=== PATIENT | female | born 1940 | race Caucasian/White ===

== ENCOUNTER 2020-02-15 18:43 | Emergency (ER) | payer OTHER, SELFPAY ==
[2020-02-15] VITALS (7 sets, daily range): BP systolic 146–188; BP diastolic 56–117; PULSE 68–86; RESP 10–20; TEMP 36.6; O2SAT 98–100
--- NOTE | ~2020-02-15 | XR_ITS ---
EXAMINATION: XR chest 2V DATE: 02/15/2020 19:40 INDICATION: Low to mid right-sided chest pain. TECHNIQUE: Frontal and lateral views of the chest were obtained. COMPARISON: chest CT 07/12/2018 FINDINGS: Lung volumes are normal. There are reticular opacities in right lower lung zone. No pleural effusion or pneumothorax. The heart size is normal. There are surgical clips in the abdomen. IMPRESSION: 1. Stable reticular opacities in right lower lung zone, consistent with chronic interstitial lung dis ease. Reviewed, dictated and finalized at location A. IMPRESSION: 1. Stable reticular opacities in right lower lung zone, consistent with chronic interstitial lung disease.
--- NOTE | 2020-02-15 18:48 | ECG_ITS ---
Measurements Intervals [place] Rate: 74 P: 58 HI: 162 QRS: -3 QRSD: 97 T: 44 QT: 371 QTc: 413 Interpretive Statements SINUS RHYTHM CANNOT RULE OUT SEPTAL INFARCT, AGE INDETERMINATE BASELINE WANDER- V3 ABNORMAL ECG Electronically Signed On 02-16-2020 6:55:48 CDT by Lance Blanchard D.O.
--- NOTE | 2020-02-15 18:54 | PC.NURSE ---
PT REFUSING IV OR BLOOD DRAW AT THIS TIME. STATES YOU MUST THINK I''M CRAZY, ITS NOT MY HEART ITS MY STOMACH, DON'T' COME NEAR ME. ERP NOTED, NO NEW ORDERS.
[2020-02-15 19:21] LABS: Basophils Percent Auto 0.4 % (0.2-1.2); Eosinophils Percent Auto 0.2 % (0-4.4); Hematocrit 36.3 % (37.0-47.0); Hemoglobin 11.7 g/dL (12.0-15.0); Immature Granulocyte Absolute 0.01 K/mm3 (0.00-0.031); Immature Granulocyte Percent A 0.2 % (0-0.5); Lymphocytes Absolute Auto 0.82 K/mm3 (0.9-3.2); Lymphocytes Percent Auto 15.3 % (18.3-44.2); Mean Corpuscular HGB Conc 32.2 g/dl (32-36); Mean Corpuscular Volume 90.1 fl (80-100); Mean Platelet Volume 9.5 fl (7.4-10.4); Monocytes Absolute Auto 0.3 K/mm3 (0.1-0.6); Monocytes Percent Auto 5.2 % (2.6-8.5); Neutrophils Absolute Auto 4.2 K/mm3 (1.3-6.7); Neutrophils Percent Auto 78.7 % (45.5-73.1); Platelet Count Result 223 k/mm3 (150-375); Red Blood Count 4.03 M/mm3 (4.2-5.4); Red Cell Distribution Width 12.9 % (11.5-14.5); White Blood Count 5.4 K/mm3 (4.5-10.0)
--- NOTE | 2020-02-15 19:27 | PC.NURSE ---
BEDSIDE REPORT GIVEN TO MARGARETTE BRITO AT THIS TIME, SHE HAS ASSUMED PT CARE.
[2020-02-15 19:30] LABS: INR 1.1; Prothrombin Time 13.6 Seconds (11.1-14.7)
[2020-02-15 19:31] LABS: Partial Thromboplastin Time 28.9 SECONDS (22.3-36.8)
[2020-02-15 19:33] LABS: Blood Urea Nitrogen 15 mg/dL (7-17); Calcium 8.8 mg/dL (8.4-10.2); Carbon Dioxide 30 mmol/L (22-30); Chloride 105 mmol/L (98-107); Estimated CRCL calculation 59 ml/min; Estimated Glomerular Filt Rate > 60; Glucose 175 mg/dL (65-105); Potassium 4.2 mmol/L (3.4-5.0); Sodium 138 mmol/L (137-145)
--- NOTE | 2020-02-15 19:33 | ED.CHESTPAIN ---
HPI - Chest Pain General Chief Complaint: Chest Pain Stated Complaint: epigastric pain Time Seen by Provider: 02/15/20 19:32 Source: patient and family Mode of arrival: ambulatory Limitations: no limitations History of Present Illness HPI narrative: Patient is a 79-year-old female who presents for evaluation of epigastric pain. Pain at the time of assessment is moderate in nature, 5 out of 10. Pain has been presents since early this morning and constant. Patient reports that her pain improves when she passes gas. She reports having a normal bowel movement this morning. She denies chest pain, shortness of breath, nausea, diaphoresis. Pain was cramping in nature, and worsened this morning. Patient was seen in her primary care physician's office and given IM Toradol which seemed to exacerbate the pain. Patient states that she does not tolerate new medications well and is worried she may have had an adverse reaction to this new medication. Patient denies fever or chills. No urinary symptoms. No pleuritic pain or shortness of breath. No cough. Related Data Allergies Allergy/AdvReac Type Severity Reaction Status Date / Time aspirin Allergy Unknown Verified 07/02/18 09:16 ioversol Allergy Unknown Verified 07/02/18 09:16 Sulfa (Sulfonamide Allergy Unknown Verified 07/02/18 09:16 Antibiotics) Review of Systems Review of Systems: Narrative: CONSTITUTIONAL: Denies fever, chills, or sweats. CARDIOVASCULAR: Denies chest pain, palpitations, or edema. RESPIRATORY: Denies cough or dyspnea. GASTROINTESTINAL: Reports epigastric abdominal pain, denies nausea, vomiting or diarrhea GENITOURINARY: Denies dysuria or hematuria. SKIN: Denies rash or itching. MUSCULOSKELETAL: Denies back pain, joint pain, or myalgia. NEUROLOGIC: Denies headache, numbness, or weakness. [facility] Past Medical History Medical History (Updated 02/15/20 @ 22:19 by Aisha Patton MD) Acid reflux Hypertension Indigestion Surgical History Surgical History (Updated 02/15/20 @ 22:19 by Aisha Patton MD) Hx of gastric bypass Social History Social History Smoking status: Former smoker Smoking end date: 09/07/1966 Alcohol intake: never Substance use type: marijuana Gender identity (if verbalized by the patient): Female Exam Narrative: Exam Narrative: GENERAL: Awake, alert, conversant HEAD: Normocephalic, atraumatic. EYES: PERRLA and EOMI. ENT: Nares clear, no rhinorrhea or epistaxis. Mucous membranes moist. NECK: Supple. CHEST: No respiratory distress, breathing even and non labored HEART: Regular rate, sinus rhythm ABDOMEN:Non distended, non tender, no epigastric tenderness on exam, no rebound or guarding EXTREMITIES: Normal range of motion. No edema. SKIN: Warm, dry, no rash. NEURO:No focal deficits. Alert and oriented x3 Course Vital Signs Vital signs: Vital Signs Temperature 36.6 C 02/15/20 18:49 Pulse Rate 86 02/15/20 18:49 Respiratory Rate 20 02/15/20 18:49 Blood Pressure 188/75 H 02/15/20 18:49 Pulse Oximetry 100 02/15/20 18:49 Temperature 36.6 C 02/15/20 18:49 Pulse Rate 70 02/15/20 21:37 Respiratory Rate 10 L 02/15/20 21:37 Blood Pressure 146/68 H 02/15/20 21:37 Pulse Oximetry 100 02/15/20 21:37 MDM - Chest Pain MDM Narrative Medical decision making narrative: Patient presented to the emergency department for evaluation of epigastric pain. At the time of assessment, ABCs are intact and vital signs are stable. Patient has no chest pain, shortness of breath, diaphoresis or palpitations. Pain is very consistent with the patient's history of chronic indigestion but just worse than normal which is why she was seen in her primary care physician's office this morning. Patient states that she thinks she had an adverse reaction to the Toradol given to her, as she often reacts badly to medications. Patient has a mild elevation in AST, ALT, I do not have prior laboratory results available
[2020-02-15 19:45] LABS: Troponin I < 0.012 ng/mL (0.000-0.034)
--- NOTE | 2020-02-15 20:02 | PC.NURSE ---
Called lab to add on CMP and Lipase.
[2020-02-15 20:18] LABS: Alanine Aminotransferase 57 U/L (4-35); Albumin Level 3.7 g/dL (3.5-5.1); Alkaline Phosphatase 109 U/L (38-126); Aspartate Amino Transferase 207 U/L (14-36); Bilirubin,Total 0.4 mg/dL (0.2-1.3); Blood Urea Nitrogen 14 mg/dL (7-17); Calcium 8.9 mg/dL (8.4-10.2); Carbon Dioxide 30 mmol/L (22-30); Chloride 106 mmol/L (98-107); Estimated CRCL calculation 59 ml/min; Estimated Glomerular Filt Rate > 60; Glucose 180 mg/dL (65-105); Lipase 340 U/L (23-300); Potassium 4.2 mmol/L (3.4-5.0); Sodium 137 mmol/L (137-145)
== END 2020-02-15 22:30 | disposition home or self-care (01) ==
PROVIDERS: Emergency Medicine; Emergency Provider Emergency Medicine; PCP Internal Medicine
DX: R10.13 Epigastric pain (principal); I10 Essential (primary) hypertension; K21.9 Gastro-esophageal reflux disease without esophagitis; Z98.84 Bariatric surgery status; Z87.891 Personal history of nicotine dependence; Z79.82 Long term (current) use of aspirin
CPT/HCPCS: 36415; 71046; 80048; 80053; 83690; 84484; 85025; 85610; 85730; 93005; 99284

== ENCOUNTER 2020-12-24 15:26 | Outpatient (CLI) | payer OTHER, SELFPAY ==
--- NOTE | ~2020-12-24 | XR_ITS ---
EXAMINATION: XR thoracic spine 3V DATE: 12/24/2020 15:55 INDICATION: Thoracic spinal stenosis. TECHNIQUE: 3 views of thoracic spine were obtained. COMPARISON: Chest CT 07/12/2018 FINDINGS: There is kyphosis and 7 degrees dextrocurvature of thoracic spine. There is mild chronic an terior wedging of T6-T8 vertebral bodies. There are endplate osteophytes at most levels. There is mod erately decreased disc height at multiple levels in mid thoracic spine. There are surgical clips arou nd the stomach. IMPRESSION: 1. Moderate thoracic spondylosis. 2. Thoracic kyphosis. Reviewed, dictated and finalized at location B.
== END 2020-12-24 15:27 | disposition home or self-care (01) ==
LOC: ANHIMG 15:31
PROVIDERS: PCP Internal Medicine; Visit Provider Internal Medicine
DX: M47.894 Other spondylosis, thoracic region (principal)
CPT/HCPCS: 72072

== ENCOUNTER 2021-01-19 06:45 | Inpatient (IN) | payer OTHER, SELFPAY ==
[2021-01-19] VITALS (29 sets, daily range): BP systolic 104–172; BP diastolic 46–90; PULSE 56–85; RESP 12–25; TEMP 36.1–37.1; O2SAT 90–100; BMI 26.7
--- NOTE | ~2021-01-19 | XR_ITS ---
EXAMINATION: XR chest 1V portable EXAM DATE: 02/07/2021 11:35 INDICATION: Hypoxia. TECHNIQUE: Portable AP frontal chest x-ray was obtained. Comparison is made to prior examination from 02/03/2021. FINDINGS: Dobhoff feeding tube in expected position. There is a left-sided PICC line. Patient is rec eiving oxygen. Multiple upper abdominal surgical clips, anastomosis material. Again there our small bilateral pneumothoraces, left greater than right, stable. Evidence of pneumome diastinum with improvement. Bilateral axillary gas. Moderate amount of ill-defined bilateral acute ai rspace disease. There are no sizable pleural effusions. Cardiomediastinal silhouette is normal. The bones are osteopenic. There are bony degenerative changes. IMPRESSION: 1. Stable small apical pneumothoraces and diffuse airspace disease. 2. Improving pneumomediastinum. Reviewed, dictated and finalized at location B.
--- NOTE | ~2021-01-19 | XR_ITS ---
EXAMINATION: XR abdomen NG/feed tube insert DATE: 02/05/2021 10:25 INDICATION: Nasogastric tube placement. TECHNIQUE: An upright view of the abdomen was obtained. COMPARISON: Chest single view 02/03/2021 FINDINGS: Again seen is subcutaneous emphysema in the chest wall bilaterally. Pneumomediastinum is ag ain noted. The nasogastric tube is folded on itself with tip in the distal esophagus. There are surgi aurelia changes of the stomach. A left upper extremity peripherally inserted central venous catheter (PIC C) is seen with tip at the superior cavoatrial junction. There are no dilated loops of bowel. The low er abdomen is excluded. IMPRESSION: 1. Nasogastric tube folded on itself with tip in the distal esophagus. Reviewed, dictated and finalized at location A.
--- NOTE | ~2021-01-19 | XR_ITS ---
EXAMINATION: XR chest 1V portable DATE: 01/27/2021 05:47 INDICATION: Pneumothorax TECHNIQUE: frontal view of the chest was obtained. COMPARISON: Chest radiograph dated 01/26/2021 FINDINGS: Minimal lucency at the periphery of the right apex and inferomedial aspect of the left lung which cou ld represent tiny residual bilateral pneumothoraces versus gas associated with pneumomediastinum and chest wall subcutaneous emphysema. Interval improvement in the patchy airspace opacities in the bilat eral mid to lower lung zones. The cardiomediastinal silhouette is normal. Postoperative changes in th e left epigastric region. IMPRESSION: 1. Interval decrease in bilateral airspace opacities which could represent pneumonia and/or pulmonary edema. 2. Minimal change in pneumomediastinum, subcutaneous emphysema and possible tiny bilateral pneumothor aces. Reviewed, dictated and finalized at location A. IMPRESSION: 1. Interval decrease in bilateral airspace opacities which could represent pneu monia and/or pulmonary edema. 2. Minimal change in pneumomediastinum, subcutaneous emphysema and possible tin y bilateral pneumothoraces.
--- NOTE | ~2021-01-19 | XR_ITS ---
EXAMINATION: XR chest 1V portable DATE: 02/03/2021 10:19 INDICATION: Shortness of breath. COVID-19 pneumonia. TECHNIQUE: A single frontal view of the chest was obtained. COMPARISON: Chest single view 02/01/2021, chest CT 01/25/2021 FINDINGS: Again seen is subcutaneous emphysema in the chest wall bilaterally. There are small bilater al pneumothoraces. There is a diffuse interstitial pattern in the lungs. There are mild airspace opac ities in the mid and lower lung zones. No pleural effusion. The heart size is normal. Pneumomediastin um is noted. A left upper extremity peripherally inserted central venous catheter (PICC) is seen with tip in the superior vena cava. There are surgical changes of the stomach. IMPRESSION: 1. Diffuse lung disease with slight improvement, consistent with COVID-19 pneumonia without other wit h mild pulmonary edema. 2. Small bilateral pneumothoraces with worsening on the right. 3. Pneumomediastinum and bilateral subcutaneous emphysema again seen. Reviewed, dictated and finalized at location A. IMPRESSION: 1. Diffuse lung disease with slight improvement, consistent with COVID-19 pneum onia without other with mild pulmonary edema. 2. Small bilateral pneumothoraces with worsening on the right. 3. Pneumomediastinum and bilateral subcutaneous emphysema again seen.
--- NOTE | ~2021-01-19 | XR_ITS ---
EXAMINATION: XR abdomen NG/feed tube rechec DATE: 02/05/2021 10:57 INDICATION: Nasogastric tube adjustment. TECHNIQUE: An upright view of the abdomen was obtained. COMPARISON: Abdomen radiograph at 10:14 AM, chest single view 02/03/2021 FINDINGS: The lower abdomen is excluded. There are no dilated loops of bowel. There are surgical morgan ges of the stomach. The nasogastric tube tip is at the gastroesophageal junction. A left upper extrem ity peripherally inserted central venous catheter (PICC) is seen with tip in the superior vena cava. Pneumomediastinum is noted. There is subcutaneous gas in the chest wall bilaterally. Again seen are s mall bilateral pneumothoraces. There are airspace opacities in the lungs, worst at left lung base. West rgical clips in the right upper quadrant are likely from cholecystectomy. IMPRESSION: 1. Nasogastric tube tip at the gastroesophageal junction. 2. Diffuse lung disease, consistent with pneumonia. 3. Pneumomediastinum and small bilateral pneumothoraces, stable from 02/03/2021. Persistent subcutaneo us emphysema. Reviewed, dictated and finalized at location A. IMPRESSION: 1. Nasogastric tube tip at the gastroesophageal junction. 2. Diffuse lung disease, consistent with pneumonia. 3. Pneumomediastinum and small bilateral pneumothoraces, stable from 02/03/2021. Persistent subcutaneous emphysema.
--- NOTE | ~2021-01-19 | XR_ITS ---
EXAMINATION: XR chest 1V portable INDICATION: Shortness of breath TECHNIQUE: Portable AP chest at 0504 hours COMPARISON: 01/28/2021 FINDINGS: A left upper extremity PICC ends with its tip in the midsuperior vena cava. Diffuse opaciti es persist in all lung zones without significant change. No pleural effusion or pneumothorax is ident ified. There is a small amount of persistent pneumomediastinum. Soft tissue gas is also noted in the right axilla. The heart size is normal. IMPRESSION: 1. Stable diffuse lung disease, consistent with pneumonia and/or pulmonary edema and/or acute respira tory distress syndrome (ARDS). 2. Small amount of residual pneumomediastinum and soft tissue gas in the right axilla. Reviewed, dictated and finalized at location A. IMPRESSION: 1. Stable diffuse lung disease, consistent with pneumonia and/or pulmonary aquilino a and/or acute respiratory distress syndrome (ARDS). 2. Small amount of residual pneumomediastinum and soft tissue gas in the right axilla.
--- NOTE | ~2021-01-19 | XR_ITS ---
XR chest PICC line 01/28/2021 17:12 Indication: PICC line placement Procedure: AP portable chest Comparison: Comparison to multiple prior studies sequentially, with oldest reviewed study dated 02/14. Findings: Heart size normal. There is diffuse bilateral airspace disease which has progressed since p rior examination. There is pneumomediastinum. No definite pneumothorax visualized. There is subcutane ous gas overlying the right scapula. No acute osseous abnormality. PICC line tip in the SVC. Impression: 1: Progression of diffuse bilateral airspace disease which may represent edema and/or pneumonia. 2: Small pneumomediastinum. Improved subcutaneous gas overlying the right shoulder. No definitive pn eumothorax. Reviewed, dictated and finalized at location A. Impression: 1: Progression of diffuse bilateral airspace disease which may represent edema and/or pneumonia. 2: Small pneumomediastinum. Improved subcutaneous gas overlying the right shou lder. No definitive pneumothorax.
--- NOTE | ~2021-01-19 | XR_ITS ---
EXAMINATION: XR chest 1V portable INDICATION: Shortness of breath TECHNIQUE: Portable AP chest at 0510 hours COMPARISON: 01/29/2021 FINDINGS: A left upper extremity PICC ends with its tip in the midsuperior vena cava. Diffuse opaciti es persist in all lung zones with slight worsening in the left upper lung zone. There is no pleural e ffusion or pneumothorax. The cardiomediastinal silhouette is stable. There are surgical changes in th e upper abdomen. Previously described pneumomediastinum and soft tissue gas in the right axilla are n o longer identified. The patient's hand projects over the left lung base. IMPRESSION: 1. Diffuse lung disease with interval worsening in the left upper lung zone, consistent with pneumoni a and/or pulmonary edema and/or acute respiratory distress syndrome (ARDS). 2. Previously described pneumomediastinum and soft tissue gas in the right axilla are no longer ident ified. Reviewed, dictated and finalized at location A. IMPRESSION: 1. Diffuse lung disease with interval worsening in the left upper lung zone, co nsistent with pneumonia and/or pulmonary edema and/or acute respiratory distres s syndrome (ARDS). 2. Previously described pneumomediastinum and soft tissue gas in the right axil la are no longer identified.
--- NOTE | ~2021-01-19 | CT_ITS ---
EXAMINATION: CTA chest PE protocol DATE: 01/22/2021 05:14 INDICATION: Decreased oxygenation. TECHNIQUE: Computed tomography angiography (CTA) of the chest was performed with 100 mL Omnipaque-350 intravenous contrast timed to evaluate the pulmonary arteries. Coronal maximum intensity projection 3D-reconstructions were created by the technologist. Automated exposure control and iterative reconst ruction technique were employed. The dose-length product was 482.51 mGy-cm. COMPARISON: Chest CT 07/12/2018 FINDINGS: There are widespread groundglass opacities involving all lung segments with some areas of c razy paving. There is chronic peripheral septal thickening involving all lobes. No bronchiectasis or honeycombing. Cardiomegaly is noted. There are coronary artery calcifications. No pericardial effusio n. There is no pulmonary embolus. There is mild mediastinal lymphadenopathy, likely reactive. There a re surgical changes in the stomach. There is a 2 mm stone in right kidney. There is thoracic kyphosis , dextroscoliosis, and moderate spondylosis. IMPRESSION: 1. Acute diffuse lung disease, consistent with atypical pneumonia such as COVID-19 pneumonia versus p ulmonary edema. 2. Mild chronic interstitial lung disease. 3. No pulmonary embolus. Sensitivity is mildly decreased by motion artifact. 4. Mild mediastinal lymphadenopathy, likely reactive. Reviewed, dictated and finalized at location A. IMPRESSION: 1. Acute diffuse lung disease, consistent with atypical pneumonia such as COVID -19 pneumonia versus pulmonary edema. 2. Mild chronic interstitial lung disease. 3. No pulmonary embolus. Sensitivity is mildly decreased by motion artifact. 4. Mild mediastinal lymphadenopathy, likely reactive.
--- NOTE | ~2021-01-19 | CT_ITS ---
EXAMINATION: CTA chest PE protocol DATE: 01/25/2021 22:10 INDICATION: Increasing shortness of breath TECHNIQUE: Computed tomography angiography (CTA) of the chest was performed with 100 mL Omnipaque-350 intravenous contrast timed to evaluate the pulmonary arteries. Coronal maximum intensity projection 3D-reconstructions were created by the technologist. The dose-length product (DLP) was 270.68 mGy-cm. Automated exposure control and iterative reconstruction technique were employed. COMPARISON: 01/22/2021 FINDINGS: The pulmonary arteries are well-opacified. No pulmonary embolism is identified. There are w idespread groundglass opacities throughout all lung zones which demonstrate interval worsening. There is also been development of widespread pneumomediastinum which tracks into the neck and bilateral ax illary. A small right pneumothorax has also developed. There is no pleural effusion. 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 No pathologically enlarged thoracic lymph nodes are identified. The heart size is normal. IMPRESSION: 1. Development of widespread pneumomediastinum tracking into the neck and bilateral axillae. 2. Small right pneumothorax. 3. No pulmonary embolus identified. 4. Interval worsening widespread groundglass opacities, consistent with pneumonia versus pulmonary ed faustina. These findings [facility] 01/25/2021. Reviewed, dictated and finalized at location A. IMPRESSION: 1. Development of widespread pneumomediastinum tracking into the neck and bilat eral axillae. 2. Small right pneumothorax. 3. No pulmonary embolus identified. 4. Interval worsening widespread groundglass opacities, consistent with pneumon ia versus pulmonary edema. These findings were discussed with [facility] hours on 01/25/2021.
--- NOTE | ~2021-01-19 | XR_ITS ---
EXAMINATION: XR chest 1V portable DATE: 02/08/2021 00:56 INDICATION: Shortness of breath and increasing oxygen need TECHNIQUE: frontal view of the chest was obtained. COMPARISON: Chest radiograph dated 02/07/2021 FINDINGS: Left upper extremity peripherally inserted central venous catheter (PICC) tip at the superior cavoat rial junction. Postoperative changes in the upper abdomen corresponding to prior gastric bypass proce dure. The weighted tip of a Dobbhoff type nasoenteric feeding tube remains coiled below the gastroeso phageal junction within the residual gastric remnant. No significant interval change accounting for differences in patient positioning and airspace opaciti es in the bilateral mid and lower lung zones. Persistent subcutaneous emphysema at the bilateral uppe r chest and shoulders. Minimal lucency at the periphery of the bilateral apices of the lungs which co uld be related to residual pneumomediastinum or tiny pneumothoraces. No pleural effusion. The cardiom ediastinal silhouette is normal. Moderate thoracic spondylosis. IMPRESSION: 1. No interval change in patchy bilateral lung disease consistent with pneumonia, atelectasis, mild p ulmonary edema or some combination thereof. 2. Persistent pneumomediastinum, soft tissue gas at the bilateral upper chest and shoulders and likel y persistent tiny biapical pneumothoraces. Reviewed, dictated and finalized at location A. IMPRESSION: 1. No interval change in patchy bilateral lung disease consistent with pneumoni a, atelectasis, mild pulmonary edema or some combination thereof. 2. Persistent pneumomediastinum, soft tissue gas at the bilateral upper chest a nd shoulders and likely persistent tiny biapical pneumothoraces.
--- NOTE | ~2021-01-19 | XR_ITS ---
EXAMINATION: XR chest 1V portable DATE: 02/01/2021 11:51 INDICATION: Shortness of breath TECHNIQUE: frontal view of the chest was obtained. COMPARISON: Chest radiograph dated 01/30/2021 FINDINGS: Left upper extremity peripherally inserted central venous catheter (PICC) tip at the caudal superior vena cava. Minimal change attending for differences in patient positioning and scattered patchy airs pace opacities throughout both lungs. No pleural effusion. Persistent pneumomediastinum and subcutane ous emphysema in the upper chest, left greater than right. Thin peripheral lucencies at the bilateral apices likely representing tiny bilateral pneumothoraces although appearance could be artifact of holguin bpleural emphysema. The cardiomediastinal silhouette is normal. Cholecystectomy clips in right upper quadrant and additional postoperative changes with multiple sutures in the left epigastric region. IMPRESSION: 1. No significant interval change in diffuse patchy bilateral lung disease which could represent pneu monia and/or pulmonary edema. 2. Persistent pneumomediastinum and subcutaneous emphysema in the upper chest and likely tiny biapica l pneumothoraces. Reviewed, dictated and finalized at location A. IMPRESSION: 1. No significant interval change in diffuse patchy bilateral lung disease whic h could represent pneumonia and/or pulmonary edema. 2. Persistent pneumomediastinum and subcutaneous emphysema in the upper chest a nd likely tiny biapical pneumothoraces.
--- NOTE | ~2021-01-19 | XR_ITS ---
EXAMINATION: XR chest 1V portable DATE: 01/26/2021 08:51 INDICATION: Pneumonia TECHNIQUE: frontal view of the chest was obtained. COMPARISON: Chest radiograph dated 01/19/[address] dated 01/25/2021 FINDINGS: There is pneumomediastinum and subcutaneous emphysema about the right shoulder. Diffuse bilateral lyle undglass opacities with more focal consolidation in the left lower lung zone. No pleural effusion. Ti ny biapical pneumothoraces are not excludable however appearance on prior CT suggests this is more li vilma to represent emphysema in the immediately subpleural soft tissues. Heart size is normal. Atheros clerotic aorta. Postoperative changes in the epigastric region likely related to prior gastric bypass . IMPRESSION: 1. Diffuse bilateral lung disease with more focal consolidation in the left lower lung zone which cou ld represent pneumonia and/or pulmonary edema. 2. Lucencies at the periphery of the bilateral apices of lungs which could represent tiny pneumothora john or more likely pneumomediastinum and subcutaneous emphysema.. Reviewed, dictated and finalized at location A. IMPRESSION: 1. Diffuse bilateral lung disease with more focal consolidation in the left low er lung zone which could represent pneumonia and/or pulmonary edema. 2. Lucencies at the periphery of the bilateral apices of lungs which could repr esent tiny pneumothoraces or more likely pneumomediastinum and subcutaneous emp hysema..
--- NOTE | ~2021-01-19 | XR_ITS ---
XR chest 2V DATE: 01/19/2021 07:34 INDICATION: Intermittent dizziness. Weakness. Bilateral leg pain. TECHNIQUE: AP and lateral views COMPARISON: 02/15/2020 AP and lateral chest FINDINGS: Heart size appears within normal range. There is aortic arch calcification. No hilar or med iastinal enlargement is evident. Minimal scattered patchy infiltrate and/or atelectasis of the lungs is suggested bilaterally. Diffuse osteopenia. Osteoarthritic change at the left glenohumeral joint. Postoperative changes of the left and right abdomen. IMPRESSION: Minimal scattered patchy infiltrate and/atelectasis of the lungs Reviewed, dictated and finalized at location A.
--- NOTE | ~2021-01-19 | XR_ITS ---
EXAMINATION: XR abdomen NG/feed tube rechec DATE: 02/05/2021 10:26 INDICATION: Nasogastric tube adjustment. TECHNIQUE: An upright view of the abdomen was obtained. COMPARISON: Abdomen single view at 10:02 AM, chest single view 02/03/2021 FINDINGS: The lower abdomen is excluded. There are no dilated loops of bowel. There are surgical morgan ges of the stomach. Surgical clips in the right upper quadrant are likely from cholecystectomy. Nasog astric tube is folded on itself in the esophagus. A left upper extremity peripherally inserted centra l venous catheter (PICC) is seen with tip at the superior cavoatrial junction. Pneumomediastinum is n oted. There is subcutaneous emphysema in the chest wall bilaterally. There are airspace opacities in the lungs, worst at left lung base. IMPRESSION: 1. Nasogastric tube folded on itself in the esophagus. 2. Diffuse lung disease with worsening at left lung base from 02/03/2021, consistent with pneumonia. 3. Pneumomediastinum. Chest wall subcutaneous emphysema. Reviewed, dictated and finalized at location A. IMPRESSION: 1. Nasogastric tube folded on itself in the esophagus. 2. Diffuse lung disease with worsening at left lung base from 02/03/2021, consis tent with pneumonia. 3. Pneumomediastinum. Chest wall subcutaneous emphysema.
--- NOTE | ~2021-01-19 | XR_ITS ---
EXAMINATION: XR fl Dobhoff insert/rad w img DATE: 02/05/2021 12:28 INDICATION: Unsuccessful nasogastric tube placement. Fluoroscopic guidance requested for feeding tube advancement. TECHNIQUE: Attempt was initially made to reposition the existing nasogastric tube the distal tip of grupo ye was positioned in the distal esophagus. Despite multiple attempts this proved unsuccessful. 5 mm of water-soluble contrast was injected into the tube prior to removal to delineate the course of the lumen which is comparable dictated by postoperative change of prior gastric bypass procedure. The na sogastric tube is in removed and a Dobbhoff type feeding tube was advanced under fluoroscopic observa tion beyond the gastroesophageal junction into the gastric remnant but was unable to be advanced furt her. Some redundancy to the tube was left in the gastric remnant and the tube was attached to the adis es with adhesive tape. A single fluoroscopic image was recorded. The amount of fluoroscopy time used during this procedure was 2.1 minutes. COMPARISON: Multiple radiographs dated 02/05/[address] dated 01/25/2021 FINDINGS: Image demonstrates the weighted tip of the Dobbhoff type nasoenteric feeding tube coiled within the s mall gastric remnant in the left upper quadrant with postoperative change of prior Mary-en-Y gastric bypass procedure which is better delineated on prior CT. There is a small amount of injected contrast within the lumen of the gastric remnant. Incidentally noted on real-time imaging was pneumomediastin um and subcutaneous emphysema in the upper chest. IMPRESSION: 1. Successful fluoroscopic guided advancement of a Dobbhoff type nasal enteric feeding tube into the gastric remnant post prior Mary-en-Y gastric bypass procedure. Reviewed, dictated and finalized at location A. IMPRESSION: 1. Successful fluoroscopic guided advancement of a Dobbhoff type nasal enteric feeding tube into the gastric remnant post prior Mary-en-Y gastric bypass kellie lerma
--- NOTE | 2021-01-19 06:53 | ECG_ITS ---
Measurements Intervals [place] Rate: 73 P: 59 NE: 170 QRS: -11 QRSD: 90 T: 47 QT: 382 QTc: 424 Interpretive Statements SINUS RHYTHM VOLTAGE CRITERIA FOR LVH CANNOT RULE OUT SEPTAL INFARCT, AGE INDETERMINATE BASELINE ARTIFACT- I, III, AVL, AVF ABNORMAL ECG Electronically Signed On 01-19-2021 7:52:21 CDT by Lance Blanchard D.O.
--- NOTE | 2021-01-19 07:05 | ED.WEAKNESS ---
HPI - Weakness General Chief complaint: Weakness Stated complaint: weakness Time Seen by Provider: 01/19/21 07:01 History of Present Illness HPI Narrative: 80 yo female presents to the ED for weakness. She reports that she has been sick for 5 years. She says that she has been evaluated for this multiple times and no cause has ever been found. She reports that she has had no appetite for quite some time. She has had 60 pound unintentional weight loss. Over the past few weeks she has had nausea and diarrhea. No blood, stools have been dark. Now she is feeling extremely weak and fatigued. She reportedly just started seeing a artist model and was started on prednisone. She does not know why she is seeing them or what the medication is for. No CP, SOB, syncope, abdominal pain, dysuria, hematuria. Related Data Home Medications Medication Instructions Recorded Confirmed hydrocodone-acetaminophen [[place]] 1 tablet Q8H PRN 01/19/21 01/19/21 morphine 15 mg PO Q12H PRN 01/19/21 01/19/21 prednisone 5 mg PO DAILY 01/19/21 01/19/21 Allergies Allergy/AdvReac Type Severity Reaction Status Date / Time aspirin Allergy Unknown Unknown Verified 01/19/21 15:51 ioversol Allergy Unknown Unknown Verified 01/19/21 15:51 Sulfa (Sulfonamide Allergy Unknown Unknown Verified 01/19/21 15:51 Antibiotics) Review of Systems Review of Systems: All systems reviewed & are unremarkable except as noted in HPI and below Constitutional: Constitutional: Denies chills, Reports fatigue, Denies fever(s) and Reports weakness Eyes: Eyes: Reports no additional eye complaints ENT: Reports dizziness and Denies sore throat Cardiovascular: Cardiovascular: Denies chest pain Respiratory: Respiratory: Denies dyspnea Gastrointestinal: Gastrointestinal: Reports as per HPI Genitourinary: Genitourinary: Denies hematuria and Denies dysuria Musculoskeletal: Musculoskeletal: Reports no additional musculoskeletal complaints Neurologic: Reports as per HPI PMFSH Past Medical History Medical History Acid reflux Hypertension Indigestion Surgical History Surgical History Hx of gastric bypass Social History Social History Smoking status: Never smoker Smoking end date: 09/07/1966 Alcohol intake: never Substance use type: marijuana Gender identity (if verbalized by the patient): Female Spiritual care concerns: No Exam Const: General: no acute distress and alert Orientation/consciousness: patient oriented x3 HENMT: Mouth: Yes dry mucous membranes Eyes: Pupils: Equal, round and reactive pupils present EOM: EOMs intact bilaterally Neck: Neck: normal visual inspection Chest: Chest palpation & inspection: normal inspection of the chest Resp: Effort & Inspection: normal respiratory effort Auscultation: clear to auscultation bilaterally Cardio: Rate: regular rate Rhythm: regular rhythm GI: Inspection: non-distended GI Palp: Yes Soft to palpation, Yes Tenderness to palpation present (GI) (mild,diffuse), No Guarding due to palpation present (GI), No Palpable mass present and No Rebound tenderness present Skin: General skin exam: pallor Other: dried feces on feet and ankles Neuro: General: patient oriented x3, moves all extremities, no focal motor deficits and CN's II-XI intact bilaterally Speech: normal speech Extrem: General: no edema Course Vital Signs Vital signs: Vital Signs Temperature 37.1 C 01/19/21 06:45 Pulse Rate 77 01/19/21 06:45 Respiratory Rate 16 01/19/21 06:45 Blood Pressure 133/50 L 01/19/21 06:45 Pulse Oximetry 96 01/19/21 06:45 Temperature 36.4 C 01/22/21 06:00 Pulse Rate 70 01/22/21 06:00 Respiratory Rate 18 01/22/21 06:00 Blood Pressure 168/64 H 01/22/21 06:00 Pulse Oximetry 92 01/22/21 06:00 MDM - W
[2021-01-19 07:31] LABS: Hematocrit 32.2 % (37.0-47.0); Hemoglobin 10.4 g/dL (12.0-15.0); Immature Granulocyte Absolute 0.02 K/mm3 (0.00-0.031); Immature Granulocyte Percent A 0.5 % (0-0.5); Lymphocytes Absolute Auto 0.26 K/mm3 (0.9-3.2); Mean Corpuscular HGB Conc 32.3 g/dl (32-36); Mean Corpuscular Hemoglobin 27.9 pg (26-34); Mean Corpuscular Volume 86.3 fl (80-100); Mean Platelet Volume 10.2 fl (7.4-10.4); Monocytes Absolute Auto 0.3 K/mm3 (0.1-0.6); Neutrophils Absolute Auto 3.2 K/mm3 (1.3-6.7); Neutrophils Percent Auto 85.5 % (45.5-73.1); Platelet Count Result 172 k/mm3 (150-375); Red Blood Count 3.73 M/mm3 (4.2-5.4); Red Cell Distribution Width 13.2 % (11.5-14.5); White Blood Count 3.7 K/mm3 (4.5-10.0)
[2021-01-19 07:36] LABS: Add Urine Microscopic? YES; Appearance Urine Cloudy (Clear); Bilirubin Urine Negative (Negative); Blood Urine 1+ (Negative); Color Urine Amber (Yellow); Glucose Urine UA Negative (Negative); Ketones Urine Trace mg/dL (Negative); Leukocyte Esterase Ur Negative LEU/UL (Negative); Mucus Urine Heavy /lpf; Nitrate Urine Negative (Negative); Protein Urine 2+ mg/dL (Negative); RBC Urine 0-2 /hpf (0-2); Specific Grav Ur 1.026 (1.001-1.035); Squamous Epithelial Cell Urine Rare /hpf (Few); Urobilinogen Urine Negative mg/dL (<2.0); WBC Urine 0-3 /hpf
[2021-01-19 07:40] LABS: Alanine Aminotransferase 29 U/L (4-35); Alkaline Phosphatase 65 U/L (38-126); Anion Gap -1 mmol/L (8-16); Aspartate Amino Transferase 77 U/L (14-36); Bilirubin,Total < 0.1 mg/dL (0.2-1.3); Blood Urea Nitrogen 17 mg/dL (7-17); Calcium 7.8 mg/dL (8.4-10.2); Carbon Dioxide 28 mmol/L (22-30); Chloride 106 mmol/L (98-107); Estimated Glomerular Filt Rate > 60; Glucose 120 mg/dL (65-105); Potassium 3.5 mmol/L (3.4-5.0); Sodium 133 mmol/L (137-145)
[2021-01-19] MEDS: ONDANSETRON INJ 4 MG/2 ML VIAL IV PUSH ×2 (08:35→12:47)
[2021-01-19] MEDS: SODIUM CHLORIDE 0.9% IV 1,000 ML 999 ML IV CONT (08:36)
--- NOTE | 2021-01-19 13:02 | PM.IMHP ---
H&P: HPI History of Present Illness Date/Time: 01/19/21 13:02 Patient is 80-year-old female presented emergency department with a complaint chronic weakness chronic pelvic pain for 5 over 5 years patient states see has seen several gynecology and physician including [facility] at [facility] without any diagnosis recently patient was seen by what she described as rheumatology and patient was started on morphine, Vicodin and prednisone this regimen does help with her pain, is also seen by psychiatrist without any diagnosis or treatment, patient is quite depressed and crying, apparently her is very ill with cancer, and children are not much help in taking care of their parents, I did offer to transfer the patient to Psychiatry [facility] at [facility] patient refused, patient also presented to emergency department in January of 2020 at that time patient refused workup and was discharged, plan is to provide PT OT for the patient will continue her pain management, will monitor overnight and possibly discharge the patient in the morning., Patient is admitted observation status Chief Complaint: Chronic pelvic pain Review of Systems Review of Systems: All systems reviewed & are unremarkable except as noted in HPI and below PMFSH Past Medical History Medical History (Updated 01/19/21 @ 13:25 by Margarette Peter MD) Acid reflux Hypertension Indigestion Surgical History Surgical History (Updated 02/15/20 @ 22:19 by Aisha Patton MD) Hx of gastric bypass Social History Social History Smoking status: Never smoker Smoking end date: 09/07/1966 Alcohol intake: never Substance use type: marijuana Gender identity (if verbalized by the patient): Female Spiritual care concerns: No Meds Home Medications and Allergies Home Medications Medication Instructions Recorded Confirmed Type hydrocodone-acetaminophen [[place]] tablet Q8H PRN 01/19/21 History morphine 15 mg PO Q12H PRN 01/19/21 History prednisone 5 mg PO DAILY 01/19/21 History Allergies Allergy/AdvReac Type Severity Reaction Status Date / Time aspirin Allergy Unknown Unknown Verified 01/19/21 06:59 ioversol Allergy Unknown Unknown Verified 01/19/21 06:59 Sulfa (Sulfonamide Allergy Unknown Unknown Verified 01/19/21 06:59 Antibiotics) Vital Signs Vital Signs - 24 hr 01/19/21 06:45 01/19/21 06:57 01/19/21 07:00 Temperature 98.7 F Pulse Rate 77 85 Respiratory Rate 16 23 H Blood Pressure 133/50 L Pulse Oximetry 96 93 94 01/19/21 07:01 01/19/21 07:15 01/19/21 07:35 Temperature Pulse Rate 82 73 71 Respiratory Rate 18 12 14 Blood Pressure 150/64 H Pulse Oximetry 93 91 01/19/21 07:45 01/19/21 08:00 01/19/21 08:15 Temperature Pulse Rate 71 66 63 Respiratory Rate 19 17 18 Blood Pressure Pulse Oximetry 92 94 93 01/19/21 08:30 01/19/21 08:36 01/19/21 08:41 Temperature Pulse Rate 67 65 67 Respiratory Rate 15 17 14 Blood Pressure 115/72 Pulse Oximetry 95 96 97 01/19/21 08:43 01/19/21 08:45 01/19/21 09:00 Temperature Pulse Rate 64 62 58 L Respiratory Rate 13 14 15 Blood Pressure 117/52 L Pulse Oximetry 94 95 98 01/19/21 09:01 01/19/21 09:15 01/19/21 09:30 Temperature Pulse Rate 62 65 73 Respiratory Rate 15 15 13 Blood Pressure 123/51 L Pulse Oximetry 92 100 01/19/21 09:31 01/19/21 09:45 01/19/21 10:00 Temperature Pulse Rate 79 67 63 Respiratory Rate 25 H 19 25 H Blood Pressure 104/90 121/47 L Pulse Oximetry 95 96 92 01/19/21 10:01 01/19/21 10:15 01/19/21 10:30 Temperature Pulse Rate 63 60 57 L Respiratory Rate 21 H 16 16 Blood Pressure Pulse Oximetry 90 90 93 01/19/21 10:31 01/19/21 11:20 01/19/21 11:21 Temperature 97.2 F L Pulse Rate 56 L 65 66 Respiratory Rate 16 16 16 Blood Pressure 111/46 L 131/64 123/61 Pulse Oximetry 91 94 95 Exam Narrative: Exam Narrative: Elderly frail Patient is comfortable, NAD HEENT:
[2021-01-19] MEDS: LACTATED RINGERS 1,000 ML 75 ML IV CONT (15:28)
--- NOTE | 2021-01-19 15:55 | ADMGEN ---
This patient, Grisel Weston, was admitted to Medical Room 250-01. Patient/family oriented to hospital policies and general routines including ID bracelet, bed and alarms, visiting hours, pain management, procedures, bathroom and other care routines, personal items, smoking policy, room service/diet, and visiting hours. Information on how to activate the Rapid Response Team has been discussed. Patient/Family are encouraged to report perceived risks to care and to ask questions if they do not understand what they are told or what they should do.
[2021-01-19] MEDS: HYDROcodone/acetaminophen (*CRX) 10-325 MG TABLET 1 TAB BY MOUTH (18:57)
[2021-01-20] MEDS: HYDROcodone/acetaminophen (*CRX) 10-325 MG TABLET 1 TAB BY MOUTH ×4 (01:00→17:51)
[2021-01-20] MEDS: LACTATED RINGERS 1,000 ML 75 ML IV CONT (05:09)
[2021-01-20 05:14] VITALS: BP 149/54; PULSE 68; RESP 16; TEMP 36.3; O2SAT 95
[2021-01-20 07:18] LABS: Hematocrit 31.2 % (37.0-47.0); Hemoglobin 10.1 g/dL (12.0-15.0); Mean Corpuscular HGB Conc 32.4 g/dl (32-36); Mean Corpuscular Hemoglobin 27.4 pg (26-34); Mean Corpuscular Volume 84.8 fl (80-100); Mean Platelet Volume 10.4 fl (7.4-10.4); Platelet Count Result 160 k/mm3 (150-375); Red Blood Count 3.68 M/mm3 (4.2-5.4); Red Cell Distribution Width 13.1 % (11.5-14.5); White Blood Count 3.5 K/mm3 (4.5-10.0)
[2021-01-20 07:34] LABS: Alanine Aminotransferase 27 U/L (4-35); Albumin Level 2.8 g/dL (3.5-5.1); Alkaline Phosphatase 63 U/L (38-126); Anion Gap 3 mmol/L (8-16); Aspartate Amino Transferase 76 U/L (14-36); Bilirubin,Total < 0.1 mg/dL (0.2-1.3); Blood Urea Nitrogen 11 mg/dL (7-17); Calcium 7.8 mg/dL (8.4-10.2); Carbon Dioxide 26 mmol/L (22-30); Chloride 108 mmol/L (98-107); Estimated CRCL calculation 66 ml/min; Estimated Glomerular Filt Rate > 60; Glucose 84 mg/dL (65-105); Potassium 3.4 mmol/L (3.4-5.0); Sodium 137 mmol/L (137-145)
[2021-01-20] MEDS: predniSONE 5 MG TABLET 15 MG PO (08:43)
[2021-01-20] MEDS: POTASSIUM CHLORIDE 20 MEQ TABLET 40 MEQ PO (08:44)
--- NOTE | 2021-01-20 12:20 | PM.IMPN ---
Progress Note: A&P Assessment and Plan (1) Chronic pelvic pain syndrome in female: Code(s): R10.2 - Pelvic and perineal pain; G89.29 - Other chronic pain Status: Acute Assessment and Plan: 01/20/21 12:20 Patient is 80-year-old female presented emergency department with a complaint chronic weakness chronic pelvic pain for 5 over 5 years patient states see has seen several gynecology and physician including [facility] without any diagnosis recently patient was seen by what she described as rheumatology and patient was started on morphine, Vicodin and prednisone this regimen does help with her pain, is also seen by psychiatrist without any diagnosis or treatment, patient is quite depressed and crying, apparently her is very ill with cancer, and children are not much help in taking care of their parents, I did offer to transfer the patient to Psychiatry west at [facility] patient refused, patient also presented to emergency department in January of 2020 at that time patient refused workup and was discharged, plan is to provide PT OT for the patient will continue her pain management, will monitor overnight and possibly discharge the patient in the morning., 01/20 patient with chronic pelvic pain, we have started her on lower dose of [place] 5mg PO q6 PRN for 4-6 and [place] 10mg for pain above 7, held her morphine, today patient pain is somewhat controlled, and feel more anxious, will add valium 1mg BID as needed and two lidoderm patches, patient is seen by PT/OT, patient will benefit going to rehab before going home. (2) Depression: Code(s): F32.9 - Major depressive disorder, single episode, unspecified Status: Acute Assessment and Plan: Patient appears depressed has been seen by Psychiatry but not on any medication, did offer to transfer [facility] psychiatry west, patient refused Subjective Date/time seen: 01/20/21 12:20 Patient is 80-year-old female presented emergency department with a complaint chronic weakness chronic pelvic pain for 5 over 5 years patient states see has seen several gynecology and physician including [facility] without any diagnosis recently patient was seen by what she described as rheumatology and patient was started on morphine, Vicodin and prednisone this regimen does help with her pain, is also seen by psychiatrist without any diagnosis or treatment, patient is quite depressed and crying, apparently her is very ill with cancer, and children are not much help in taking care of their parents, I did offer to transfer the patient to Psychiatry west at [facility] patient refused, patient also presented to emergency department in January of 2020 at that time patient refused workup and was discharged, plan is to provide PT OT for the patient will continue her pain management, will monitor overnight and possibly discharge the patient in the morning., 01/20 patient with chronic pelvic pain, we have started her on lower dose of [place] 5mg PO q6 PRN for 4-6 and [place] 10mg for pain above 7, held her morphine, today patient pain is somewhat controlled, and feel more anxious, will add valium 1mg BID as needed and two lidoderm patches, patient is seen by PT/OT, patient will benefit going to rehab before going home. Review of Systems Review of Systems: All systems reviewed & are unremarkable except as noted in HPI and below Exam Narrative: Exam Narrative: Elderly frail Patient is comfortable, NAD HEENT: eyes are clear and none icteric LUNGS:CTA HEART: RR S1S2 ABD: Patient describes pain her lower abdomen and pelvic area Lower extremities: no edema SKIN: nonjaundiced Neuro: grossly intact patient appears depressed and crying. Objective Data Vital Signs Vital Signs: Vital Signs - 24 hr 01/19/21 14:00 01/19/21 21:28 01/20/21 05:14 Temperature 97.7 F 96.9 F L 97.4 F L Pulse Rate 60 73 68 Respiratory Ra
[2021-01-20] MEDS: diazePAM (*CRX) 2 MG TABLET 1 MG PO (13:02)
[2021-01-20 14:00] VITALS: PULSE 64; RESP 12; TEMP 36.2; O2SAT 90
[2021-01-20 14:39] VITALS: BP 190/70
[2021-01-20] MEDS: amLODIPine BESYLATE 5 MG TABLET PO (15:11)
[2021-01-20 16:20] VITALS: BP 173/51; PULSE 64
[2021-01-20 17:39] VITALS: BP 162/49
[2021-01-20 21:44] VITALS: BP 127/45; PULSE 64; RESP 16; TEMP 36.1; O2SAT 90
[2021-01-21] VITALS (7 sets, daily range): BP systolic 144–166; BP diastolic 49–63; PULSE 78–87; RESP 18–20; TEMP 36.2–36.7; O2SAT 91–94; BMI 26.7
[2021-01-21] MEDS: HYDROcodone/acetaminophen (*CRX) 10-325 MG TABLET 1 TAB BY MOUTH ×4 (01:38→21:12)
[2021-01-21 05:48] LABS: Hemoglobin 10.5 g/dL (12.0-15.0); Mean Corpuscular HGB Conc 31.8 g/dl (32-36); Mean Corpuscular Hemoglobin 27.6 pg (26-34); Mean Corpuscular Volume 86.8 fl (80-100); Mean Platelet Volume 10.1 fl (7.4-10.4); Platelet Count Result 183 k/mm3 (150-375); Red Cell Distribution Width 13.2 % (11.5-14.5); White Blood Count 3.7 K/mm3 (4.5-10.0)
[2021-01-21 06:13] LABS: Alanine Aminotransferase 24 U/L (4-35); Albumin Level 2.8 g/dL (3.5-5.1); Alkaline Phosphatase 60 U/L (38-126); Anion Gap 3 mmol/L (8-16); Aspartate Amino Transferase 65 U/L (14-36); Bilirubin,Total < 0.1 mg/dL (0.2-1.3); Blood Urea Nitrogen 13 mg/dL (7-17); Calcium 8.1 mg/dL (8.4-10.2); Carbon Dioxide 28 mmol/L (22-30); Chloride 105 mmol/L (98-107); Estimated CRCL calculation 49 ml/min; Estimated Glomerular Filt Rate > 60; Glucose 75 mg/dL (65-105); Potassium 3.9 mmol/L (3.4-5.0); Sodium 136 mmol/L (137-145)
[2021-01-21] MEDS: ALBUTEROL SULFATE (*SP) AEROSOL 1 PUFF 2 PUFF INHALATION (06:31)
[2021-01-21] MEDS: predniSONE 5 MG TABLET 15 MG PO (08:39)
[2021-01-21] MEDS: amLODIPine BESYLATE 5 MG TABLET PO (08:39)
[2021-01-21] MEDS: LIDOCAINE 5% PATCH 2 PATCH TRANSDERM (08:40)
[2021-01-21 14:47] LABS: D Dimer 0.72 ug/mL (<0.48)
[2021-01-21] MEDS: predniSONE 40 MG, predniSONE 10 MG 50 MG PO ×2 (16:22→21:11)
[2021-01-21] MEDS: ENOXAPARIN 80 MG/0.8 ML SYRINGE 65 MG SUB-Q (16:24)
--- NOTE | 2021-01-21 16:40 | PM.IMPN ---
Progress Note: A&P Assessment and Plan (1) Chronic pelvic pain syndrome in female: Code(s): R10.2 - Pelvic and perineal pain; G89.29 - Other chronic pain Status: Acute Assessment and Plan: 01/21/21 16:40 Patient is 80-year-old female presented emergency department with a complaint chronic weakness chronic pelvic pain for 5 over 5 years patient states see has seen several gynecology and physician including [facility] without any diagnosis recently patient was seen by what she described as rheumatology and patient was started on morphine, Vicodin and prednisone this regimen does help with her pain, is also seen by psychiatrist without any diagnosis or treatment, patient is quite depressed and crying, apparently her is very ill with cancer, and children are not much help in taking care of their parents, I did offer to transfer the patient to Psychiatry west at [facility] patient refused, patient also presented to emergency department in January of 2020 at that time patient refused workup and was discharged, plan is to provide PT OT for the patient will continue her pain management, will monitor overnight and possibly discharge the patient in the morning., 01/20 patient with chronic pelvic pain, we have started her on lower dose of [place] 5mg PO q6 PRN for 4-6 and [place] 10mg for pain above 7, held her morphine, today patient pain is somewhat controlled, and feel more anxious, will add valium 1mg BID as needed and two lidoderm patches, patient is seen by PT/OT, patient will benefit going to rehab before going home. 01/21/21 patient was admitted with chronic pelvic pain however early this morning rapid response was called this patient was short of breath and placed on 2 L of oxygen chest x-ray showed infiltrate, today patient is required 4 L of oxygen, suspect patient may have PE as patient D-dimer is elevated, will empirically start the patient on Lovenox, will do CTA of the chest however patient allergic to contrast will premedicated and do the test tomorrow, patient still continued to complain pelvic pain, and short of breath, denies any fever or chills will continue to monitor and further recommendation to follow (2) Depression: Code(s): F32.9 - Major depressive disorder, single episode, unspecified Status: Acute Assessment and Plan: Patient appears depressed has been seen by Psychiatry but not on any medication, did offer to transfer [facility] psychiatry west, patient refused Subjective Date/time seen: 01/21/21 16:40 Patient is 80-year-old female presented emergency department with a complaint chronic weakness chronic pelvic pain for 5 over 5 years patient states see has seen several gynecology and physician including [facility] without any diagnosis recently patient was seen by what she described as rheumatology and patient was started on morphine, Vicodin and prednisone this regimen does help with her pain, is also seen by psychiatrist without any diagnosis or treatment, patient is quite depressed and crying, apparently her is very ill with cancer, and children are not much help in taking care of their parents, I did offer to transfer the patient to Psychiatry west at [facility] patient refused, patient also presented to emergency department in January of 2020 at that time patient refused workup and was discharged, plan is to provide PT OT for the patient will continue her pain management, will monitor overnight and possibly discharge the patient in the morning., 01/20 patient with chronic pelvic pain, we have started her on lower dose of [place] 5mg PO q6 PRN for 4-6 and [place] 10mg for pain above 7, held her morphine, today patient pain is somewhat controlled, and feel more anxious, will add valium 1mg BID as needed and two lidoderm patches, patient is seen by PT/OT, patient will benefit going to rehab before going home. 01/21/21 p
[2021-01-22] MEDS: ENOXAPARIN 80 MG/0.8 ML SYRINGE 65 MG SUB-Q (02:57)
[2021-01-22] MEDS: diphenhydrAMINE HCl CAP 25 MG CAPSULE 50 MG PO (03:58)
[2021-01-22] MEDS: predniSONE 40 MG, predniSONE 10 MG 50 MG PO (03:58)
[2021-01-22 05:43] LABS: Hematocrit 35.7 % (37.0-47.0); Hemoglobin 11.5 g/dL (12.0-15.0); Mean Corpuscular HGB Conc 32.2 g/dl (32-36); Mean Corpuscular Hemoglobin 27.5 pg (26-34); Mean Corpuscular Volume 85.4 fl (80-100); Mean Platelet Volume 10.3 fl (7.4-10.4); Platelet Count Result 224 k/mm3 (150-375); Red Blood Count 4.18 M/mm3 (4.2-5.4); Red Cell Distribution Width 13.1 % (11.5-14.5)
[2021-01-22] MEDS: diazePAM (*CRX) 2 MG TABLET 1 MG PO ×2 (05:46→13:33)
[2021-01-22 06:00] VITALS: BP 168/64; PULSE 70; RESP 18; TEMP 36.4; O2SAT 92
[2021-01-22 06:04] LABS: Alanine Aminotransferase 29 U/L (4-35); Albumin Level 3.2 g/dL (3.5-5.1); Alkaline Phosphatase 72 U/L (38-126); Anion Gap 6 mmol/L (8-16); Aspartate Amino Transferase 70 U/L (14-36); Bilirubin,Total 0.2 mg/dL (0.2-1.3); Blood Urea Nitrogen 16 mg/dL (7-17); Calcium 8.3 mg/dL (8.4-10.2); Carbon Dioxide 27 mmol/L (22-30); Chloride 103 mmol/L (98-107); Estimated CRCL calculation 56 ml/min; Estimated Glomerular Filt Rate > 60; Glucose 121 mg/dL (65-105); Potassium 4.2 mmol/L (3.4-5.0); Sodium 136 mmol/L (137-145)
[2021-01-22 08:00] VITALS: O2SAT 93
--- NOTE | 2021-01-22 08:15 | PC.NURSE ---
CTA report read to Dr. Peter. Per Dr. Peter, we will swab patient for COVID and isolate. avionics shop supervisor notified.
[2021-01-22] MEDS: LIDOCAINE 5% PATCH 2 PATCH TRANSDERM (08:57)
[2021-01-22] MEDS: predniSONE 5 MG TABLET 15 MG PO (08:57)
[2021-01-22] MEDS: amLODIPine BESYLATE 5 MG TABLET PO (08:58)
--- NOTE | 2021-01-22 09:30 | PC.NURSE ---
Patient transferred to [address] [place] [address] room 307 at 0925.
[2021-01-22] MEDS: FUROSEMIDE INJ 40 MG/4 ML VIAL 20 MG IV PUSH ×2 (09:33→17:48)
[2021-01-22] MEDS: HYDROcodone/acetaminophen (*CRX) 10-325 MG TABLET 1 TAB BY MOUTH ×3 (09:38→23:38)
[2021-01-22 12:00] VITALS: BP 176/66; PULSE 80; RESP 20; TEMP 36.5; O2SAT 94
[2021-01-22] MEDS: ENOXAPARIN 40 MG/0.4 ML SYRINGE SUB-Q ×2 (13:19→20:28)
--- NOTE | 2021-01-22 15:17 | PCPTNOTE ---
Attempted to see pt for PT session at 1500. Pt was very tearful and declining participation. Pt was offered support and educated on benefits of therapy and importance of participation. Pt continued to decline PT on this date
[2021-01-22 16:00] VITALS: BP 137/91; PULSE 83; PULSE 93; RESP 20; TEMP 36.2; O2SAT 97
--- NOTE | 2021-01-22 18:03 | PM.IMPN ---
Progress Note: A&P Assessment and Plan (1) Chronic pelvic pain syndrome in female: Code(s): R10.2 - Pelvic and perineal pain; G89.29 - Other chronic pain Status: Acute Assessment and Plan: 01/22/21 18:03 Patient is 80-year-old female presented emergency department with a complaint chronic weakness chronic pelvic pain for 5 over 5 years patient states see has seen several gynecology and physician including [facility] at [facility] without any diagnosis recently patient was seen by what she described as rheumatology and patient was started on morphine, Vicodin and prednisone this regimen does help with her pain, is also seen by psychiatrist without any diagnosis or treatment, patient is quite depressed and crying, apparently her is very ill with cancer, and children are not much help in taking care of their parents, I did offer to transfer the patient to Psychiatry west at [facility] patient refused, patient also presented to emergency department in January of 2020 at that time patient refused workup and was discharged, plan is to provide PT OT for the patient will continue her pain management, will monitor overnight and possibly discharge the patient in the morning., 01/20 patient with chronic pelvic pain, we have started her on lower dose of [place] 5mg PO q6 PRN for 4-6 and [place] 10mg for pain above 7, held her morphine, today patient pain is somewhat controlled, and feel more anxious, will add valium 1mg BID as needed and two lidoderm patches, patient is seen by PT/OT, patient will benefit going to rehab before going home. 01/21/21 patient was admitted with chronic pelvic pain however early this morning rapid response was called this patient was short of breath and placed on 2 L of oxygen chest x-ray showed infiltrate, today patient is required 4 L of oxygen, suspect patient may have PE as patient D-dimer is elevated, will empirically start the patient on Lovenox, will do CTA of the chest however patient allergic to contrast will premedicated and do the test tomorrow, patient still continued to complain pelvic pain, and short of breath, denies any fever or chills will continue to monitor and further recommendation to follow. 01/22 patient with complaint of shortness of requiring 4 L of oxygen had a CTA of the chest showed pneumonia concerning for COVID-19, patient remains clinically stable on 4 L, will continue Cefepime and added doxycycline, will swap COVID-19 patient is currently isolated, will continue to monitor will follow-up on COVID-19 test and further recommendation to follow (2) Depression: Code(s): F32.9 - Major depressive disorder, single episode, unspecified Status: Acute Assessment and Plan: Patient appears depressed has been seen by Psychiatry but not on any medication, did offer to transfer [facility] psychiatry west, patient refused Subjective Date/time seen: 01/22/21 18:03 Patient is 80-year-old female presented emergency department with a complaint chronic weakness chronic pelvic pain for 5 over 5 years patient states see has seen several gynecology and physician including [facility] at [facility] without any diagnosis recently patient was seen by what she described as rheumatology and patient was started on morphine, Vicodin and prednisone this regimen does help with her pain, is also seen by psychiatrist without any diagnosis or treatment, patient is quite depressed and crying, apparently her is very ill with cancer, and children are not much help in taking care of their parents, I did offer to transfer the patient to Psychiatry west at [facility] patient refused, patient also presented to emergency department in January of 2020 at that time patient refused workup and was discharged, plan is to provide PT OT for the patient will continue her pain management, will monitor overnight and possibly discharge the patient in the morning., 01/20
[2021-01-22 20:00] VITALS: PULSE 88; O2SAT 94
[2021-01-22 20:07] LABS: SARS-CoV-2 RNA PCR Positive
[2021-01-22 21:45] VITALS: BP 178/63; PULSE 86; RESP 20; TEMP 36.7; O2SAT 96
[2021-01-22] MEDS: ONDANSETRON INJ 4 MG/2 ML VIAL IV PUSH (23:38)
[2021-01-23] VITALS (9 sets, daily range): BP systolic 140–173; BP diastolic 49–79; PULSE 82–116; RESP 20–24; TEMP 36.2–37.3; O2SAT 90–98
[2021-01-23] MEDS: diazePAM (*CRX) 2 MG TABLET 1 MG PO ×2 (05:19→23:46)
[2021-01-23 06:15] LABS: Hematocrit 35.1 % (37.0-47.0); Hemoglobin 11.8 g/dL (12.0-15.0); Mean Corpuscular HGB Conc 33.6 g/dl (32-36); Mean Corpuscular Hemoglobin 27.6 pg (26-34); Mean Platelet Volume 10.2 fl (7.4-10.4); Platelet Count Result 309 k/mm3 (150-375); Red Blood Count 4.28 M/mm3 (4.2-5.4); Red Cell Distribution Width 12.6 % (11.5-14.5); White Blood Count 7.7 K/mm3 (4.5-10.0)
[2021-01-23 06:21] LABS: Alanine Aminotransferase 28 U/L (4-35); Albumin Level 3.2 g/dL (3.5-5.1); Alkaline Phosphatase 70 U/L (38-126); Anion Gap 7 mmol/L (8-16); Aspartate Amino Transferase 60 U/L (14-36); Bilirubin,Total 0.3 mg/dL (0.2-1.3); Blood Urea Nitrogen 20 mg/dL (7-17); Calcium 8.4 mg/dL (8.4-10.2); Carbon Dioxide 29 mmol/L (22-30); Chloride 102 mmol/L (98-107); Estimated CRCL calculation 66 ml/min; Estimated Glomerular Filt Rate > 60; Glucose 136 mg/dL (65-105); Potassium 3.2 mmol/L (3.4-5.0); Sodium 138 mmol/L (137-145)
--- NOTE | 2021-01-23 07:35 | PC.NURSE ---
Patient had multiple complaints during the night. Stating that she was ether hot or cold, in pain, unable to sleep. Called for the bed stevenson very frequently and had output only about half the time she used it. Called for the bedpan in the AM for a BM, then she didn't have results. Then she was incontinent of stool x3 requiring multiple bedding changes. When given blankets on her request, she would pull them off shortly after. Pulled off her SCD's, and often called staff in w/o any clear demands.
[2021-01-23] MEDS: predniSONE 5 MG TABLET 15 MG PO (09:15)
[2021-01-23] MEDS: ENOXAPARIN 40 MG/0.4 ML SYRINGE SUB-Q ×2 (09:16→20:07)
[2021-01-23] MEDS: LIDOCAINE 5% PATCH 2 PATCH TRANSDERM (09:16)
[2021-01-23] MEDS: amLODIPine BESYLATE 5 MG TABLET PO (09:17)
[2021-01-23] MEDS: FUROSEMIDE INJ 40 MG/4 ML VIAL 20 MG IV PUSH ×2 (09:17→17:46)
[2021-01-23] MEDS: HYDROcodone/acetaminophen (*CRX) 10-325 MG TABLET 1 TAB BY MOUTH ×3 (09:17→21:07)
--- NOTE | 2021-01-23 13:15 | PM.IMPN ---
Progress Note: A&P Assessment and Plan (1) Chronic pelvic pain syndrome in female: Code(s): R10.2 - Pelvic and perineal pain; G89.29 - Other chronic pain Status: Acute Assessment and Plan: Patient is 80-year-old female presented emergency department with a complaint chronic weakness chronic pelvic pain for 5 over 5 years patient states see has seen several gynecology and physician including [facility] without any diagnosis recently patient was seen by what she described as rheumatology and patient was started on morphine, Vicodin and prednisone this regimen does help with her pain, is also seen by psychiatrist without any diagnosis or treatment, patient is quite depressed and crying, apparently her is very ill with cancer, and children are not much help in taking care of their parents, I did offer to transfer the patient to Psychiatry west at [facility] patient refused, patient also presented to emergency department in January of 2020 at that time patient refused workup and was discharged, plan is to provide PT OT for the patient will continue her pain management, will monitor overnight and possibly discharge the patient in the morning., 01/20 patient with chronic pelvic pain, we have started her on lower dose of [place] 5mg PO q6 PRN for 4-6 and [place] 10mg for pain above 7, held her morphine, today patient pain is somewhat controlled, and feel more anxious, will add valium 1mg BID as needed and two lidoderm patches, patient is seen by PT/OT, patient will benefit going to rehab before going home. 01/21/21 patient was admitted with chronic pelvic pain however early this morning rapid response was called this patient was short of breath and placed on 2 L of oxygen chest x-ray showed infiltrate, today patient is required 4 L of oxygen, suspect patient may have PE as patient D-dimer is elevated, will empirically start the patient on Lovenox, will do CTA of the chest however patient allergic to contrast will premedicated and do the test tomorrow, patient still continued to complain pelvic pain, and short of breath, denies any fever or chills will continue to monitor and further recommendation to follow. 01/22 patient with complaint of shortness of requiring 4 L of oxygen had a CTA of the chest showed pneumonia concerning for COVID-19, patient remains clinically stable on 4 L, will continue Cefepime and added doxycycline, will swap COVID-19 patient is currently isolated, will continue to monitor will follow-up on COVID-19 test and further recommendation to follow 01/23 pt has tested positive for COVID-19 viral PNA ldh , esr, crp, ddimer dexamthasone 6mh PO QD x 10days Doxycycline changed to azithromycin for anti-inflammatory properties Vit C/D zn++ supplemental O2 c/s pulmonology Subjective Date/time seen: 01/23/21 13:15 Patient found sitting up in her bed with the oxygen on her forehead. She is advised that she likely has COVID. Patient states she did not want a Coronavirus vaccine because she was scared it would hurt her. Patient educated to wear oxygen and educated on proning, she declines to do both. Exam Narrative: Exam Narrative: GEN: comfortable, NAD, appears older than chronological age HEENT: eyes are clear and none icteric, EOMI, poor dentition LUNGS: Respiratory efforts are normal, no use accessory muscle Lower extremities: no edema SKIN: nonjaundiced Neuro: grossly intact patient appears depressed and crying. Objective Data Vital Signs Vital Signs: Vital Signs - 24 hr 01/22/21 16:00 01/22/21 20:00 01/22/21 21:45 Temperature 97.1 F L 98.1 F Pulse Rate 93 88 86 Respiratory Rate 20 20 Blood Pressure 137/91 H 178/63 H Pulse Oximetry 97 94 96 01/23/21 00:00 01/23/21 04:00 01/23/21 08:00 Temperature 98.2 F 99.2 F 97.2 F L Pulse Rate 116 H 116 H 104 H Respiratory Rate 20 20 22 H Blood Pressure 171/60 H 173/69 H 145/49 H Pulse Oximetry 96 93 98 01/23/21 09:2
[2021-01-23 17:17] LABS: Alanine Aminotransferase 29 U/L (4-35); Estimated CRCL calculation 56 ml/min; Estimated Glomerular Filt Rate > 60
[2021-01-23 17:20] LABS: Prothrombin Time 13.7 Seconds (11.1-14.7)
[2021-01-23 17:21] LABS: CRP 2.9 mg/dL (<1.0); Lactate Dehydrogenase 1433 U/L (313-618)
[2021-01-23 17:23] LABS: D Dimer 0.56 ug/mL (<0.48)
[2021-01-23] MEDS: REMDESIVIR 200 MG/NS 250 ML 200 MG/250 ML BAG 250 MG IVPB (17:46)
[2021-01-23] MEDS: ZINC SULFATE 220 MG CAPSULE PO (17:46)
[2021-01-23] MEDS: ASCORBIC ACID 500 MG TABLET PO (17:46)
[2021-01-23 18:06] LABS: Erythrocyte Sedimentation Rate 62 mm/hr (0-20)
[2021-01-24] VITALS (9 sets, daily range): BP systolic 123–155; BP diastolic 52–95; PULSE 68–121; RESP 20–26; TEMP 36.3–36.9; O2SAT 91–97
[2021-01-24] MEDS: HYDROcodone/acetaminophen (*CRX) 10-325 MG TABLET 1 TAB BY MOUTH ×3 (05:23→20:08)
[2021-01-24 06:35] LABS: INR 1.1; Prothrombin Time 14.7 Seconds (11.1-14.7)
[2021-01-24 06:37] LABS: D Dimer 0.77 ug/mL (<0.48)
[2021-01-24 06:44] LABS: Anion Gap 7 mmol/L (8-16); Blood Urea Nitrogen 24 mg/dL (7-17); Calcium 8.3 mg/dL (8.4-10.2); Carbon Dioxide 30 mmol/L (22-30); Chloride 100 mmol/L (98-107); Estimated CRCL calculation 56 ml/min; Estimated Glomerular Filt Rate > 60; Glucose 140 mg/dL (65-105); Magnesium 1.9 mg/dL (1.6-2.3); Potassium 2.8 mmol/L (3.4-5.0); Sodium 137 mmol/L (137-145)
[2021-01-24 06:57] LABS: Alanine Aminotransferase 25 U/L (4-35); Estimated CRCL calculation 56 ml/min; Estimated Glomerular Filt Rate > 60
[2021-01-24] MEDS: POTASSIUM CHLORIDE 20 MEQ TABLET 40 MEQ PO ×2 (07:02→10:41)
[2021-01-24 07:18] LABS: CRP 2.7 mg/dL (<1.0)
[2021-01-24] MEDS: ZINC SULFATE 220 MG CAPSULE PO ×2 (08:46→17:30)
[2021-01-24] MEDS: ENOXAPARIN 40 MG/0.4 ML SYRINGE SUB-Q ×2 (08:46→20:09)
[2021-01-24] MEDS: FUROSEMIDE INJ 40 MG/4 ML VIAL 20 MG IV PUSH (08:46)
[2021-01-24] MEDS: predniSONE 5 MG TABLET 15 MG PO (08:46)
[2021-01-24] MEDS: amLODIPine BESYLATE 5 MG TABLET PO (08:47)
[2021-01-24] MEDS: LIDOCAINE 5% PATCH 2 PATCH TRANSDERM (08:47)
[2021-01-24] MEDS: CHOLECALCIFEROL 1,000 UNITS TABLET 2000 UNITS PO (08:47)
[2021-01-24] MEDS: ASCORBIC ACID 500 MG TABLET PO ×3 (08:48→17:29)
[2021-01-24] MEDS: REMDESIVIR 100 MG/NS 250 ML 100 MG/250 ML BAG 250 MG IVPB (10:41)
[2021-01-24] MEDS: diazePAM (*CRX) 2 MG TABLET 1 MG PO (10:42)
--- NOTE | 2021-01-24 10:54 | PCNFU ---
Nutrition Follow-Up Complete: Inadequate Oral as related to Nausea as evidenced by poor po intake reported Goal: Adequate Intake of at least 75% of meals/supplements Patient has limited progress towards goal. We will continue current goal. Pt current nutrition is Heart Healthy with Ensure Compact BID. Last recorded weight is 64.2 kg,no new weight to report. Bowel Motility:+BM reported 5/20-liquid stools. Labs Reviewed:Glu 140,BUN 24,Cr 0.6,K 2.8 Meds Noted:Prednisone, Lasix,Zinc,Vit D, Remdesivir, KCL,Zithromax,[place], Vit C Additional Notes: Nutrition follow up. Spoke with nursing today due to COVID precautions. Patient refusing breakfast today. She is currently on 3 liters of O2. Anxious. Diet supplements are being provided. PO intake encouraged. IF intake does not improve would recommend liberalizing diet to regular. Monitoring: RD will monitor every 5 days.
--- NOTE | 2021-01-24 12:43 | PM.CNPUL ---
Assessment and Plan Assessment and plan (1) Pneumonia due to COVID-19 virus: Code(s): U07.1 - COVID-19; J12.82 - Pneumonia due to coronavirus disease 2019 Status: Acute Assessment and Plan: Symptoms appear to be mild but CT scan findings of bilateral pneumonia are significant. She is certainly at risk for deterioration and I agree with the current regimen of systemic steroids and Remedisivir. I would continue this treatment for a total of 10 days. She does not need any antibiotics and they would not be helpful in this case. I will discontinue all antibiotics. Continue meaning oxygenation 92-96%. Continue DVT prophylaxis and recommend PT OT. (2) Acute hypoxemic respiratory failure: Code(s): J96.01 - Acute respiratory failure with hypoxia Status: Acute History of Present Illness History of Present Illness Consult date: 01/24/21 Chief complaint: Failure to thrive/nausea/diarrhea/generalized weak Narrative: This is a 80-year-old female who was admitted on with weakness. Chest x-ray showed minimal bilateral peripheral infiltrates and she tested positive for COVID-19 on 01/22/2021. She became minimally hypoxic requiring 2-3 L of oxygen and was started on dexamethasone as well as remdesivir. she is a poor historian and is unable to tell me when exactly her symptoms started. She appears very anxious and claims that she is short of breath but is able to complete in full sentences and when examined she appears not to be short of breath. Review of Systems Review of Systems: All systems reviewed & are unremarkable except as noted in HPI and below PMFSH Past Medical History Medical History Acid reflux Hypertension Indigestion Surgical History Surgical History Hx of gastric bypass Social History Social History Smoking status: Never smoker Smoking end date: 09/07/1966 Alcohol intake: never Substance use type: marijuana Gender identity (if verbalized by the patient): Female Spiritual care concerns: No Meds Home Medications and Allergies Home Medications Medication Instructions Recorded Confirmed Type hydrocodone-acetaminophen [[place]] 1 tablet Q8H PRN 01/19/21 01/19/21 History morphine 15 mg PO Q12H PRN 01/19/21 01/19/21 History prednisone 5 mg PO DAILY 01/19/21 01/19/21 History Allergies Allergy/AdvReac Type Severity Reaction Status Date / Time aspirin Allergy Unknown Unknown Verified 01/19/21 15:51 ioversol Allergy Unknown Unknown Verified 01/19/21 15:51 Sulfa (Sulfonamide Allergy Unknown Unknown Verified 01/19/21 15:51 Antibiotics) Vital Signs Vital Signs - 24 hr 01/23/21 16:00 01/23/21 20:00 01/23/21 21:01 Temperature 36.7 C 36.3 C L Pulse Rate 87 116 H 94 Respiratory Rate 22 H 20 Blood Pressure 140/56 L 156/78 H Pulse Oximetry 95 93 97 01/23/21 23:05 01/24/21 00:00 01/24/21 04:00 Temperature 36.9 C Pulse Rate 76 76 Respiratory Rate 20 Blood Pressure 123/52 L Pulse Oximetry 90 96 01/24/21 06:00 01/24/21 08:00 01/24/21 10:27 Temperature 36.3 C L 36.7 C Pulse Rate 94 80 Respiratory Rate 22 H 20 Blood Pressure 155/95 H 140/62 Pulse Oximetry 92 93 91 01/24/21 12:00 Temperature 36.6 C Pulse Rate 104 H Respiratory Rate 24 H Blood Pressure 146/56 H Pulse Oximetry 97 Exam Const: General: cooperative, alert, awake, Physically active and anxious Nutritional Appearance: average body habitus Orientation/consciousness: oriented to person, oriented to place, oriented to time and patient oriented x3 HENMT: Head: normal to inspection and normocephalic Eyes: General: appearance normal, both eyes and all related structures Neck: Neck: normal visual inspection and trachea midline Resp: Effort & Inspection: normal respiratory effort and able to spea
--- NOTE | 2021-01-24 15:39 | PCPTNOTE ---
The patient treatment was not able to be completed today. Will plan to continue treatment per plan of care.
--- NOTE | 2021-01-24 18:24 | PM.IMPN ---
Progress Note: A&P Assessment and Plan (1) Pneumonia due to COVID-19 virus: Code(s): U07.1 - COVID-19; J12.82 - Pneumonia due to coronavirus disease 2018 Status: Acute (2) Acute hypoxemic respiratory failure: Code(s): J96.01 - Acute respiratory failure with hypoxia Status: Acute (3) Chronic pelvic pain syndrome in female: Code(s): R10.2 - Pelvic and perineal pain; G89.29 - Other chronic pain Status: Acute (4) Dehydration: Code(s): E86.0 - Dehydration Status: Acute (5) Adult failure to thrive: Code(s): R62.7 - Adult failure to thrive Status: Acute (6) Depression: Code(s): F32.9 - Major depressive disorder, single episode, unspecified Status: Acute Additional Plan Patient is 80-year-old female presented emergency department with a complaint chronic weakness chronic pelvic pain for 5 over 5 years patient states see has seen several gynecology and physician including [facility] at [facility] without any diagnosis recently patient was seen by what she described as rheumatology and patient was started on morphine, Vicodin and prednisone this regimen does help with her pain, is also seen by psychiatrist without any diagnosis or treatment, patient is quite depressed and crying, apparently her is very ill with cancer, and children are not much help in taking care of their parents, I did offer to transfer the patient to Psychiatry west at [facility] patient refused, patient also presented to emergency department in January of 2020 at that time patient refused workup and was discharged, plan is to provide PT OT for the patient will continue her pain management, will monitor overnight and possibly discharge the patient in the morning., 01/20 patient with chronic pelvic pain, we have started her on lower dose of [place] 5mg PO q6 PRN for 4-6 and [place] 10mg for pain above 7, held her morphine, today patient pain is somewhat controlled, and feel more anxious, will add valium 1mg BID as needed and two lidoderm patches, patient is seen by PT/OT, patient will benefit going to rehab before going home. 01/21/21 patient was admitted with chronic pelvic pain however early this morning rapid response was called this patient was short of breath and placed on 2 L of oxygen chest x-ray showed infiltrate, today patient is required 4 L of oxygen, suspect patient may have PE as patient D-dimer is elevated, will empirically start the patient on Lovenox, will do CTA of the chest however patient allergic to contrast will premedicated and do the test tomorrow, patient still continued to complain pelvic pain, and short of breath, denies any fever or chills will continue to monitor and further recommendation to follow. 01/22 patient with complaint of shortness of requiring 4 L of oxygen had a CTA of the chest showed pneumonia concerning for COVID-19, patient remains clinically stable on 4 L, will continue Cefepime and added doxycycline, will swap COVID-19 patient is currently isolated, will continue to monitor will follow-up on COVID-19 test and further recommendation to follow 01/23 pt has tested positive for COVID-19 viral PNA ldh , esr, crp, ddimer dexamthasone 6mh PO QD x 10days Doxycycline changed to azithromycin for anti-inflammatory properties Vit C/D zn++ supplemental O2 c/s pulmonology 01/24/21 cont dexamethasone and remdesivir cont to follow inflam markers cont supplemental O2 (pt increased to 4L today) pulm following; recs appreciated cont supportive care K repleted poor PO intake, ensure to supplement pt declines proning foul smelling diarrhea today, abx discontinued, stool studies/cdiff ordered/ probiotic ordered Subjective Date/time seen: 01/24/21 18:24 complains of feeling afraid and alone. pt reassured we are here to support her. Exam Narrative: Exam Narrative: GEN: comfortable, NAD, appears older than chronological age HEENT: eyes are clear
[2021-01-25] VITALS (14 sets, daily range): BP systolic 136–162; BP diastolic 62–73; PULSE 78–113; RESP 16–22; TEMP 36.1–36.6; O2SAT 70–94
[2021-01-25 06:33] LABS: Basophils Percent Auto 0.2 % (0.2-1.2); Hematocrit 35.9 % (37.0-47.0); Hemoglobin 11.6 g/dL (12.0-15.0); Immature Granulocyte Absolute 0.08 K/mm3 (0.00-0.031); Immature Granulocyte Percent A 0.7 % (0-0.5); Lymphocytes Absolute Auto 0.42 K/mm3 (0.9-3.2); Lymphocytes Percent Auto 3.8 % (18.3-44.2); Mean Corpuscular HGB Conc 32.3 g/dl (32-36); Mean Corpuscular Hemoglobin 27.6 pg (26-34); Mean Corpuscular Volume 85.3 fl (80-100); Monocytes Absolute Auto 0.3 K/mm3 (0.1-0.6); Monocytes Percent Auto 2.3 % (2.6-8.5); Neutrophils Absolute Auto 10.3 K/mm3 (1.3-6.7); Platelet Count Result 325 k/mm3 (150-375); Red Blood Count 4.21 M/mm3 (4.2-5.4); Red Cell Distribution Width 13.1 % (11.5-14.5); White Blood Count 11.1 K/mm3 (4.5-10.0)
[2021-01-25 06:42] LABS: INR 1.3; Prothrombin Time 16.9 Seconds (11.1-14.7)
[2021-01-25 06:45] LABS: D Dimer 0.88 ug/mL (<0.48)
[2021-01-25 06:53] LABS: Alanine Aminotransferase 24 U/L (4-35); Anion Gap 9 mmol/L (8-16); Blood Urea Nitrogen 35 mg/dL (7-17); CRP 2.9 mg/dL (<1.0); Calcium 8.6 mg/dL (8.4-10.2); Carbon Dioxide 25 mmol/L (22-30); Chloride 102 mmol/L (98-107); Estimated CRCL calculation 66 ml/min; Estimated Glomerular Filt Rate > 60; Glucose 128 mg/dL (65-105); Magnesium 2.1 mg/dL (1.6-2.3); Potassium 3.5 mmol/L (3.4-5.0); Sodium 136 mmol/L (137-145)
[2021-01-25] MEDS: ONDANSETRON INJ 4 MG/2 ML VIAL IV PUSH ×2 (07:49→17:38)
[2021-01-25] MEDS: HYDROcodone/acetaminophen (*CRX) 10-325 MG TABLET 1 TAB BY MOUTH ×3 (07:51→23:03)
[2021-01-25] MEDS: FUROSEMIDE INJ 40 MG/4 ML VIAL 20 MG IV PUSH ×2 (07:52→17:25)
[2021-01-25] MEDS: DEXAMETHASONE 2 MG TABLET 6 MG PO (07:52)
[2021-01-25] MEDS: ENOXAPARIN 40 MG/0.4 ML SYRINGE SUB-Q ×2 (07:53→23:03)
[2021-01-25] MEDS: LIDOCAINE 5% PATCH 2 PATCH TRANSDERM (07:53)
[2021-01-25] MEDS: ZINC SULFATE 220 MG CAPSULE PO ×2 (07:53→17:25)
[2021-01-25] MEDS: SACCHAROMYCES BOULARDII 250 MG CAPSULE PO ×3 (07:54→17:25)
[2021-01-25] MEDS: amLODIPine BESYLATE 5 MG TABLET PO (07:54)
[2021-01-25] MEDS: CHOLECALCIFEROL 1,000 UNITS TABLET 2000 UNITS PO (07:54)
[2021-01-25] MEDS: ASCORBIC ACID 500 MG TABLET PO ×3 (07:54→17:25)
[2021-01-25] MEDS: REMDESIVIR 100 MG/NS 250 ML 100 MG/250 ML BAG 250 MG IVPB (10:35)
[2021-01-25] MEDS: LORazepam (*CRX) 1 MG TABLET PO ×2 (13:35→17:38)
--- NOTE | 2021-01-25 19:13 | PM.IMPN ---
Progress Note: A&P Assessment and Plan (1) Pneumonia due to COVID-19 virus: Code(s): U07.1 - COVID-19; J12.82 - Pneumonia due to coronavirus disease 2018 Status: Acute (2) Acute hypoxemic respiratory failure: Code(s): J96.01 - Acute respiratory failure with hypoxia Status: Acute (3) Chronic pelvic pain syndrome in female: Code(s): R10.2 - Pelvic and perineal pain; G89.29 - Other chronic pain Status: Acute (4) Dehydration: Code(s): E86.0 - Dehydration Status: Acute (5) Adult failure to thrive: Code(s): R62.7 - Adult failure to thrive Status: Acute (6) Depression: Code(s): F32.9 - Major depressive disorder, single episode, unspecified Status: Acute Additional Plan Patient is 80-year-old female presented emergency department with a complaint chronic weakness chronic pelvic pain for 5 over 5 years patient states see has seen several gynecology and physician including [facility] at [facility] without any diagnosis recently patient was seen by what she described as rheumatology and patient was started on morphine, Vicodin and prednisone this regimen does help with her pain, is also seen by psychiatrist without any diagnosis or treatment, patient is quite depressed and crying, apparently her is very ill with cancer, and children are not much help in taking care of their parents, I did offer to transfer the patient to Psychiatry west at [facility] patient refused, patient also presented to emergency department in January of 2020 at that time patient refused workup and was discharged, plan is to provide PT OT for the patient will continue her pain management, will monitor overnight and possibly discharge the patient in the morning., 01/20 patient with chronic pelvic pain, we have started her on lower dose of [place] 5mg PO q6 PRN for 4-6 and [place] 10mg for pain above 7, held her morphine, today patient pain is somewhat controlled, and feel more anxious, will add valium 1mg BID as needed and two lidoderm patches, patient is seen by PT/OT, patient will benefit going to rehab before going home. 01/21/21 patient was admitted with chronic pelvic pain however early this morning rapid response was called this patient was short of breath and placed on 2 L of oxygen chest x-ray showed infiltrate, today patient is required 4 L of oxygen, suspect patient may have PE as patient D-dimer is elevated, will empirically start the patient on Lovenox, will do CTA of the chest however patient allergic to contrast will premedicated and do the test tomorrow, patient still continued to complain pelvic pain, and short of breath, denies any fever or chills will continue to monitor and further recommendation to follow. 01/22 patient with complaint of shortness of requiring 4 L of oxygen had a CTA of the chest showed pneumonia concerning for COVID-19, patient remains clinically stable on 4 L, will continue Cefepime and added doxycycline, will swap COVID-19 patient is currently isolated, will continue to monitor will follow-up on COVID-19 test and further recommendation to follow 01/23 pt has tested positive for COVID-19 viral PNA ldh , esr, crp, ddimer dexamthasone 6mh PO QD x 10days Doxycycline changed to azithromycin for anti-inflammatory properties Vit C/D zn++ supplemental O2 c/s pulmonology 01/24/21 cont dexamethasone and remdesivir cont to follow inflam markers cont supplemental O2 (pt increased to 4L today) pulm following; recs appreciated cont supportive care K repleted poor PO intake, ensure to supplement pt declines proning foul smelling diarrhea today, abx discontinued, stool studies/cdiff ordered/ probiotic ordered 01/25/21 Oxygen requirements improving Patient remains on remdesivir and dexamethasone Inflammatory markers are stable Stool studies for C diff still pending collection Pulmonology following Subjective Date/time seen: 01/25/21 19:13 pt do
--- NOTE | 2021-01-25 22:39 | PC.NURSE ---
Notified Ivy Cheema of patient CTA result. New orders were given.
--- NOTE | 2021-01-25 23:21 | PC.NURSE ---
Notified Ivy Cheema about patient increase need for oxygen. Orders are to transfer. Constuleted Dr. Suggs. Patient will be going to ICU room 5. Patient has been notified of the move and no further questions at this time. Patient currently on 12L of high flow at 93%.
[2021-01-26] VITALS (22 sets, daily range): BP systolic 142–164; BP diastolic 63–83; PULSE 89–115; RESP 16–25; TEMP 36.3–36.6; O2SAT 46–100
--- NOTE | 2021-01-26 00:43 | PC.NURSE ---
Patient has been transferred and Daughter Olive was called. Dr. Suggs was also notified about the patient being transferred.
--- NOTE | 2021-01-26 00:47 | PC.NURSE ---
This patient, Grisel Weston, was received from [room 307 ] on 01/26/21 at 0038. Patient/family oriented to unit policies and routines
[2021-01-26] MEDS: LORazepam (*CRX) 1 MG TABLET PO ×5 (01:09→19:58)
[2021-01-26 05:10] LABS: Basophils Percent Auto 0.2 % (0.2-1.2); Hematocrit 33.1 % (37.0-47.0); Hemoglobin 11.1 g/dL (12.0-15.0); Immature Granulocyte Absolute 0.18 K/mm3 (0.00-0.031); Immature Granulocyte Percent A 1.2 % (0-0.5); Mean Corpuscular HGB Conc 33.5 g/dl (32-36); Mean Corpuscular Hemoglobin 27.3 pg (26-34); Mean Corpuscular Volume 81.3 fl (80-100); Mean Platelet Volume 10.2 fl (7.4-10.4); Monocytes Absolute Auto 0.4 K/mm3 (0.1-0.6); Monocytes Percent Auto 2.4 % (2.6-8.5); Neutrophils Percent Auto 92.2 % (45.5-73.1); Platelet Count Result 455 k/mm3 (150-375); Red Blood Count 4.07 M/mm3 (4.2-5.4); Red Cell Distribution Width 12.8 % (11.5-14.5); White Blood Count 15.1 K/mm3 (4.5-10.0)
[2021-01-26 05:22] LABS: INR 1.5; Prothrombin Time 18.8 Seconds (11.1-14.7)
[2021-01-26 05:24] LABS: D Dimer 0.59 ug/mL (<0.48)
[2021-01-26] MEDS: HYDROcodone/acetaminophen (*CRX) 10-325 MG TABLET 1 TAB BY MOUTH ×3 (05:31→19:58)
[2021-01-26 05:37] LABS: Alanine Aminotransferase 25 U/L (4-35); Anion Gap 3 mmol/L (8-16); Blood Urea Nitrogen 44 mg/dL (7-17); Calcium 8.4 mg/dL (8.4-10.2); Carbon Dioxide 31 mmol/L (22-30); Chloride 97 mmol/L (98-107); Estimated CRCL calculation 38 ml/min; Estimated Glomerular Filt Rate > 60; Glucose 143 mg/dL (65-105); Potassium 3.1 mmol/L (3.4-5.0); Sodium 131 mmol/L (137-145)
[2021-01-26 06:11] LABS: CRP 3.7 mg/dL (<1.0)
[2021-01-26 07:15] LABS: Platelet Estimate Adequate (Adequate); Poikilocytosis 1+ (NORMAL)
[2021-01-26 07:16] LABS: Anisocytosis 1+ (NORMAL)
--- NOTE | 2021-01-26 08:28 | WPDCN ---
Assessment and Plan Assessment and plan (1) Acute hypoxemic respiratory failure: Code(s): J96.01 - Acute respiratory failure with hypoxia Status: Acute Assessment and Plan: cont supportive care per pulm, stable on high flow therapy, will recheck CXR this am (2) Pneumonia due to COVID-19 virus: Code(s): U07.1 - COVID-19; J12.82 - Pneumonia due to coronavirus disease 2019 Status: Acute Assessment and Plan: see above (3) Pneumothorax: Code(s): J93.9 - Pneumothorax, unspecified Status: Acute Assessment and Plan: stable, recheck CXR, will hold off on chest tube for now unless larger on CXR HPI Data of Consult Date/Time: 01/26/21 08:28 Requesting Physician: Margarette Peter MD Primary Care Provider: Deandra PortilloMD Consult Narrative Narrative: Grisel Weston is a 80 year old female that initially presented to hospital for chronic pelvic pain. Over hospital course, pt developed worsening respiratory failure. Workup, including imaging, is significant for likely Covid related PNA and a small R PTX. Pt currently in ICU on high flow therapy at FiO2 60 and sating well. Pt denies any SOB at this time. Review of Systems Review of Systems: ROS unobtainable: Yes unobtainable due to medical condition PMFSH Past Medical History Medical History Acid reflux Hypertension Indigestion Surgical History Surgical History Hx of gastric bypass Social History Social History Smoking status: Never smoker Smoking end date: 09/07/1966 Alcohol intake: never Substance use type: marijuana Gender identity (if verbalized by the patient): Female Spiritual care concerns: No Meds Home Medications and Allergies Home Medications Medication Instructions Recorded Confirmed Type hydrocodone-acetaminophen [Juni[place]] 1 tablet Q8H PRN 01/19/21 01/19/21 History morphine 15 mg PO Q12H PRN 01/19/21 01/19/21 History prednisone 5 mg PO DAILY 01/19/21 01/19/21 History Allergies Allergy/AdvReac Type Severity Reaction Status Date / Time aspirin Allergy Unknown Unknown Verified 01/19/21 15:51 ioversol Allergy Unknown Unknown Verified 01/19/21 15:51 Sulfa (Sulfonamide Allergy Unknown Unknown Verified 01/19/21 15:51 Antibiotics) Vital Signs Vital Signs - 24 hr 01/25/21 09:18 01/25/21 12:00 01/25/21 15:00 Temperature 36.4 C Pulse Rate 113 H Respiratory Rate 18 Blood Pressure 144/63 H Pulse Oximetry 94 94 94 01/25/21 16:00 01/25/21 18:00 01/25/21 20:00 Temperature 36.6 C 36.2 C L Pulse Rate 104 H 107 H Respiratory Rate 18 18 Blood Pressure 145/66 H 136/62 Pulse Oximetry 94 92 92 01/25/21 21:00 01/25/21 21:24 01/25/21 22:50 Temperature Pulse Rate 107 H Respiratory Rate Blood Pressure Pulse Oximetry 93 93 93 01/25/21 23:15 01/26/21 00:42 01/26/21 00:45 Temperature 36.1 C L Pulse Rate 106 H 113 H Respiratory Rate 16 Blood Pressure 142/65 H Pulse Oximetry 90 95 01/26/21 00:48 01/26/21 00:50 01/26/21 02:00 Temperature 36.5 C Pulse Rate 105 H 113 H 92 Respiratory Rate 25 H 22 H Blood Pressure 151/77 H Pulse Oximetry 91 98 01/26/21 02:08 01/26/21 04:00 01/26/21 06:00 Temperature 36.4 C L Pulse Rate 91 100 89 Respiratory Rate 20 16 Blood Pressure 142/76 H Pulse Oximetry 95 94 01/26/21 06:57 01/26/21 07:00 Temperature Pulse Rate Respiratory Rate Blood Pressure Pulse Oximetry 88 L 88 L Exam Const: General: comfortable, no acute distress and ill appearing Nutritional Appearance: average body habitus Orientation/consciousness: patient oriented x3 Limitations: no limitations HENMT: Head: normal to inspection, normocephalic and atraumatic Ears: hearing grossly normal bilaterally General nose exam: Normal ex
[2021-01-26] MEDS: ENOXAPARIN 40 MG/0.4 ML SYRINGE SUB-Q ×2 (09:02→20:00)
[2021-01-26] MEDS: FAMOTIDINE 20 MG TABLET PO ×2 (09:02→16:18)
[2021-01-26] MEDS: ASCORBIC ACID 500 MG TABLET PO ×3 (09:03→16:18)
[2021-01-26] MEDS: SACCHAROMYCES BOULARDII 250 MG CAPSULE PO ×3 (09:03→16:19)
[2021-01-26] MEDS: amLODIPine BESYLATE 5 MG TABLET PO (09:04)
[2021-01-26] MEDS: DEXAMETHASONE 2 MG TABLET 6 MG PO (09:04)
[2021-01-26] MEDS: ZINC SULFATE 220 MG CAPSULE PO ×2 (09:04→16:19)
[2021-01-26] MEDS: CHOLECALCIFEROL 1,000 UNITS TABLET 2000 UNITS PO (09:05)
[2021-01-26] MEDS: FUROSEMIDE INJ 40 MG/4 ML VIAL 20 MG IV PUSH ×2 (09:05→16:18)
[2021-01-26] MEDS: REMDESIVIR 100 MG/NS 250 ML 100 MG/250 ML BAG 250 MG IVPB (11:17)
[2021-01-26] MEDS: LIDOCAINE 5% PATCH 2 PATCH TRANSDERM (11:19)
--- NOTE | 2021-01-26 13:46 | PCPTNOTE ---
Talked with nurse about working with Grisel for physical therapy. Nurse requested no PT today due to patient status. Will follow-up tomorrow.
--- NOTE | 2021-01-26 14:38 | PM.IMPN ---
Progress Note: A&P Assessment and Plan (1) Pneumonia due to COVID-19 virus: Code(s): U07.1 - COVID-19; J12.82 - Pneumonia due to coronavirus disease 2018 Status: Acute (2) Acute hypoxemic respiratory failure: Code(s): J96.01 - Acute respiratory failure with hypoxia Status: Acute (3) Chronic pelvic pain syndrome in female: Code(s): R10.2 - Pelvic and perineal pain; G89.29 - Other chronic pain Status: Acute (4) Dehydration: Code(s): E86.0 - Dehydration Status: Acute (5) Adult failure to thrive: Code(s): R62.7 - Adult failure to thrive Status: Acute (6) Depression: Code(s): F32.9 - Major depressive disorder, single episode, unspecified Status: Acute Additional Plan Patient is 80-year-old female presented emergency department with a complaint chronic weakness chronic pelvic pain for 5 over 5 years patient states see has seen several gynecology and physician including [facility] without any diagnosis recently patient was seen by what she described as rheumatology and patient was started on morphine, Vicodin and prednisone this regimen does help with her pain, is also seen by psychiatrist without any diagnosis or treatment, patient is quite depressed and crying, apparently her is very ill with cancer, and children are not much help in taking care of their parents, I did offer to transfer the patient to Psychiatry west at [facility] patient refused, patient also presented to emergency department in January of 2020 at that time patient refused workup and was discharged, plan is to provide PT OT for the patient will continue her pain management, will monitor overnight and possibly discharge the patient in the morning., 01/20 patient with chronic pelvic pain, we have started her on lower dose of [place] 5mg PO q6 PRN for 4-6 and [place] 10mg for pain above 7, held her morphine, today patient pain is somewhat controlled, and feel more anxious, will add valium 1mg BID as needed and two lidoderm patches, patient is seen by PT/OT, patient will benefit going to rehab before going home. 01/21/21 patient was admitted with chronic pelvic pain however early this morning rapid response was called this patient was short of breath and placed on 2 L of oxygen chest x-ray showed infiltrate, today patient is required 4 L of oxygen, suspect patient may have PE as patient D-dimer is elevated, will empirically start the patient on Lovenox, will do CTA of the chest however patient allergic to contrast will premedicated and do the test tomorrow, patient still continued to complain pelvic pain, and short of breath, denies any fever or chills will continue to monitor and further recommendation to follow. 01/22 patient with complaint of shortness of requiring 4 L of oxygen had a CTA of the chest showed pneumonia concerning for COVID-19, patient remains clinically stable on 4 L, will continue Cefepime and added doxycycline, will swap COVID-19 patient is currently isolated, will continue to monitor will follow-up on COVID-19 test and further recommendation to follow 01/23 pt has tested positive for COVID-19 viral PNA ldh , esr, crp, ddimer dexamthasone 6mh PO QD x 10days Doxycycline changed to azithromycin for anti-inflammatory properties Vit C/D zn++ supplemental O2 c/s pulmonology 01/24/21 cont dexamethasone and remdesivir cont to follow inflam markers cont supplemental O2 (pt increased to 4L today) pulm following; recs appreciated cont supportive care K repleted poor PO intake, ensure to supplement pt declines proning foul smelling diarrhea today, abx discontinued, stool studies/cdiff ordered/ probiotic ordered 01/25/21 Oxygen requirements improving Patient remains on remdesivir and dexamethasone Inflammatory markers are stable Stool studies for C diff still pending collection Pulmonology following 01/26/21 acutely worsening hypoxemia, CT chest shows
[2021-01-26] MEDS: POTASSIUM CHLORIDE 20 MEQ TABLET 40 MEQ PO (16:17)
[2021-01-26] MEDS: CALCIUM CARBONATE (TUMS) 500 MG (200 MG ELEMENTAL) PO (18:02)
[2021-01-26] MEDS: ONDANSETRON INJ 4 MG/2 ML VIAL IV PUSH (18:07)
--- NOTE | 2021-01-26 21:45 | PC.NURSE ---
Pt continues to remove oxygen and stating that she doesn't want to live like this. Discussed with pt her current treatment plan and the option to talk with hospice. Pt states I don't want to kill myself, but how long would it take for me to ? Discussed with Ivy Cheema NP. Hospice consult ordered.
[2021-01-27] VITALS (16 sets, daily range): BP systolic 109–135; BP diastolic 53–76; PULSE 80–113; RESP 16–26; TEMP 36.4–36.8; O2SAT 88–99
[2021-01-27] MEDS: LORazepam (*CRX) 1 MG TABLET PO ×4 (00:28→14:02)
[2021-01-27] MEDS: CALCIUM CARBONATE (TUMS) 500 MG (200 MG ELEMENTAL) PO (00:29)
[2021-01-27] MEDS: HYDROcodone/acetaminophen (*CRX) 10-325 MG TABLET 1 TAB BY MOUTH ×3 (04:49→19:38)
[2021-01-27 05:25] LABS: Basophils Percent Auto 0.1 % (0.2-1.2); Hematocrit 34.4 % (37.0-47.0); Hemoglobin 11.4 g/dL (12.0-15.0); Immature Granulocyte Absolute 0.37 K/mm3 (0.00-0.031); Immature Granulocyte Percent A 2.4 % (0-0.5); Lymphocytes Absolute Auto 0.37 K/mm3 (0.9-3.2); Lymphocytes Percent Auto 2.4 % (18.3-44.2); Mean Corpuscular HGB Conc 33.1 g/dl (32-36); Mean Corpuscular Hemoglobin 27.8 pg (26-34); Mean Corpuscular Volume 83.9 fl (80-100); Mean Platelet Volume 9.8 fl (7.4-10.4); Monocytes Absolute Auto 0.3 K/mm3 (0.1-0.6); Monocytes Percent Auto 2.1 % (2.6-8.5); Neutrophils Absolute Auto 14.5 K/mm3 (1.3-6.7); Nucleated Red Blood Cells Perc 0.1 % (0.0-0.2); Platelet Count Result 506 k/mm3 (150-375); White Blood Count 15.6 K/mm3 (4.5-10.0)
[2021-01-27 05:39] LABS: INR 1.5; Prothrombin Time 18.8 Seconds (11.1-14.7)
[2021-01-27 05:41] LABS: D Dimer 0.74 ug/mL (<0.48)
[2021-01-27 05:46] LABS: Alanine Aminotransferase 29 U/L (4-35); Anion Gap 6 mmol/L (8-16); Blood Urea Nitrogen 42 mg/dL (7-17); CRP 4.9 mg/dL (<1.0); Calcium 8.8 mg/dL (8.4-10.2); Carbon Dioxide 31 mmol/L (22-30); Chloride 100 mmol/L (98-107); Estimated CRCL calculation 43 ml/min; Estimated Glomerular Filt Rate > 60; Glucose 114 mg/dL (65-105); Magnesium 2.3 mg/dL (1.6-2.3); Potassium 3.9 mmol/L (3.4-5.0); Sodium 137 mmol/L (137-145)
[2021-01-27 06:53] LABS: Anisocytosis 1+ (NORMAL); Ovalocytes 1+ (NORMAL); Platelet Estimate Adequate (Adequate); Poikilocytosis 1+ (NORMAL)
[2021-01-27] MEDS: REMDESIVIR 100 MG/NS 250 ML 100 MG/250 ML BAG 250 MG IVPB (07:52)
[2021-01-27] MEDS: DEXAMETHASONE 2 MG TABLET 6 MG PO (09:31)
[2021-01-27] MEDS: FAMOTIDINE 20 MG TABLET PO ×2 (09:31→16:30)
[2021-01-27] MEDS: ZINC SULFATE 220 MG CAPSULE PO ×2 (09:31→16:30)
[2021-01-27] MEDS: SACCHAROMYCES BOULARDII 250 MG CAPSULE PO ×3 (09:31→16:30)
[2021-01-27] MEDS: ASCORBIC ACID 500 MG TABLET PO ×3 (09:31→16:30)
[2021-01-27] MEDS: CHOLECALCIFEROL 1,000 UNITS TABLET 2000 UNITS PO (09:31)
[2021-01-27] MEDS: FUROSEMIDE INJ 40 MG/4 ML VIAL 20 MG IV PUSH ×2 (09:32→16:30)
[2021-01-27] MEDS: amLODIPine BESYLATE 5 MG TABLET PO (09:32)
[2021-01-27] MEDS: ENOXAPARIN 40 MG/0.4 ML SYRINGE SUB-Q ×2 (09:32→20:53)
[2021-01-27] MEDS: LIDOCAINE 5% PATCH 2 PATCH TRANSDERM (09:33)
--- NOTE | 2021-01-27 10:17 | PCPTNOTE ---
Spoke with nurse regarding patient care. Nurse stated that she desaturated even when trying to talk with the doctor while on 90% air flow. At this time, patient is not medically appropriate for physical therapy treatments and will be discharged from our care at this time. Doctor was notified and if Grisel becomes medically appropriate for physical therapy, a new order will be placed.
--- NOTE | 2021-01-27 10:51 | PM.PNGS ---
Progress Note: A&P Assessment and Plan (1) Acute hypoxemic respiratory failure: Code(s): J96.01 - Acute respiratory failure with hypoxia Status: Acute Assessment and Plan: cont management per range conservationist, CXR reviewed this am (2) Pneumothorax: Code(s): J93.9 - Pneumothorax, unspecified Status: Acute Assessment and Plan: no change in possible tiny bilateral apical PTX, no indication for chest tube at this time Subjective Subjective Date/Time Seen: 01/27/21 10:51 no acute issues overnight, cont to have similar oxygen requirements as yesterday Review of Systems Review of Systems: All systems reviewed & are unremarkable except as noted in HPI and below Exam Const: General: cooperative, comfortable and ill appearing Orientation/consciousness: patient oriented x3 Chest: Chest palpation & inspection: normal inspection of the chest Resp: Effort & Inspection: normal respiratory effort Auscultation: diminished lung sounds Cardio: Rate: regular rate Rhythm: regular rhythm GI: Inspection: normal to inspection and non-distended GI Palp: Yes Soft to palpation and No Tenderness to palpation present (GI) Objective Data Vital Signs Vital Signs: Vital Signs - 24 hr 01/26/21 12:00 01/26/21 14:00 01/26/21 14:22 Temperature 36.5 C Pulse Rate 109 H 92 95 Respiratory Rate 22 H 23 H Blood Pressure 164/83 H Pulse Oximetry 100 92 01/26/21 16:00 01/26/21 18:00 01/26/21 20:00 Temperature 36.3 C L 36.6 C Pulse Rate 95 115 H 115 H Respiratory Rate 19 18 Blood Pressure 144/63 H 149/67 H Pulse Oximetry 99 94 01/26/21 20:46 01/26/21 21:30 01/26/21 22:00 Temperature Pulse Rate 114 H 92 Respiratory Rate 22 H Blood Pressure Pulse Oximetry 88 L 93 46 L 01/27/21 00:00 01/27/21 02:00 01/27/21 04:00 Temperature 36.4 C L 36.8 C Pulse Rate 85 90 80 Respiratory Rate 16 25 H Blood Pressure 122/53 L 109/59 L Pulse Oximetry 99 92 01/27/21 06:00 01/27/21 08:00 01/27/21 08:26 Temperature 36.6 C Pulse Rate 86 85 89 Respiratory Rate 18 20 Blood Pressure 129/69 Pulse Oximetry 98 98 01/27/21 10:00 Temperature Pulse Rate 97 Respiratory Rate Blood Pressure Pulse Oximetry Intake/Output Intake/Output: Intake & Output 01/24/21 01/25/21 01/26/21 01/27/21 23:59 23:59 23:59 23:59 Intake Total 2240 950 1370 150 Output Total 1325 725 Balance 2240 950 45 -575 Meds/Results Medications: Active Medications Generic Name Dose Route Start Last Admin Trade Name Freq PRN Reason Stop Dose Admin Hydrocodone Bitart/Acetaminophen 1 tab 01/19/21 18:25 Hydrocodone/Acetaminophen (*Crx) 5-325 Mg Tablet PO Q6H PRN Pain Rated 4-6 Hydrocodone Bitart/Acetaminophen 1 tab 01/19/21 18:30 01/27/21 04:49 Hydrocodone/Acetaminophen (*Crx) 10-325 Mg Tablet BY MOUTH 1 tab Q6H PRN Administration PAIN RATED 7-10 Albuterol 2 puff 01/21/21 06:02 01/21/21 06:31 Albuterol Sulfate (*Sp) Aerosol 1 Puff INHALATION 2 puff Q4HRT PRN Administration Shortness Of Breath Amlodipine Besylate 5 mg 01/20/21 14:45 01/27/21 09:32 Amlodipine Besylate 5 Mg Tablet PO 5 mg QAM JO Administration Ascorbic Acid 500 mg 01/23/21 17:00 01/27/21 09:31 Ascorbic Acid 500 Mg Tablet PO 500 mg TID JO Administration Calcium Carbonate 200 mg 01/26/21 01:56 01/27/21 00:29 Calcium Carbonate (Tums) 500 Mg (200 Mg Elemental) PO 200 mg Q6H PRN Administration Indigestion Dexamethasone 6 mg 01/25/21 08:00 01/27/21 09:31 Dexamethasone 2 Mg Tablet PO 02/03/21 08:01 6 mg DAILY@0800 JO Administration Enoxaparin Sodium 40 mg 01/22/21 12:00 01/27/21 09:32 Enoxaparin 40 Mg/0.4 Ml Syringe SUB-Q 40 mg Q12HR JO Administration Famotidine 20 mg 01/26/21 09:00 01/27/21 09:31 Famotidine 20 Mg Tablet PO 20 mg BID JO Administration Furosemide 20 mg 01/22/21 09:00 01/27/21 09:32 Furosemid
[2021-01-28] VITALS (16 sets, daily range): BP systolic 101–135; BP diastolic 57–68; PULSE 74–103; RESP 17–23; TEMP 35.7–36.6; O2SAT 74–100
[2021-01-28] MEDS: HYDROcodone/acetaminophen (*CRX) 10-325 MG TABLET 1 TAB BY MOUTH ×2 (01:59→08:48)
[2021-01-28] MEDS: LORazepam (*CRX) 1 MG TABLET PO ×2 (02:05→17:13)
[2021-01-28] MEDS: CALCIUM CARBONATE (TUMS) 500 MG (200 MG ELEMENTAL) PO (02:05)
[2021-01-28] MEDS: ASCORBIC ACID 500 MG TABLET PO ×3 (08:47→17:12)
[2021-01-28] MEDS: DEXAMETHASONE 2 MG TABLET 6 MG PO (08:47)
[2021-01-28] MEDS: FAMOTIDINE 20 MG TABLET PO ×2 (08:47→17:13)
[2021-01-28] MEDS: LIDOCAINE 5% PATCH 2 PATCH TRANSDERM (08:47)
[2021-01-28] MEDS: CHOLECALCIFEROL 1,000 UNITS TABLET 2000 UNITS PO (08:47)
[2021-01-28] MEDS: amLODIPine BESYLATE 5 MG TABLET PO (08:47)
[2021-01-28] MEDS: ENOXAPARIN 40 MG/0.4 ML SYRINGE SUB-Q ×2 (08:47→20:31)
[2021-01-28] MEDS: FUROSEMIDE INJ 40 MG/4 ML VIAL 20 MG IV PUSH ×2 (08:47→17:13)
[2021-01-28] MEDS: SACCHAROMYCES BOULARDII 250 MG CAPSULE PO ×3 (08:48→17:13)
[2021-01-28] MEDS: ZINC SULFATE 220 MG CAPSULE PO ×2 (08:48→17:13)
[2021-01-28] MEDS: CENTRAL LINE FLUSH 10 ML IV PUSH ×2 (13:01→20:32)
[2021-01-28 13:11] LABS: Basophils Percent Auto 0.2 % (0.2-1.2); Hematocrit 32.1 % (37.0-47.0); Hemoglobin 10.7 g/dL (12.0-15.0); Immature Granulocyte Absolute 0.36 K/mm3 (0.00-0.031); Immature Granulocyte Percent A 2.1 % (0-0.5); Lymphocytes Absolute Auto 0.25 K/mm3 (0.9-3.2); Lymphocytes Percent Auto 1.4 % (18.3-44.2); Mean Corpuscular HGB Conc 33.3 g/dl (32-36); Mean Corpuscular Hemoglobin 27.4 pg (26-34); Mean Corpuscular Volume 82.3 fl (80-100); Mean Platelet Volume 9.8 fl (7.4-10.4); Monocytes Absolute Auto 0.2 K/mm3 (0.1-0.6); Monocytes Percent Auto 1.3 % (2.6-8.5); Neutrophils Absolute Auto 16.6 K/mm3 (1.3-6.7); Nucleated Red Blood Cells Perc 0.1 % (0.0-0.2); Platelet Count Result 524 k/mm3 (150-375); White Blood Count 17.5 K/mm3 (4.5-10.0)
[2021-01-28 13:20] LABS: Anion Gap 1 mmol/L (8-16); Blood Urea Nitrogen 37 mg/dL (7-17); Calcium 8.5 mg/dL (8.4-10.2); Carbon Dioxide 34 mmol/L (22-30); Chloride 97 mmol/L (98-107); Estimated CRCL calculation 43 ml/min; Estimated Glomerular Filt Rate > 60; Glucose 172 mg/dL (65-105); Potassium 3.5 mmol/L (3.4-5.0); Sodium 132 mmol/L (137-145)
[2021-01-28] MEDS: HYDROcodone/acetaminophen (*CRX) 5-325 MG TABLET 1 TAB PO (14:06)
[2021-01-28] MEDS: SALINE 0.65% NAS SOLN 44 ML BTL 1 SPRAY NASAL (14:13)
--- NOTE | 2021-01-28 17:00 | P.PNIM_ITS ---
Progress Note: A&P Assessment and Plan (1) Pneumonia due to COVID-19 virus: Code(s): U07.1 - COVID-19; J12.82 - Pneumonia due to coronavirus disease 2018 Status: Acute (2) Acute hypoxemic respiratory failure: Code(s): J96.01 - Acute respiratory failure with hypoxia Status: Acute (3) Chronic pelvic pain syndrome in female: Code(s): R10.2 - Pelvic and perineal pain; G89.29 - Other chronic pain Status: Acute (4) Dehydration: Code(s): E86.0 - Dehydration Status: Acute (5) Adult failure to thrive: Code(s): R62.7 - Adult failure to thrive Status: Acute (6) Depression: Code(s): F32.9 - Major depressive disorder, single episode, unspecified Status: Acute Additional Plan Patient is 80-year-old female presented emergency department with a complaint chronic weakness chronic pelvic pain for 5 over 5 years patient states see has seen several gynecology and physician including [facility] without any diagnosis recently patient was seen by what she described as rheumatology and patient was started on morphine, Vicodin and prednisone this regimen does help with her pain, is also seen by psychiatrist without any diagnosis or treatment, patient is quite depressed and crying, apparently her is very ill with cancer, and children are not much help in taking care of their parents, I did offer to transfer the patient to Psychiatry west at [facility] patient refused, patient also presented to emergency department in January of 2020 at that time patient refused workup and was discharged, plan is to provide PT OT for the patient will continue her pain management, will monitor overnight and possibly discharge the patient in the morning., 01/20 patient with chronic pelvic pain, we have started her on lower dose of [place] 5mg PO q6 PRN for 4-6 and [place] 10mg for pain above 7, held her morphine, today patient pain is somewhat controlled, and feel more anxious, will add valium 1mg BID as needed and two lidoderm patches, patient is seen by PT/OT, patient will benefit going to rehab before going home. 01/21/21 patient was admitted with chronic pelvic pain however early this morning rapid response was called this patient was short of breath and placed on 2 L of oxygen chest x-ray showed infiltrate, today patient is required 4 L of oxygen, suspect patient may have PE as patient D-dimer is elevated, will empirically start the patient on Lovenox, will do CTA of the chest however patient allergic to contrast will premedicated and do the test tomorrow, patient still continued to complain pelvic pain, and short of breath, denies any fever or chills will continue to monitor and further recommendation to follow. 01/22 patient with complaint of shortness of requiring 4 L of oxygen had a CTA of the chest showed pneumonia concerning for COVID-19, patient remains clinically stable on 4 L, will continue Cefepime and added doxycycline, will swap COVID-19 patient is currently isolated, will continue to monitor will follow-up on COVID-19 test and further recommendation to follow 01/23 pt has tested positive for COVID-19 viral PNA ldh , esr, crp, ddimer dexamthasone 6mh PO QD x 10days Doxycycline changed to azithromycin for anti-inflammatory properties Vit C/D zn++ supplemental O2 c/s pulmonology 01/24/21 cont dexamethasone and remdesivir cont to follow inflam markers cont supplemental O2 (pt increased to 4L today) pulm following; recs appreciated cont supportive care K repleted poor PO intake, ensure to supplement pt declines proning foul smelling diarrhea today, abx discontinued, stoo
[2021-01-28] MEDS: REMDESIVIR 100 MG/NS 250 ML 100 MG/250 ML BAG 250 MG IVPB (18:24)
[2021-01-28 18:48] LABS: Alanine Aminotransferase 28 U/L (4-35); Estimated CRCL calculation 43 ml/min; Estimated Glomerular Filt Rate > 60
[2021-01-28 18:54] LABS: INR 1.6; Prothrombin Time 19.2 Seconds (11.1-14.7)
[2021-01-28 19:37] LABS: Procalcitonin 0.2 ng/mL
[2021-01-29] VITALS (18 sets, daily range): BP systolic 116–140; BP diastolic 65–75; PULSE 74–105; RESP 16–34; TEMP 36–36.5; O2SAT 90–100
--- NOTE | 2021-01-29 | ECHO_ITS ---
Patient Info Name: Grisel Weston Age: 80 years : 1940 Gender: Female Ht: 61 in Wt: 130 lbs BSA: 1.60 m2 HR: 106 bpm BP: 120 / 74 mmHg Heart Rhythm: Sinus Rhythm, Tachycardia Technical Quality: Good Exam Date: 01/29/2021 1:30 PM Exam Location: [facility] Pulmonary Patient Status: Inpatient Admit Date: 01/21/2021 Staff Ordering Physician: Mikey Angeles MD Enrobing Machine Corder: Grisel Borrero RDCS Attending Provider: Gavino Sarkar MD Referring Physician: Karthik ALCANTARA; Exam Type: CA echo doppler w bubble study Study Info Complete two-dimensional, color flow and Doppler transthoracic echocardiogram is performed with agitated saline. Contrast/Agitated Saline Contrast/Ag. Saline: Agitated Saline Amount: 20.00 ml Administered By: Faith Murray RN Payroll Benefits Clerk Services Summary 1. Normal left ventricular size with mild concentric hypertrophy. There is hyperdynamic left ventricular systolic function with an ejection fraction of 70-80%, with near cavity obliteration during systole. There was a mild elevation of late peaking LVOT velocity of 2.4 m/sec corresponding to a 24 mm intraventricular gradient, probably not very clinically significant. Grade 2 diastolic dysfunction is noted. 2. Patent foramen ovale (PFO) with a very small amount of right to left shunting by agitated saline Valsalva maneuver.. 3. No significant valve disease. 4. Normal sinus rhythm. Left Ventricle Left ventricular chamber dimension is normal. Left ventricular systolic function is hyperdynamic, estimated at >70%. There is mildly increased left ventricular wall thickness. Left ventricular septal wall motion is normal. The left ventricular diastolic function is grade II diastolic dysfunction. Right Ventricle Right ventricular chamber dimension is normal. Right ventricular systolic function is normal. Left Atria Left atrial chamber dimension is normal. Right Atria Right atrial chamber dimension is normal. Atrial Septum Patent foramen ovale (PFO) with a very small amount of right to left shunting by agitated saline Valsalva maneuver.. Aortic Valve The aortic valve is trileaflet. There is no aortic valve sclerosis. There is no aortic valve stenosis. There is no aortic valve regurgitation. Pulmonic Valve The pulmonic valve is normal. There is no pulmonic valve stenosis. There is no pulmonic regurgitation. Mitral Valve The mitral valve has normal leaflets. There is no mitral valve stenosis. There is no mitral valve regurgitation. Tricuspid Valve The tricuspid valve leaflets are normal. There is no significant tricuspid valve stenosis. There is no tricuspid valve regurgitation. No pulmonary hypertension, estimated pulmonary arterial systolic pressure is Empty. Pericardium/Pleural The pericardium appears normal. There is no pericardial effusion. Inferior Vena Cava Normal inferior vena cava with >50% collapse upon inspiration consistent with normal right atrial pressure, Empty. Aorta The aortic root size at the sinus of Valsalva is normal. The prox ascending aorta size is normal. Left Ventricular Outflow Tract Name Value Normal LVOT 2D LVOT Diamet
[2021-01-29] MEDS: HYDROcodone/acetaminophen (*CRX) 10-325 MG TABLET 1 TAB BY MOUTH ×4 (01:12→21:34)
--- NOTE | 2021-01-29 05:02 | PC.NURSE ---
c/o coccyx discomfort, upon assessment small slit noted - preventative mepilex
[2021-01-29] MEDS: CENTRAL LINE FLUSH 10 ML IV PUSH ×3 (05:18→19:53)
[2021-01-29 05:38] LABS: Basophils Percent Auto 0.1 % (0.2-1.2); Eosinophils Percent Auto 0.1 % (0-4.4); Hematocrit 32.1 % (37.0-47.0); Hemoglobin 10.7 g/dL (12.0-15.0); Immature Granulocyte Absolute 0.59 K/mm3 (0.00-0.031); Immature Granulocyte Percent A 4.4 % (0-0.5); Lymphocytes Absolute Auto 0.42 K/mm3 (0.9-3.2); Lymphocytes Percent Auto 3.1 % (18.3-44.2); Mean Corpuscular HGB Conc 33.3 g/dl (32-36); Mean Corpuscular Hemoglobin 27.9 pg (26-34); Mean Corpuscular Volume 83.8 fl (80-100); Mean Platelet Volume 9.8 fl (7.4-10.4); Monocytes Absolute Auto 0.3 K/mm3 (0.1-0.6); Monocytes Percent Auto 2.2 % (2.6-8.5); Neutrophils Percent Auto 90.1 % (45.5-73.1); Nucleated Red Blood Cells Perc 0.3 % (0.0-0.2); Platelet Count Result 554 k/mm3 (150-375); Red Blood Count 3.83 M/mm3 (4.2-5.4); White Blood Count 13.4 K/mm3 (4.5-10.0)
[2021-01-29 05:48] LABS: INR 1.7; Prothrombin Time 20.3 Seconds (11.1-14.7)
[2021-01-29 05:57] LABS: Alanine Aminotransferase 24 U/L (4-35); Anion Gap 4 mmol/L (8-16); Blood Urea Nitrogen 35 mg/dL (7-17); Calcium 8.2 mg/dL (8.4-10.2); Carbon Dioxide 35 mmol/L (22-30); Chloride 97 mmol/L (98-107); Estimated CRCL calculation 43 ml/min; Estimated Glomerular Filt Rate > 60; Glucose 125 mg/dL (65-105); Potassium 3.5 mmol/L (3.4-5.0); Sodium 136 mmol/L (137-145)
[2021-01-29 06:05] LABS: Anisocytosis 2+ (NORMAL); Ovalocytes 1+ (NORMAL); Platelet Estimate Adequate (Adequate); Poikilocytosis 1+ (NORMAL)
[2021-01-29] MEDS: DEXAMETHASONE SOD PHOS INJ 4 MG/ML VIAL 6 MG IV PUSH (07:59)
[2021-01-29] MEDS: ASCORBIC ACID 500 MG TABLET PO ×3 (07:59→16:19)
[2021-01-29] MEDS: CHOLECALCIFEROL 1,000 UNITS TABLET 2000 UNITS PO (07:59)
[2021-01-29] MEDS: amLODIPine BESYLATE 5 MG TABLET PO (07:59)
[2021-01-29] MEDS: FUROSEMIDE INJ 40 MG/4 ML VIAL IV PUSH ×2 (08:00→16:19)
[2021-01-29] MEDS: ENOXAPARIN 40 MG/0.4 ML SYRINGE SUB-Q (08:00)
[2021-01-29] MEDS: LIDOCAINE 5% PATCH 2 PATCH TRANSDERM (08:00)
[2021-01-29] MEDS: ZINC SULFATE 220 MG CAPSULE PO ×2 (08:00→16:19)
[2021-01-29] MEDS: SACCHAROMYCES BOULARDII 250 MG CAPSULE PO ×3 (08:00→16:19)
[2021-01-29] MEDS: FAMOTIDINE 20 MG TABLET PO ×2 (08:00→16:19)
[2021-01-29] MEDS: LORazepam (*CRX) 1 MG TABLET PO ×3 (08:01→19:52)
--- NOTE | 2021-01-29 08:12 | PM.IMPN ---
Progress Note: A&P Assessment and Plan (1) Pneumonia due to COVID-19 virus: Code(s): U07.1 - COVID-19; J12.82 - Pneumonia due to coronavirus disease 2019 Status: Acute Assessment and Plan: Will continue current treatment with oxygen and antiviral medications (2) Acute hypoxemic respiratory failure: Code(s): J96.01 - Acute respiratory failure with hypoxia Status: Acute Assessment and Plan: Consult noted will continue current plan of care and treatment monitor oxygen closely (3) Chronic pelvic pain syndrome in female: Code(s): R10.2 - Pelvic and perineal pain; G89.29 - Other chronic pain Status: Acute Assessment and Plan: Patient is 80-year-old female presented emergency department with a complaint chronic weakness chronic pelvic pain for 5 over 5 years patient states see has seen several gynecology and physician including [facility] without any diagnosis recently patient was seen by what she described as rheumatology and patient was started on morphine, Vicodin and prednisone this regimen does help with her pain, is also seen by psychiatrist without any diagnosis or treatment, patient is quite depressed and crying, apparently her is very ill with cancer, and children are not much help in taking care of their parents, I did offer to transfer the patient to Psychiatry west at [facility] patient refused, patient also presented to emergency department in January of 2020 at that time patient refused workup and was discharged, plan is to provide PT OT for the patient will continue her pain management, will monitor overnight and possibly discharge the patient in the morning., 01/20 patient with chronic pelvic pain, we have started her on lower dose of [place] 5mg PO q6 PRN for 4-6 and [place] 10mg for pain above 7, held her morphine, today patient pain is somewhat controlled, and feel more anxious, will add valium 1mg BID as needed and two lidoderm patches, patient is seen by PT/OT, patient will benefit going to rehab before going home. 01/21/21 patient was admitted with chronic pelvic pain however early this morning rapid response was called this patient was short of breath and placed on 2 L of oxygen chest x-ray showed infiltrate, today patient is required 4 L of oxygen, suspect patient may have PE as patient D-dimer is elevated, will empirically start the patient on Lovenox, will do CTA of the chest however patient allergic to contrast will premedicated and do the test tomorrow, patient still continued to complain pelvic pain, and short of breath, denies any fever or chills will continue to monitor and further recommendation to follow. 01/22 patient with complaint of shortness of requiring 4 L of oxygen had a CTA of the chest showed pneumonia concerning for COVID-19, patient remains clinically stable on 4 L, will continue Cefepime and added doxycycline, will swap COVID-19 patient is currently isolated, will continue to monitor will follow-up on COVID-19 test and further recommendation to follow 01/23 pt has tested positive for COVID-19 viral PNA ldh , esr, crp, ddimer dexamthasone 6mh PO QD x 10days Doxycycline changed to azithromycin for anti-inflammatory properties Vit C/D zn++ supplemental O2 c/s pulmonology Consult appreciated will continue current treatment. (4) Dehydration: Code(s): E86.0 - Dehydration Status: Acute Assessment and Plan: Stable at present (5) Adult failure to thrive: Code(s): R62.7 - Adult failure to thrive Status: Acute Assessment and Plan: Dietary consultation (6) Depression: Code(s): F32.9 - Major depressive disorder, single episode, unspecified Status: Acute Assessment and Plan: Stable at present counseling given. Additional Plan Patient is 80-year-old female presented emergency department with a complaint chronic weakness chronic pelvic pain for 5 over 5 years patient
[2021-01-29] MEDS: REMDESIVIR 100 MG/NS 250 ML 100 MG/250 ML BAG 250 MG IVPB (09:59)
--- NOTE | 2021-01-29 10:24 | PCDIET ---
Nutrition Follow-Up Complete: Nutrition Diagnosis: Inadequate oral related to nausea as evidenced by poor po intake reported. Nutrition Goal: Adequate intake of at least 75% of meals/supplements. Goal not met. Patient with poor intake. Per RN, only took soda and meliza crackers yesterday. Discussed with Dr. La. Recommended change to regular diet with addition of appetite stimulant. MD gave verbal order for diet change and clarified supplement order for Ensure Enlive (350kcal, 20g protein) TID with meals. Patient had not been taking supplements previously, but will continue to encourage. If PICC line is used for TPN, recommend Clinimix E 01/19 at goal of 60mL/hr with 250mL 20% lipids for 1522kcal and 72g protein per day. Though enteral feeding would be preferred method for nutrition, may not be feasible with high flow O2. Will follow closely and provide additional recommendations, as needed. Last recorded weight is 58.3 kg which is down from last review. -I/O. Bowel Motility: Last documented BM on 01/24/21. Labs Reviewed: Hgb (11.4), Hct (34.4), Glu (114), BUN (42) Meds Noted: [place], Vitamin D, Florastor, Albuterol, Decadron, Norvasc, Pepcid, Lasix, Remdesivir Additional Notes: Documented maceration to perineal area. Will continue to monitor with same goal. Nutrition Monitoring and Evaluation: RD will monitor every 3 days.
--- NOTE | 2021-01-29 11:26 | PM.PNPUL ---
Progress Note: A&P Assessment and Plan (1) Pneumonia due to COVID-19 virus: Code(s): U07.1 - COVID-19; J12.82 - Pneumonia due to coronavirus disease 2019 Status: Acute Assessment and Plan: 01/29 Patient tested positive for COVID-19 on 01/22 and started on remdesivir on 01/24, Dexamethasone started 01/25. Convalescent plasma ordered 01/29. Emperically started on cefepime 01/21 to 01/24 and azithromycin 01/23 to 01/24. - Remdesivir for total 10 days - Dexamethasone for total 10 days - Continuous pulse oximetry - Prone positioning if tolerated - Avoid any fluid overload, on lasix 40 IV BID. Check BNP in morning. - Obtain echo with bubble to assess LV function and exclude shunt. Goal saturations are 90-94% and will utilize high-flow oxygen andif fails BiPAP. Would avoid BiPAp if possible given pneumomediastinum and history of right pneumothorax. DNR so no mechanical ventilation. Discussed with Dr. La. Will follow with you. (2) Acute hypoxemic respiratory failure: Code(s): J96.01 - Acute respiratory failure with hypoxia Status: Acute Assessment and Plan: Patient with worsening hypoxic respiratory failure since admission. CTA negative for PE on 01/25. No evidence of bacterial pneumonia now. Echo to assess LV, valves and for shunt. Goal saturations 90-94%. I will check ABG to assess for hypercarbia. 01/19 to 01/21 on room air with sats 90-96 01/21 08:30 2 L NC with sats 91% 01/26 08:00 55 L with 60% FIO2 with sats 93% 01/27 08:00 40 L with 75% FIO2 with sats 94% 01/28 08:00 60 L with 80% FIO2 with sats 97% 01/29 08:00 60 L with 65% FIO2 with sats 91%. Subjective Date/time seen: 01/29/21 11:26 Interval history: 01/24 New consult This is a 80-year-old female who was admitted on with weakness. Chest x-ray showed minimal bilateral peripheral infiltrates and she tested positive for COVID-19 on 01/22/2021. She became minimally hypoxic requiring 2-3 L of oxygen and was started on dexamethasone as well as remdesivir. she is a poor historian and is unable to tell me when exactly her symptoms started. She appears very anxious and claims that she is short of breath but is able to complete in full sentences and when examined she appears not to be short of breath. Recommended to DC antibiotics and continue dexamethaasone and remdesivir for 10 days and signed off. Patient was noted to have a small right pneumothorax, pneumomediastinum no PE and worsening interstitial infiltrates on CT angiogram on 01/25. Pneumothorax and pneumomediastinum were treated conservatively. 01/29 Reconsulted for continued hypoxemia. patient tells me that she is not having any shortness of breath at rest, denies chest pain, denies fever, denies phlegm, and denies hemoptysis. Patient does states she has a dry cough. currently on high-flow nasal cannula 60 L, 65% with saturations 93%. chest x-ray today shows stable diffuse lung disease small amount of residual pneumomediastinum and soft tissue gas in the right axilla with no pneumothorax. Patient does have anxiety attacks requiring p.r.n. Ativan at times as she is pulling off her oxygen. Convalescent plasma and echo with bubble study have been ordered Review of Systems Review of Systems: All systems reviewed & are unremarkable except as noted in HPI and below Eyes: Eyes: Reports no additional eye complaints ENT: Reports system reviewed and no additional complaints, except as documented and Reports sinus pressure Cardiovascular: Cardiovascular: Reports no additional cardiovascular complaints Respiratory: Respiratory: Reports no additional respiratory complaints Gastrointestinal: Gastrointestinal: Reports no additional gastrointestinal complaints Musculoskeletal: Musculoskeletal: Reports no additional musculoskeletal complaints Integumentary/Breasts: Skin/Breast: Reports system reviewed and no additional complaints, except as docu Neurologic: Reports system reviewed and no add
[2021-01-29 12:55] LABS: Alveolar/Arterial O2 Gradient 379.4 mmHg; Base Excess ABG 7.5 mEq/l (+/-2.0); Fractional Inspired Oxygen 66 %; Oxygen Content ABG 14.8 %vol (16.0-22.0); Oxygen Saturation ABG 91.7 % (95.0-100.0); Oxyhemoglobin 87.8 % THb (90.0-100.0); PCO2 ABG 34.9 mmHg (35.0-45.0); PO2 ABG 53.3 mmHg (80.0-100.0); PO2 FiO2 Ratio Arterial Blood 0.81 %
[2021-01-29 12:56] LABS: Device HIGH FLOW THERAPY; Modified Allen's Test Pass; Site Drawn RIGHT RADIAL; pH ABG 7.552 (7.350-7.450)
--- NOTE | 2021-01-29 21:45 | PC.NURSE ---
Patient extremely tearful and anxious. Patient comforted by having hand held and talked to. States she is just so anxious right now. Ivy Cheema [employer] notified, order for 1 time IV ativan given.
[2021-01-29] MEDS: LORazepam INJ (*CRX) 2 MG/ML VIAL 1 MG IV PUSH (21:57)
[2021-01-30] VITALS (17 sets, daily range): BP systolic 98–135; BP diastolic 61–77; PULSE 7–111; RESP 16–23; TEMP 36.1–36.9; O2SAT 90–100
[2021-01-30] MEDS: LORazepam (*CRX) 1 MG TABLET PO ×4 (02:21→20:34)
[2021-01-30] MEDS: CENTRAL LINE FLUSH 10 ML IV PUSH ×3 (04:41→20:56)
[2021-01-30] MEDS: HYDROcodone/acetaminophen (*CRX) 10-325 MG TABLET 1 TAB BY MOUTH ×3 (04:41→21:35)
[2021-01-30 05:18] LABS: Hematocrit 31.9 % (37.0-47.0); Hemoglobin 10.6 g/dL (12.0-15.0); Mean Corpuscular HGB Conc 33.2 g/dl (32-36); Mean Corpuscular Hemoglobin 27.6 pg (26-34); Mean Corpuscular Volume 83.1 fl (80-100); Mean Platelet Volume 9.5 fl (7.4-10.4); Platelet Count Result 528 k/mm3 (150-375); Red Blood Count 3.84 M/mm3 (4.2-5.4); Red Cell Distribution Width 13.1 % (11.5-14.5); White Blood Count 16.3 K/mm3 (4.5-10.0)
[2021-01-30 05:28] LABS: INR 1.5; Prothrombin Time 18.5 Seconds (11.1-14.7)
[2021-01-30 05:31] LABS: Alanine Aminotransferase 22 U/L (4-35); Albumin Level 3.2 g/dL (3.5-5.1); Alkaline Phosphatase 83 U/L (38-126); Anion Gap 6 mmol/L (8-16); Aspartate Amino Transferase 30 U/L (14-36); Bilirubin,Total 0.5 mg/dL (0.2-1.3); Blood Urea Nitrogen 36 mg/dL (7-17); Calcium 8.8 mg/dL (8.4-10.2); Carbon Dioxide 37 mmol/L (22-30); Chloride 95 mmol/L (98-107); Estimated CRCL calculation 43 ml/min; Estimated Glomerular Filt Rate > 60; Glucose 114 mg/dL (65-105); Potassium 3.2 mmol/L (3.4-5.0); Sodium 138 mmol/L (137-145)
[2021-01-30 05:39] LABS: NT Pro B Type Natriuretic Pept 639 pg/mL (5-100)
[2021-01-30] MEDS: DEXAMETHASONE SOD PHOS INJ 4 MG/ML VIAL 6 MG IV PUSH (08:01)
[2021-01-30] MEDS: ZINC SULFATE 220 MG CAPSULE PO ×2 (08:01→16:31)
[2021-01-30] MEDS: FUROSEMIDE INJ 40 MG/4 ML VIAL IV PUSH ×2 (08:01→16:33)
[2021-01-30] MEDS: CHOLECALCIFEROL 1,000 UNITS TABLET 2000 UNITS PO (08:02)
[2021-01-30] MEDS: amLODIPine BESYLATE 5 MG TABLET PO (08:02)
[2021-01-30] MEDS: ASCORBIC ACID 500 MG TABLET PO ×3 (08:02→16:34)
[2021-01-30] MEDS: SACCHAROMYCES BOULARDII 250 MG CAPSULE PO ×3 (08:02→16:33)
[2021-01-30] MEDS: FAMOTIDINE 20 MG TABLET PO ×2 (08:02→16:35)
[2021-01-30] MEDS: ENOXAPARIN 40 MG/0.4 ML SYRINGE SUB-Q ×2 (08:02→20:56)
--- NOTE | 2021-01-30 10:13 | PM.PNPUL ---
Progress Note: A&P Assessment and Plan (1) Pneumonia due to COVID-19 virus: Code(s): U07.1 - COVID-19; J12.82 - Pneumonia due to coronavirus disease 2019 Status: Acute Assessment and Plan: 01/29 Patient tested positive for COVID-19 on 01/22 and started on remdesivir on 01/24, Dexamethasone started 01/25. Convalescent plasma given 01/29. Emperically started on cefepime 01/21 to 01/24 and azithromycin 01/23 to 01/24. - Remdesivir for total 10 days - Dexamethasone for total 10 days - Continuous pulse oximetry - Prone positioning if tolerated - Avoid any fluid overload, on lasix 40 IV BID. BNP 639 with echo showing EF 70-80%. - echo 01/29 with hyperdynamic LVEF with grade II diastolic dysfunction, PFO very small amount of right to left shunt,no valvular disease and no TR. . Goal saturations are 90-94% and will utilize high-flow oxygen and if fails BiPAP. Would avoid BiPAP if possible given pneumomediastinum and history of right pneumothorax. DNR so no mechanical ventilation. Will follow with you. (2) Acute hypoxemic respiratory failure: Code(s): J96.01 - Acute respiratory failure with hypoxia Status: Acute Assessment and Plan: Patient with worsening hypoxic respiratory failure since admission. CTA negative for PE on 01/25. No evidence of bacterial pneumonia now. Echo with normla LVEF and very small right to left shunt through PFO. I do not think that the PFO is main cause of hypoxemia and no additional testing required at this time. ABG to assess for hypercarbia on 01/29 7.55/35/53. Goal saturations 90-94%. 01/19 to 01/21 on room air with sats 90-96 01/21 08:30 2 L NC with sats 91% 01/26 08:00 55 L with 60% FIO2 with sats 93% 01/27 08:00 40 L with 75% FIO2 with sats 94% 01/28 08:00 60 L with 80% FIO2 with sats 97% 01/29 08:00 60 L with 65% FIO2 with sats 91% 01/30 09:00 45 L with 68% FIO2 with sats 90% Subjective Date/time seen: 01/30/21 10:13 Interval history: 01/24 New consult This is a 80-year-old female who was admitted on with weakness. Chest x-ray showed minimal bilateral peripheral infiltrates and she tested positive for COVID-19 on 01/22/2021. She became minimally hypoxic requiring 2-3 L of oxygen and was started on dexamethasone as well as remdesivir. she is a poor historian and is unable to tell me when exactly her symptoms started. She appears very anxious and claims that she is short of breath but is able to complete in full sentences and when examined she appears not to be short of breath. Recommended to DC antibiotics and continue dexamethaasone and remdesivir for 10 days and signed off. Patient was noted to have a small right pneumothorax, pneumomediastinum no PE and worsening interstitial infiltrates on CT angiogram on 01/25. Pneumothorax and pneumomediastinum were treated conservatively. 01/29 Reconsulted for continued hypoxemia. patient tells me that she is not having any shortness of breath at rest, denies chest pain, denies fever, denies phlegm, and denies hemoptysis. Patient does states she has a dry cough. currently on high-flow nasal cannula 60 L, 65% with saturations 93%. chest x-ray today shows stable diffuse lung disease small amount of residual pneumomediastinum and soft tissue gas in the right axilla with no pneumothorax. Patient does have anxiety attacks requiring p.r.n. Ativan at times as she is pulling off her oxygen. Convalescent plasma and echo with bubble study have been ordered. S/P convalescent plasma given later in day. ABG on 60L 65% was 7.55/35/53 without evidence of hypercarbia. 01/30 Remains on high flow 68% and 45L with saturations 90%. States about the same to minimally improved. Agitated at times requiring ativan. CXR worse FAY infiltrate otherwise unchanged. Data: Echo with bubble 01/29: Summary 1. Normal left ventricular size with mild concentric hypertrophy. There is hyperdynamic left ventricular systolic function with an ejection fraction of 70-80%, with n
[2021-01-30] MEDS: REMDESIVIR 100 MG/NS 250 ML 100 MG/250 ML BAG 250 MG IVPB (11:07)
--- NOTE | 2021-01-30 12:15 | PM.IMPN ---
Progress Note: A&P Assessment and Plan (1) Pneumonia due to COVID-19 virus: Code(s): U07.1 - COVID-19; J12.82 - Pneumonia due to coronavirus disease 2019 Status: Acute Assessment and Plan: Will continue current treatment with oxygen and antiviral medications Dexamethasone remdisever Total of 10 days (2) Acute hypoxemic respiratory failure: Code(s): J96.01 - Acute respiratory failure with hypoxia Status: Acute Assessment and Plan: Pulmonology recommendation appreciated most likely related to COVID-19 pneumonia will continue current plan of care and treatment monitor oxygen closely (3) Chronic pelvic pain syndrome in female: Code(s): R10.2 - Pelvic and perineal pain; G89.29 - Other chronic pain Status: Acute Assessment and Plan: Pain control (4) Dehydration: Code(s): E86.0 - Dehydration Status: Acute Assessment and Plan: Stable at present (5) Adult failure to thrive: Code(s): R62.7 - Adult failure to thrive Status: Acute Assessment and Plan: Dietary consultation (6) Depression: Code(s): F32.9 - Major depressive disorder, single episode, unspecified Status: Acute Assessment and Plan: Stable at present counseling given. Additional Plan Patient is code status is DNR. Monitor labs and x-ray. Subjective Date/time seen: 01/30/21 12:15 Interval history: 01/24 New consult This is a 80-year-old female who was admitted on with weakness. Chest x-ray showed minimal bilateral peripheral infiltrates and she tested positive for COVID-19 on 01/22/2021. She became minimally hypoxic requiring 2-3 L of oxygen and was started on dexamethasone as well as remdesivir. she is a poor historian and is unable to tell me when exactly her symptoms started. She appears very anxious and claims that she is short of breath but is able to complete in full sentences and when examined she appears not to be short of breath. continue dexamethaasone and remdesivir for 10 days Patient was noted to have a small right pneumothorax, pneumomediastinum no PE and worsening interstitial infiltrates on CT angiogram on 01/25. Pneumothorax and pneumomediastinum were treated conservatively. Echo with bubble 01/29: Summary 1. Normal left ventricular size with mild concentric hypertrophy. Diastolic dysfunction 2. Patent foramen ovale (PFO) CT a 1. Development of widespread pneumomediastinum tracking into the neck and bilateral axillae. 2. Small right pneumothorax. 3. No pulmonary embolus identified. 4. Interval worsening widespread groundglass opacities, consistent with pneumonia versus pulmonary edema. Patient still short of breath Patient feels weak Patient denies fever headache chest pain I am seeing the patient for pneumonia Exam Const: Other: Alert Chest bilateral crackle on high-flow oxygen Abdomen nontender nondistended CVS S1 + S2 Positive Lower extremity edema Objective Data Vital Signs Vital Signs: Vital Signs - 24 hr 01/29/21 14:00 01/29/21 16:00 01/29/21 16:27 Temperature 96.8 F L 96.8 F L Pulse Rate 98 101 H 100 Respiratory Rate 18 18 Blood Pressure 120/65 120/65 Pulse Oximetry 92 97 01/29/21 16:43 01/29/21 17:00 01/29/21 17:30 Temperature 97.0 F L 97.1 F L 97.1 F L Pulse Rate 96 100 100 Respiratory Rate 22 H 18 18 Blood Pressure 123/65 139/69 139/69 Pulse Oximetry 92 97 97 01/29/21 18:00 01/29/21 20:00 01/29/21 22:00 Temperature 97.0 F L Pulse Rate 100 103 H 81 Respiratory Rate 34 H 23 H Blood Pressure 128/75 Pulse Oximetry 93 100 01/29/21 23:50 01/30/21 00:00 01/30/21 02:00 Temperature 97.0 F L Pulse Rate 74 72 87 Respiratory Rate 16 16 Blood Pressure 99/68 L Pulse Oximetry 96 100 01/30/21 04:00 01/30/21 06:00 01/30/21 08:00 Temperature 97.2 F L 97.3 F L Pulse Rate 76 78 83 Respiratory Rate 19 19 Blood Pressure 109/64 135/71 Pulse Oximetry 97 98 0
[2021-01-31] VITALS (18 sets, daily range): BP systolic 95–150; BP diastolic 62–78; PULSE 77–120; RESP 16–24; TEMP 35.9–37.3; O2SAT 93–100
[2021-01-31] MEDS: HYDROcodone/acetaminophen (*CRX) 10-325 MG TABLET 1 TAB BY MOUTH ×2 (02:36→10:38)
[2021-01-31] MEDS: CENTRAL LINE FLUSH 10 ML IV PUSH ×3 (06:18→20:28)
[2021-01-31 06:52] LABS: Alanine Aminotransferase 21 U/L (4-35); Estimated CRCL calculation 43 ml/min; Estimated Glomerular Filt Rate > 60
[2021-01-31 06:57] LABS: INR 1.6; Prothrombin Time 19.7 Seconds (11.1-14.7)
[2021-01-31] MEDS: amLODIPine BESYLATE 5 MG TABLET PO (08:12)
[2021-01-31] MEDS: FAMOTIDINE 20 MG TABLET PO ×2 (08:12→16:31)
[2021-01-31] MEDS: ASCORBIC ACID 500 MG TABLET PO (08:12)
[2021-01-31] MEDS: DEXAMETHASONE SOD PHOS INJ 4 MG/ML VIAL 6 MG IV PUSH (08:12)
[2021-01-31] MEDS: CHOLECALCIFEROL 1,000 UNITS TABLET 2000 UNITS PO (08:12)
[2021-01-31 08:13] LABS: Anion Gap 7 mmol/L (8-16); Blood Urea Nitrogen 39 mg/dL (7-17); Calcium 8.9 mg/dL (8.4-10.2); Carbon Dioxide 37 mmol/L (22-30); Chloride 93 mmol/L (98-107); Estimated CRCL calculation 43 ml/min; Estimated Glomerular Filt Rate > 60; Glucose 129 mg/dL (65-105); Magnesium 2.3 mg/dL (1.6-2.3); Potassium 3.3 mmol/L (3.4-5.0); Sodium 137 mmol/L (137-145)
[2021-01-31] MEDS: ENOXAPARIN 40 MG/0.4 ML SYRINGE SUB-Q ×2 (08:13→20:28)
[2021-01-31] MEDS: FUROSEMIDE INJ 40 MG/4 ML VIAL IV PUSH ×2 (08:13→16:31)
[2021-01-31 08:35] LABS: Mean Corpuscular HGB Conc 33.3 g/dl (32-36); Mean Corpuscular Hemoglobin 27.6 pg (26-34); Mean Corpuscular Volume 82.9 fl (80-100); Mean Platelet Volume 9.5 fl (7.4-10.4); Platelet Count Result 581 k/mm3 (150-375); Red Blood Count 4.34 M/mm3 (4.2-5.4); Red Cell Distribution Width 13.2 % (11.5-14.5)
--- NOTE | 2021-01-31 09:23 | PM.PNPUL ---
Progress Note: A&P Assessment and Plan (1) Pneumonia due to COVID-19 virus: Code(s): U07.1 - COVID-19; J12.82 - Pneumonia due to coronavirus disease 2019 Status: Acute Assessment and Plan: 01/29 Patient tested positive for COVID-19 on 01/22 and started on remdesivir on 01/24, Dexamethasone started 01/25. Convalescent plasma given 01/29. Emperically started on cefepime 01/21 to 01/24 and azithromycin 01/23 to 01/24. Patient is DNR. - Remdesivir for total 10 days - Dexamethasone for total 10 days - Continuous pulse oximetry - Prone positioning if tolerated - Avoid any fluid overload, on lasix 40 IV BID. BNP 639 with echo showing EF 70-80%. 01/31 minus 490 overnight. - echo 01/29 with hyperdynamic LVEF with grade II diastolic dysfunction, PFO very small amount of right to left shunt,no valvular disease and no TR. Goal saturations are 90-94% and will utilize high-flow oxygen and if fails BiPAP. Would avoid BiPAP if possible given pneumomediastinum and history of right pneumothorax. DNR so no mechanical ventilation. 01/31 Day 8 dexamethasone (day 11 total steroids), day 9 of 10 remdesivir, convalescent plasma on 01/29 with essentially no improvement and remains on high flow oxygen. Would DC dexamethasone and remdesivir on 02/01. If she improves this will be a slow process. No additional recommendations at this time Discussed with Dr. Iraheta, will sign off, call with questions. (2) Acute hypoxemic respiratory failure: Code(s): J96.01 - Acute respiratory failure with hypoxia Status: Acute Assessment and Plan: Patient with worsening hypoxic respiratory failure since admission. CTA negative for PE on 01/25. No evidence of bacterial pneumonia now. Echo with normla LVEF and very small right to left shunt through PFO. I do not think that the PFO is main cause of hypoxemia and no additional testing required at this time. ABG to assess for hypercarbia on 01/29 7.55/35/53. Goal saturations 90-94%. 01/19 to 01/21 on room air with sats 90-96 01/21 08:30 2 L NC with sats 91% 01/26 08:00 55 L with 60% FIO2 with sats 93% 01/27 08:00 40 L with 75% FIO2 with sats 94% 01/28 08:00 60 L with 80% FIO2 with sats 97% 01/29 08:00 60 L with 65% FIO2 with sats 91% 01/30 09:00 45 L with 68% FIO2 with sats 90% 01/31 08:00 50 L with 88% FIO2 with sats 94% Subjective Date/time seen: 01/31/21 09:23 Interval history: 01/24 New consult This is a 80-year-old female who was admitted on with weakness. Chest x-ray showed minimal bilateral peripheral infiltrates and she tested positive for COVID-19 on 01/22/2021. She became minimally hypoxic requiring 2-3 L of oxygen and was started on dexamethasone as well as remdesivir. she is a poor historian and is unable to tell me when exactly her symptoms started. She appears very anxious and claims that she is short of breath but is able to complete in full sentences and when examined she appears not to be short of breath. Recommended to DC antibiotics and continue dexamethaasone and remdesivir for 10 days and signed off. Patient was noted to have a small right pneumothorax, pneumomediastinum no PE and worsening interstitial infiltrates on CT angiogram on 01/25. Pneumothorax and pneumomediastinum were treated conservatively. 01/29 Reconsulted for continued hypoxemia. Patient tells me that she is not having any shortness of breath at rest, denies chest pain, denies fever, denies phlegm, and denies hemoptysis. Patient does states she has a dry cough. currently on high-flow nasal cannula 60 L, 65% with saturations 93%. chest x-ray today shows stable diffuse lung disease small amount of residual pneumomediastinum and soft tissue gas in the right axilla with no pneumothorax. Patient does have anxiety attacks requiring p.r.n. Ativan at times as she is pulling off her oxygen. Convalescent plasma and echo with bubble study have been ordered. S/P convalescent plasma given later in day. ABG on 60L 65% was 7.55/35/53 wit
[2021-01-31] MEDS: REMDESIVIR 100 MG/NS 250 ML 100 MG/250 ML BAG 250 MG IVPB (10:39)
[2021-01-31] MEDS: LORazepam (*CRX) 1 MG TABLET PO ×2 (10:50→19:01)
--- NOTE | 2021-01-31 11:51 | PM.IMPN ---
Progress Note: A&P Assessment and Plan (1) Pneumonia due to COVID-19 virus: Code(s): U07.1 - COVID-19; J12.82 - Pneumonia due to coronavirus disease 2019 Status: Acute Assessment and Plan: Will continue current treatment with oxygen and antiviral medications Dexamethasone remdisever Total of 10 days Worsening (2) Acute hypoxemic respiratory failure: Code(s): J96.01 - Acute respiratory failure with hypoxia Status: Acute Assessment and Plan: Pulmonology recommendation appreciated most likely related to COVID-19 pneumonia will continue current plan of care and treatment monitor oxygen closely Probably complicated with ARDS Continue diuresis Added IV steroid Discussed with pulmonology concern for poor prognosis Will evaluate in the next 2-3 days regarding palliative care/hospice if no improvement (3) Chronic pelvic pain syndrome in female: Code(s): R10.2 - Pelvic and perineal pain; G89.29 - Other chronic pain Status: Acute Assessment and Plan: Pain control (4) Dehydration: Code(s): E86.0 - Dehydration Status: Acute Assessment and Plan: Stable at present (5) Adult failure to thrive: Code(s): R62.7 - Adult failure to thrive Status: Acute Assessment and Plan: Dietary consultation (6) Depression: Code(s): F32.9 - Major depressive disorder, single episode, unspecified Status: Acute Assessment and Plan: Stable at present counseling given. Additional Plan Patient is code status is DNR. Acute hypokalemia replace Subjective Date/time seen: 01/31/21 11:51 Interval history: 01/24 New consult This is a 80-year-old female who was admitted on with weakness. Chest x-ray showed minimal bilateral peripheral infiltrates and she tested positive for COVID-19 on 01/22/2021. She became minimally hypoxic requiring 2-3 L of oxygen and was started on dexamethasone as well as remdesivir. she is a poor historian and is unable to tell me when exactly her symptoms started. She appears very anxious and claims that she is short of breath but is able to complete in full sentences and when examined she appears not to be short of breath. continue dexamethaasone and remdesivir for 10 days Patient was noted to have a small right pneumothorax, pneumomediastinum no PE and worsening interstitial infiltrates on CT angiogram on 01/25. Pneumothorax and pneumomediastinum were treated conservatively. Echo with bubble 01/29: Summary 1. Normal left ventricular size with mild concentric hypertrophy. Diastolic dysfunction 2. Patent foramen ovale (PFO) CT a 1. Development of widespread pneumomediastinum tracking into the neck and bilateral axillae. 2. Small right pneumothorax. 3. No pulmonary embolus identified. 4. Interval worsening widespread groundglass opacities, consistent with pneumonia versus pulmonary edema. Patient still short of breath Condition worsening today Chest x-ray concern for ARDS pulmonary edema And IV steroid Continue IV Lasix Patient denies fever headache chest pain I am seeing the patient for pneumonia Exam Const: Other: Alert Chest bilateral crackle on high-flow oxygen Abdomen nontender nondistended CVS S1 + S2 Positive Lower extremity edema Objective Data Vital Signs Vital Signs: Vital Signs - 24 hr 01/30/21 12:00 01/30/21 14:00 01/30/21 16:00 Temperature 98.5 F 97.2 F L Pulse Rate 81 97 102 H Respiratory Rate 19 18 Blood Pressure 98/61 L 131/77 Pulse Oximetry 97 97 01/30/21 18:00 01/30/21 20:00 01/30/21 20:07 Temperature 97.8 F Pulse Rate 103 H 111 H 107 H Respiratory Rate 23 H 23 H Blood Pressure 124/70 Pulse Oximetry 95 94 01/30/21 22:46 01/31/21 00:00 01/31/21 01:49 Temperature 97.6 F Pulse Rate 105 H 87 93 Respiratory Rate 18 16 19 Blood Pressure 121/72 Pulse Oximetry 95 99 94 01/31/21 02:00 01/31/21 04:00 01/31/21 06:00 Temperature 97.6 F Pu
[2021-01-31] MEDS: POTASSIUM CHLORIDE 20 MEQ PACKET (FOR LIQUID) 40 MEQ PO (12:26)
[2021-01-31] MEDS: methylPREDNISolone SOD SUCC 125 MG VIAL 60 MG IV PUSH ×3 (12:26→23:24)
[2021-01-31] MEDS: SACCHAROMYCES BOULARDII 250 MG CAPSULE PO ×2 (12:26→16:31)
--- NOTE | 2021-01-31 13:31 | PCDIET ---
Nutrition Follow-Up Complete: Nutrition Diagnosis: Inadequate oral intake related to nausea as evidenced by poor po intake reported. Nutrition Goal: Intake of at least 75% of meals/supplements Goal not met. Patient continues to eat poorly, and RN reports decrease in oral fluid intake over the past few days. While oral/enteral feedings would be preferred, patient on high flow oxygen which may prevent tube placement. Therefore, continue to recommend Clinimix E 01/19 at 60mL/hr with 250mL 20% lipids daily. Doubt appetite stimulant would be of benefit at current time. Last recorded weight is 54.5 kg which is down from last review. -I/O. Bowel Motility: Last documented BM on 01/24/21. Recommend adding medication to promote BM, if medically appropriate. Labs Reviewed: WBC (18.0), Hct (36.0), Glu (129), BUN (39), K (3.3) Meds Noted: [place], Pepcid, Remdesivir, Norvasc, Lasix, Florastor, Vitamin C, Decadron, Vitamin D, Zinc Sulfate Additional Notes: No documented pressure sores. Will continue to monitor with new goal: patient to meet estimated nutritional needs. Nutrition Monitoring and Evaluation: RD will monitor every 3 days.
[2021-02-01] VITALS (18 sets, daily range): BP systolic 99–149; BP diastolic 69–79; PULSE 85–117; RESP 18–27; TEMP 36.6–37.2; O2SAT 94–100
[2021-02-01] MEDS: HYDROcodone/acetaminophen (*CRX) 10-325 MG TABLET 1 TAB BY MOUTH ×2 (03:16→20:35)
[2021-02-01] MEDS: LORazepam (*CRX) 1 MG TABLET PO ×2 (03:16→20:33)
[2021-02-01] MEDS: methylPREDNISolone SOD SUCC 125 MG VIAL 60 MG IV PUSH ×4 (06:07→23:32)
[2021-02-01] MEDS: CENTRAL LINE FLUSH 10 ML IV PUSH ×3 (06:10→20:34)
[2021-02-01 06:28] LABS: Alanine Aminotransferase 20 U/L (4-35); Estimated CRCL calculation 34 ml/min; Estimated Glomerular Filt Rate > 60
[2021-02-01 06:42] LABS: INR 1.8; Prothrombin Time 21.5 Seconds (11.1-14.7)
[2021-02-01] MEDS: ASCORBIC ACID 500 MG TABLET 1000 MG PO (08:11)
[2021-02-01] MEDS: FUROSEMIDE INJ 40 MG/4 ML VIAL IV PUSH ×2 (08:11→16:37)
[2021-02-01] MEDS: ENOXAPARIN 40 MG/0.4 ML SYRINGE SUB-Q ×2 (08:12→20:34)
[2021-02-01] MEDS: CHOLECALCIFEROL 1,000 UNITS TABLET 5000 UNITS PO (08:12)
[2021-02-01] MEDS: FAMOTIDINE 20 MG TABLET PO ×2 (08:12→16:39)
[2021-02-01] MEDS: LIDOCAINE 5% PATCH 1 PATCH TRANSDERM (08:13)
[2021-02-01] MEDS: SACCHAROMYCES BOULARDII 250 MG CAPSULE PO ×3 (08:13→16:37)
[2021-02-01] MEDS: amLODIPine BESYLATE 5 MG TABLET PO (08:13)
[2021-02-01] MEDS: ZINC SULFATE 220 MG CAPSULE PO (08:14)
[2021-02-01] MEDS: REMDESIVIR 100 MG/NS 250 ML 100 MG/250 ML BAG 250 MG IVPB (10:29)
--- NOTE | 2021-02-01 10:31 | PM.IMPN ---
Progress Note: A&P Assessment and Plan (1) Pneumonia due to COVID-19 virus: Code(s): U07.1 - COVID-19; J12.82 - Pneumonia due to coronavirus disease 2018 Status: Acute Assessment and Plan: Will continue current treatment with oxygen and antiviral medications Dexamethasone remdisever Total of 10 days Stable (2) Acute hypoxemic respiratory failure: Code(s): J96.01 - Acute respiratory failure with hypoxia Status: Acute Assessment and Plan: Pulmonology recommendation appreciated most likely related to COVID-19 pneumonia will continue current plan of care and treatment monitor oxygen closely Probably complicated with ARDS Continue diuresis Added IV steroid Discussed with pulmonology concern for poor prognosis Will evaluate in the next thursday regarding palliative care/hospice if no improvement (3) Chronic pelvic pain syndrome in female: Code(s): R10.2 - Pelvic and perineal pain; G89.29 - Other chronic pain Status: Acute Assessment and Plan: Pain control (4) Dehydration: Code(s): E86.0 - Dehydration Status: Acute Assessment and Plan: Stable at present (5) Adult failure to thrive: Code(s): R62.7 - Adult failure to thrive Status: Acute Assessment and Plan: Dietary consultation (6) Depression: Code(s): F32.9 - Major depressive disorder, single episode, unspecified Status: Acute Assessment and Plan: Stable at present counseling given. Subjective Date/time seen: 02/01/21 10:31 Interval history: 01/24 New consult This is a 80-year-old female who was admitted on with weakness. Chest x-ray showed minimal bilateral peripheral infiltrates and she tested positive for COVID-19 on 01/22/2021. She became minimally hypoxic requiring 2-3 L of oxygen and was started on dexamethasone as well as remdesivir. she is a poor historian and is unable to tell me when exactly her symptoms started. She appears very anxious and claims that she is short of breath but is able to complete in full sentences and when examined she appears not to be short of breath. continue dexamethaasone and remdesivir for 10 days Patient was noted to have a small right pneumothorax, pneumomediastinum no PE and worsening interstitial infiltrates on CT angiogram on 01/25. Pneumothorax and pneumomediastinum were treated conservatively. Echo with bubble 01/29: Summary 1. Normal left ventricular size with mild concentric hypertrophy. Diastolic dysfunction 2. Patent foramen ovale (PFO) CT a 1. Development of widespread pneumomediastinum tracking into the neck and bilateral axillae. 2. Small right pneumothorax. 3. No pulmonary embolus identified. 4. Interval worsening widespread groundglass opacities, consistent with pneumonia versus pulmonary edema. Patient still short of breath Chest x-ray concern for ARDS pulmonary edema And IV steroid Continue IV Lasix Ordered repeat chest x-ray on 02/01/2021 Oxygenation has improved Patient denies fever headache chest pain I am seeing the patient for pneumonia Exam Const: Other: Alert Chest bilateral crackle on high-flow oxygen Abdomen nontender nondistended CVS S1 + S2 Positive Lower extremity edema Objective Data Vital Signs Vital Signs: Vital Signs - 24 hr 01/31/21 12:00 01/31/21 14:00 01/31/21 14:54 Temperature 97.2 F L Pulse Rate 93 99 102 H Respiratory Rate 16 Blood Pressure 114/70 Pulse Oximetry 95 97 01/31/21 16:00 01/31/21 17:09 01/31/21 18:00 Temperature 97.0 F L Pulse Rate 98 115 H 120 H Respiratory Rate 18 Blood Pressure 141/74 H Pulse Oximetry 98 100 01/31/21 20:00 01/31/21 20:21 01/31/21 22:00 Temperature 99.1 F Pulse Rate 118 H 99 105 H Respiratory Rate 24 H 17 Blood Pressure 150/78 H Pulse Oximetry 96 100 02/01/21 00:00 02/01/21 02:00 02/01/21 04:00 Temperature 98.9 F Pulse Rate 94 89 93 Respiratory Rate 22 H 20 Blood Pressur
[2021-02-01 11:29] LABS: Basophils Percent Auto 0.1 % (0.2-1.2); Hematocrit 33.9 % (37.0-47.0); Hemoglobin 11.3 g/dL (12.0-15.0); Immature Granulocyte Absolute 0.39 K/mm3 (0.00-0.031); Immature Granulocyte Percent A 2.3 % (0-0.5); Lymphocytes Percent Auto 2.3 % (18.3-44.2); Mean Corpuscular HGB Conc 33.3 g/dl (32-36); Mean Corpuscular Hemoglobin 27.5 pg (26-34); Mean Corpuscular Volume 82.5 fl (80-100); Mean Platelet Volume 9.6 fl (7.4-10.4); Monocytes Absolute Auto 0.4 K/mm3 (0.1-0.6); Neutrophils Absolute Auto 16.1 K/mm3 (1.3-6.7); Neutrophils Percent Auto 93.3 % (45.5-73.1); Nucleated Red Blood Cells Perc 0.2 % (0.0-0.2); Platelet Count Result 503 k/mm3 (150-375); Red Blood Count 4.11 M/mm3 (4.2-5.4); Red Cell Distribution Width 13.2 % (11.5-14.5); White Blood Count 17.2 K/mm3 (4.5-10.0)
[2021-02-01 11:47] LABS: Alanine Aminotransferase 20 U/L (4-35); Albumin Level 3.2 g/dL (3.5-5.1); Alkaline Phosphatase 88 U/L (38-126); Anion Gap 7 mmol/L (8-16); Aspartate Amino Transferase 25 U/L (14-36); Bilirubin,Total 0.6 mg/dL (0.2-1.3); Blood Urea Nitrogen 46 mg/dL (7-17); Calcium 8.3 mg/dL (8.4-10.2); Carbon Dioxide 36 mmol/L (22-30); Chloride 91 mmol/L (98-107); Estimated CRCL calculation 38 ml/min; Estimated Glomerular Filt Rate > 60; Glucose 235 mg/dL (65-105); Potassium 2.8 mmol/L (3.4-5.0); Sodium 134 mmol/L (137-145)
[2021-02-01] MEDS: POTASSIUM CHLORIDE 20 MEQ PACKET (FOR LIQUID) 40 MEQ PO (11:54)
--- NOTE | 2021-02-01 13:02 | PC.NURSE ---
Discussed plan of care with son, Troy, via telephone. Updated him on patient progress.
[2021-02-01 13:22] LABS: Magnesium 2.1 mg/dL (1.6-2.3)
[2021-02-02] VITALS (16 sets, daily range): BP systolic 133–158; BP diastolic 72–86; PULSE 90–138; RESP 19–30; TEMP 36.1–36.8; O2SAT 85–100
[2021-02-02] MEDS: CENTRAL LINE FLUSH 10 ML IV PUSH ×3 (06:30→21:02)
[2021-02-02] MEDS: methylPREDNISolone SOD SUCC 125 MG VIAL 60 MG IV PUSH (06:30)
[2021-02-02 07:00] LABS: Basophils Percent Auto 0.1 % (0.2-1.2); Hematocrit 35.9 % (37.0-47.0); Hemoglobin 12.2 g/dL (12.0-15.0); Immature Granulocyte Absolute 0.82 K/mm3 (0.00-0.031); Immature Granulocyte Percent A 3.8 % (0-0.5); Lymphocytes Absolute Auto 0.47 K/mm3 (0.9-3.2); Lymphocytes Percent Auto 2.2 % (18.3-44.2); Mean Corpuscular Hemoglobin 28.2 pg (26-34); Mean Corpuscular Volume 82.9 fl (80-100); Mean Platelet Volume 9.8 fl (7.4-10.4); Monocytes Absolute Auto 0.5 K/mm3 (0.1-0.6); Monocytes Percent Auto 2.5 % (2.6-8.5); Neutrophils Absolute Auto 19.7 K/mm3 (1.3-6.7); Neutrophils Percent Auto 91.4 % (45.5-73.1); Nucleated Red Blood Cells Perc 0.2 % (0.0-0.2); Platelet Count Result 579 k/mm3 (150-375); Red Blood Count 4.33 M/mm3 (4.2-5.4); Red Cell Distribution Width 13.4 % (11.5-14.5); White Blood Count 21.6 K/mm3 (4.5-10.0)
[2021-02-02 07:14] LABS: Alanine Aminotransferase 20 U/L (4-35); Albumin Level 3.3 g/dL (3.5-5.1); Alkaline Phosphatase 90 U/L (38-126); Anion Gap 8 mmol/L (8-16); Aspartate Amino Transferase 24 U/L (14-36); Bilirubin,Total 0.7 mg/dL (0.2-1.3); Blood Urea Nitrogen 54 mg/dL (7-17); Calcium 8.6 mg/dL (8.4-10.2); Carbon Dioxide 31 mmol/L (22-30); Chloride 93 mmol/L (98-107); Estimated CRCL calculation 38 ml/min; Estimated Glomerular Filt Rate > 60; Glucose 235 mg/dL (65-105); Potassium 4.2 mmol/L (3.4-5.0); Sodium 132 mmol/L (137-145)
[2021-02-02] MEDS: FAMOTIDINE 20 MG TABLET PO ×2 (09:00→17:30)
[2021-02-02] MEDS: SACCHAROMYCES BOULARDII 250 MG CAPSULE PO ×3 (09:00→17:30)
[2021-02-02] MEDS: amLODIPine BESYLATE 5 MG TABLET PO (09:00)
[2021-02-02] MEDS: CHOLECALCIFEROL 1,000 UNITS TABLET 5000 UNITS PO (09:01)
[2021-02-02] MEDS: ENOXAPARIN 40 MG/0.4 ML SYRINGE SUB-Q ×2 (09:01→21:00)
[2021-02-02] MEDS: ASCORBIC ACID 500 MG TABLET 1000 MG PO (09:01)
[2021-02-02] MEDS: FUROSEMIDE INJ 40 MG/4 ML VIAL IV PUSH (09:02)
[2021-02-02] MEDS: ZINC SULFATE 220 MG CAPSULE PO (09:02)
--- NOTE | 2021-02-02 09:48 | PM.IMPN ---
Progress Note: A&P Assessment and Plan (1) Pneumonia due to COVID-19 virus: Code(s): U07.1 - COVID-19; J12.82 - Pneumonia due to coronavirus disease 2018 Status: Acute Assessment and Plan: Patient tested positive for COVID-19 on 01/22/21. Will continue current treatment with oxygen and antiviral medications s/p Dexamethasone and Remdesivir Started on Solu-medrol on 01/31. will decrease the dose to 20 mg Q12h check inflammatory markers continue vit C, vit D, and zinc (2) Acute hypoxemic respiratory failure: Code(s): J96.01 - Acute respiratory failure with hypoxia Status: Acute Assessment and Plan: Pulmonology recommendation appreciated most likely related to COVID-19 pneumonia will continue current plan of care and treatment monitor oxygen closely Probably complicated with ARDS will hold diuresis as BUN increasing Pulmonology following Echo with bubble 01/29: Summary 1. Normal left ventricular size with mild concentric hypertrophy. Diastolic dysfunction 2. Patent foramen ovale (PFO) CT a 1. Development of widespread pneumomediastinum tracking into the neck and bilateral axillae. 2. Small right pneumothorax. 3. No pulmonary embolus identified. 4. Interval worsening widespread groundglass opacities, consistent with pneumonia versus pulmonary edema. Patient still short of breath (3) Chronic pelvic pain syndrome in female: Code(s): R10.2 - Pelvic and perineal pain; G89.29 - Other chronic pain Status: Acute Assessment and Plan: Pain control -lidocaine patches (4) Dehydration: Code(s): E86.0 - Dehydration Status: Acute Assessment and Plan: Stable at present (5) Adult failure to thrive: Code(s): R62.7 - Adult failure to thrive Status: Acute Assessment and Plan: Dietary consultation -started on Megace as patient has poor appetite (6) Depression: Code(s): F32.9 - Major depressive disorder, single episode, unspecified Status: Acute Assessment and Plan: Stable at present Additional Plan Patient is code status is DNR. Subjective Date/time seen: 02/02/21 09:48 Interval history: This is a 80-year-old female who was admitted on with weakness. Chest x-ray showed minimal bilateral peripheral infiltrates and she tested positive for COVID-19 on 01/22/2021. She became minimally hypoxic requiring 2-3 L of oxygen . Status post dexamethasone x10 days and Remdesivir x10 days Patient was noted to have a small right pneumothorax, pneumomediastinum no PE and worsening interstitial infiltrates on CT angiogram on 01/25. Pneumothorax and pneumomediastinum were treated conservatively. 02/02/2021: Patient is being seen by me for the hospitalist team -patient remains on high-flow therapy 30 L flow rate, 65% FiO2 with adequate O2 sats, continues to pull her nasal cannula and then drops her O2 sats rapidly. Patient does open her eyes, follows simple commands and answers selectively. Currently complains of back pain. Does not want to eat, had poor appetite and has not been eating per nutrition's for the last so many days. has been adequate in response to diuresis. Patient is hemodynamically stable, afebrile. Review of Systems Review of Systems: All systems reviewed & are unremarkable except as noted in HPI and below Constitutional: Constitutional: Reports fatigue, Denies fever(s) and Reports weakness ENT: Reports dizziness, Reports sinus pressure and Denies sore throat Cardiovascular: Cardiovascular: Denies chest pain and Denies dyspnea Respiratory: Respiratory: Reports no additional respiratory complaints and Denies dyspnea Gastrointestinal: Gastrointestinal: Reports as per HPI and Reports no additional gastrointestinal complaints Genitourinary: Genitourinary: Reports hematuria and Reports dysuria Musculoskeletal: Musculoskeletal: Reports back pain Neurologic: Reports dizziness and Reports weakness
--- NOTE | 2021-02-02 10:38 | PCDIET ---
Nutrition Follow-Up Complete: Nutrition Diagnosis: Inadequate oral intake related to nausea as evidenced by poor intake. Nutrition Goal: Patient to meet estimated nutritional needs. Goal not met. Discussed during rounds that patient continues to eat minimally. Dr. Negrete to follow up with hospitalist service re: nutrition support. If able to place NG tube, recommend Glucerna 1.2 beginning at 20mL/hr on day one. Would advance by 20mL/hr daily, as tolerated, toward goal of 55mL/hr on day 3. Given 22 hour daily infusion, this will provide 1452kcal and 72g protein daily. Recommend 30mL water flush every 4-6 hours. If unable to place feeding tube, recommend Clinimix E 5/15 beginning at 20mL/hr on day one and advancing by 20mL/hr daily toward goal of 60mL/hr. Would add 250mL 20% lipid emulsion for total of 1522kcal and 72g protein daily. Will need to closely monitor electrolytes due to possibility of refeeding syndrome and replace, as indicated. Last recorded weight is 55.8 kg which is down from last review. -I/O. Bowel Motility: No BM documented since 01/24/21. Discussed with RN/MD. Labs Reviewed: WBC (21.6), Hct (35.9), Glu (235), BUN (54), Na (132) Meds Noted: Albuterol, Pepcid, Lasix, Norvasc, Vitamin C, Solu Medrol, Florastor, Vitamin D, Zinc Sulfate Additional Notes: No pressure sores documented. Will continue to monitor with same goal. Nutrition Monitoring and Evaluation: RD will monitor every 3 days.
[2021-02-02] MEDS: LORazepam (*CRX) 1 MG TABLET PO ×2 (12:29→21:03)
[2021-02-02] MEDS: HYDROcodone/acetaminophen (*CRX) 10-325 MG TABLET 1 TAB BY MOUTH ×2 (12:29→21:02)
[2021-02-02] MEDS: methylPREDNISolone SOD SUCC 40 MG VIAL IV PUSH (21:00)
[2021-02-03] VITALS (18 sets, daily range): BP systolic 122–147; BP diastolic 74–86; PULSE 90–113; RESP 18–23; TEMP 36.2–36.4; O2SAT 92–100
[2021-02-03] MEDS: LORazepam (*CRX) 1 MG TABLET PO ×3 (02:46→19:51)
[2021-02-03] MEDS: CENTRAL LINE FLUSH 10 ML IV PUSH ×3 (06:06→19:50)
[2021-02-03 06:07] LABS: Basophils Percent Auto 0.2 % (0.2-1.2); Hematocrit 38.2 % (37.0-47.0); Hemoglobin 12.7 g/dL (12.0-15.0); Immature Granulocyte Absolute 0.58 K/mm3 (0.00-0.031); Immature Granulocyte Percent A 2.6 % (0-0.5); Lymphocytes Absolute Auto 0.51 K/mm3 (0.9-3.2); Lymphocytes Percent Auto 2.3 % (18.3-44.2); Mean Corpuscular HGB Conc 33.2 g/dl (32-36); Mean Corpuscular Hemoglobin 27.7 pg (26-34); Mean Corpuscular Volume 83.2 fl (80-100); Mean Platelet Volume 9.7 fl (7.4-10.4); Monocytes Absolute Auto 0.8 K/mm3 (0.1-0.6); Monocytes Percent Auto 3.5 % (2.6-8.5); Neutrophils Absolute Auto 20.4 K/mm3 (1.3-6.7); Neutrophils Percent Auto 91.4 % (45.5-73.1); Nucleated Red Blood Cells Perc 0.1 % (0.0-0.2); Platelet Count Result 567 k/mm3 (150-375); Red Blood Count 4.59 M/mm3 (4.2-5.4); Red Cell Distribution Width 13.7 % (11.5-14.5); White Blood Count 22.3 K/mm3 (4.5-10.0)
[2021-02-03 06:19] LABS: D Dimer 0.34 ug/mL (<0.48)
[2021-02-03 06:22] LABS: CRP 0.6 mg/dL (<1.0); Lactate Dehydrogenase 764 U/L (313-618)
[2021-02-03] MEDS: MEGESTROL ACETATE (*CHEMO) 40 MG TABLET PO (08:32)
[2021-02-03] MEDS: ZINC SULFATE 220 MG CAPSULE PO (08:32)
[2021-02-03] MEDS: FAMOTIDINE 20 MG TABLET PO (08:32)
[2021-02-03] MEDS: ASCORBIC ACID 500 MG TABLET 1000 MG PO (08:32)
[2021-02-03] MEDS: SACCHAROMYCES BOULARDII 250 MG CAPSULE PO ×2 (08:32→12:42)
[2021-02-03] MEDS: CHOLECALCIFEROL 1,000 UNITS TABLET 5000 UNITS PO (08:32)
[2021-02-03] MEDS: amLODIPine BESYLATE 5 MG TABLET PO (08:33)
[2021-02-03] MEDS: ENOXAPARIN 40 MG/0.4 ML SYRINGE SUB-Q ×2 (08:33→19:50)
[2021-02-03] MEDS: methylPREDNISolone SOD SUCC 40 MG VIAL IV PUSH ×2 (08:33→19:49)
[2021-02-03] MEDS: LIDOCAINE 5% PATCH 1 PATCH TRANSDERM ×2 (08:33→19:49)
--- NOTE | 2021-02-03 09:59 | PM.IMPN ---
Progress Note: A&P Assessment and Plan (1) Pneumonia due to COVID-19 virus: Code(s): U07.1 - COVID-19; J12.82 - Pneumonia due to coronavirus disease 2018 Status: Acute Assessment and Plan: Will continue current treatment with oxygen and antiviral medications Dexamethasone remdisever Total of 10 days Stable (2) Acute hypoxemic respiratory failure: Code(s): J96.01 - Acute respiratory failure with hypoxia Status: Acute Assessment and Plan: Pulmonology recommendation appreciated most likely related to COVID-19 pneumonia will continue current plan of care and treatment monitor oxygen closely Probably complicated with ARDS Continue diuresis Continue IV steroid Discussed with pulmonology concern for poor prognosis Repeat chest x-ray today Will evaluate in the next thursday regarding palliative care/hospice if no improvement (3) Chronic pelvic pain syndrome in female: Code(s): R10.2 - Pelvic and perineal pain; G89.29 - Other chronic pain Status: Acute Assessment and Plan: Pain control (4) Dehydration: Code(s): E86.0 - Dehydration Status: Acute Assessment and Plan: Resolved (5) Adult failure to thrive: Code(s): R62.7 - Adult failure to thrive Status: Acute Assessment and Plan: Dietary consultation no plan for TPN and encourage oral hydration encouraged Ensure (6) Depression: Code(s): F32.9 - Major depressive disorder, single episode, unspecified Status: Acute Assessment and Plan: Stable at present counseling given. Additional Plan Patient is code status is DNR. Acute hypokalemia replace repeat CMP Subjective Date/time seen: 02/03/21 09:59 Interval history: 01/24 New consult This is a 80-year-old female who was admitted on with weakness. Chest x-ray showed minimal bilateral peripheral infiltrates and she tested positive for COVID-19 on 01/22/2021. She became minimally hypoxic requiring 2-3 L of oxygen and was started on dexamethasone as well as remdesivir. she is a poor historian and is unable to tell me when exactly her symptoms started. She appears very anxious and claims that she is short of breath but is able to complete in full sentences and when examined she appears not to be short of breath. continue dexamethaasone and remdesivir for 10 days Patient was noted to have a small right pneumothorax, pneumomediastinum no PE and worsening interstitial infiltrates on CT angiogram on 01/25. Pneumothorax and pneumomediastinum were treated conservatively. Echo with bubble 01/29: Summary 1. Normal left ventricular size with mild concentric hypertrophy. Diastolic dysfunction 2. Patent foramen ovale (PFO) CT a 1. Development of widespread pneumomediastinum tracking into the neck and bilateral axillae. 2. Small right pneumothorax. 3. No pulmonary embolus identified. 4. Interval worsening widespread groundglass opacities, consistent with pneumonia versus pulmonary edema. Patient still short of breath Chest x-ray concern for ARDS pulmonary edema And IV steroid Continue IV Lasix Ordered repeat chest x-ray on 02/01/2021 Oxygenation has improved Patient is not eating or drinking well dietitian consult Repeat chest x-ray today Repeat CMP Will continue to monitor if no improvement will discuss palliative care/hospice eval with the family on Thursday Patient denies fever headache chest pain I am seeing the patient for pneumonia Exam Const: Other: Alert Chest bilateral crackle on high-flow oxygen Abdomen nontender nondistended CVS S1 + S2 Positive Lower extremity edema Objective Data Vital Signs Vital Signs: Vital Signs - 24 hr 02/02/21 10:00 02/02/21 12:00 02/02/21 14:00 Temperature 96.9 F L Pulse Rate 119 H 138 H 109 H Respiratory Rate 30 H Blood Pressure 152/82 H Pulse Oximetry 95 02/02/21 14:22 02/02/21 15:02 02/02/21 16:00 Temperature 97 F L Pulse Rate 107 H 102 H 114
[2021-02-03 11:20] LABS: Alanine Aminotransferase 26 U/L (4-35); Albumin Level 3.4 g/dL (3.5-5.1); Alkaline Phosphatase 95 U/L (38-126); Anion Gap 10 mmol/L (8-16); Aspartate Amino Transferase 34 U/L (14-36); Bilirubin,Total 0.9 mg/dL (0.2-1.3); Blood Urea Nitrogen 68 mg/dL (7-17); Calcium 8.8 mg/dL (8.4-10.2); Carbon Dioxide 30 mmol/L (22-30); Chloride 93 mmol/L (98-107); Estimated CRCL calculation 31 ml/min; Estimated Glomerular Filt Rate 54; Glucose 244 mg/dL (65-105); Potassium 3.7 mmol/L (3.4-5.0); Sodium 133 mmol/L (137-145)
[2021-02-03 12:04] LABS: Procalcitonin 0.1 ng/mL
[2021-02-03] MEDS: HYDROcodone/acetaminophen (*CRX) 10-325 MG TABLET 1 TAB BY MOUTH ×2 (12:42→18:07)
--- NOTE | 2021-02-03 18:39 | PC.NURSE ---
pt spilled a glass with ice and Coke all over the bedside table that dripped onto the floor, her i-pad and cell phone was covered in the spilled product, wiped dry and clean at this time, unableto determine if either functions any longer
[2021-02-04] VITALS (17 sets, daily range): BP systolic 120–161; BP diastolic 62–90; PULSE 96–127; RESP 15–31; TEMP 36.1–36.8; O2SAT 90–100
[2021-02-04] MEDS: CENTRAL LINE FLUSH 10 ML IV PUSH ×3 (04:59→19:16)
[2021-02-04 05:18] LABS: Basophils Percent Auto 0.2 % (0.2-1.2); Immature Granulocyte Absolute 0.43 K/mm3 (0.00-0.031); Immature Granulocyte Percent A 2.3 % (0-0.5); Lymphocytes Absolute Auto 0.32 K/mm3 (0.9-3.2); Lymphocytes Percent Auto 1.7 % (18.3-44.2); Mean Corpuscular HGB Conc 34.3 g/dl (32-36); Mean Corpuscular Hemoglobin 27.9 pg (26-34); Mean Corpuscular Volume 81.4 fl (80-100); Monocytes Absolute Auto 0.7 K/mm3 (0.1-0.6); Monocytes Percent Auto 3.7 % (2.6-8.5); Neutrophils Absolute Auto 17.1 K/mm3 (1.3-6.7); Neutrophils Percent Auto 92.1 % (45.5-73.1); Nucleated Red Blood Cells Perc 0.2 % (0.0-0.2); Platelet Count Result 447 k/mm3 (150-375); Red Cell Distribution Width 13.4 % (11.5-14.5); White Blood Count 18.5 K/mm3 (4.5-10.0)
[2021-02-04 05:35] LABS: Alanine Aminotransferase 28 U/L (4-35); Albumin Level 3.3 g/dL (3.5-5.1); Alkaline Phosphatase 86 U/L (38-126); Anion Gap 7 mmol/L (8-16); Aspartate Amino Transferase 31 U/L (14-36); Bilirubin,Total 0.9 mg/dL (0.2-1.3); Blood Urea Nitrogen 70 mg/dL (7-17); Calcium 8.8 mg/dL (8.4-10.2); Carbon Dioxide 33 mmol/L (22-30); Chloride 93 mmol/L (98-107); Estimated CRCL calculation 31 ml/min; Estimated Glomerular Filt Rate 54; Glucose 282 mg/dL (65-105); Potassium 3.9 mmol/L (3.4-5.0); Sodium 133 mmol/L (137-145)
[2021-02-04] MEDS: MORPHINE SULFATE ORAL CONC SOL (*CRX) 10 MG/0.5 ML SYRINGE 5 MG PO ×4 (06:28→23:46)
[2021-02-04 06:37] LABS: Anisocytosis 1+ (NORMAL); Platelet Estimate Adequate (Adequate)
[2021-02-04] MEDS: LORazepam INJ (*CRX) 2 MG/ML VIAL 0.5 MG IV PUSH ×3 (06:49→23:47)
[2021-02-04] MEDS: ENOXAPARIN 40 MG/0.4 ML SYRINGE SUB-Q ×2 (08:33→19:16)
[2021-02-04] MEDS: methylPREDNISolone SOD SUCC 40 MG VIAL IV PUSH (08:33)
--- NOTE | 2021-02-04 08:59 | PM.IMPN ---
Progress Note: A&P Assessment and Plan (1) Pneumonia due to COVID-19 virus: Code(s): U07.1 - COVID-19; J12.82 - Pneumonia due to coronavirus disease 2018 Status: Acute Assessment and Plan: remdisever Total of 10 days status post dexamethasone no improvement (2) Acute hypoxemic respiratory failure: Code(s): J96.01 - Acute respiratory failure with hypoxia Status: Acute Assessment and Plan: Pulmonology recommendation appreciated most likely related to COVID-19 pneumonia will continue current plan of care and treatment monitor oxygen closely Probably complicated with ARDS Continue diuresis Continue IV steroid Discussed with pulmonology concern for poor prognosis will discuss with family regarding hospice (3) Chronic pelvic pain syndrome in female: Code(s): R10.2 - Pelvic and perineal pain; G89.29 - Other chronic pain Status: Acute Assessment and Plan: Pain control (4) Dehydration: Code(s): E86.0 - Dehydration Status: Acute Assessment and Plan: Resolved (5) Adult failure to thrive: Code(s): R62.7 - Adult failure to thrive Status: Acute Assessment and Plan: Dietary consultation no plan for TPN and encourage oral hydration encouraged Ensure will discuss with family regarding hospice (6) Depression: Code(s): F32.9 - Major depressive disorder, single episode, unspecified Status: Acute Assessment and Plan: Stable at present counseling given. Subjective Date/time seen: 02/04/21 08:59 Interval history: 01/24 New consult This is a 80-year-old female who was admitted on with weakness. Chest x-ray showed minimal bilateral peripheral infiltrates and she tested positive for COVID-19 on 01/22/2021. She became minimally hypoxic requiring 2-3 L of oxygen and was started on dexamethasone as well as remdesivir. she is a poor historian and is unable to tell me when exactly her symptoms started. She appears very anxious and claims that she is short of breath but is able to complete in full sentences and when examined she appears not to be short of breath. continue dexamethaasone and remdesivir for 10 days Patient was noted to have a small right pneumothorax, pneumomediastinum no PE and worsening interstitial infiltrates on CT angiogram on 01/25. Pneumothorax and pneumomediastinum were treated conservatively. Echo with bubble 01/29: Summary 1. Normal left ventricular size with mild concentric hypertrophy. Diastolic dysfunction 2. Patent foramen ovale (PFO) CT a 1. Development of widespread pneumomediastinum tracking into the neck and bilateral axillae. 2. Small right pneumothorax. 3. No pulmonary embolus identified. 4. Interval worsening widespread groundglass opacities, consistent with pneumonia versus pulmonary edema. Patient still short of breath Chest x-ray concern for ARDS pulmonary edema And IV steroid Continue IV Lasix Ordered repeat chest x-ray on 02/01/2021 Oxygenation has improved Patient is not eating or drinking well dietitian consult patient condition is not improving patient is not eating or drinking will discuss with family regarding hospice today Patient denies fever headache chest pain I am seeing the patient for pneumonia Exam Const: Other: more sleepy and lethargic today Chest bilateral crackle on high-flow oxygen Abdomen nontender nondistended CVS S1 + S2 Positive Lower extremity edema Objective Data Vital Signs Vital Signs: Vital Signs - 24 hr 02/03/21 10:00 02/03/21 10:46 02/03/21 12:00 Temperature 97.5 F L Pulse Rate 101 H 95 Respiratory Rate 23 H Blood Pressure 122/75 Pulse Oximetry 92 100 02/03/21 14:00 02/03/21 16:00 02/03/21 18:00 Temperature 97.1 F L Pulse Rate 94 103 H 109 H Respiratory Rate 21 H Blood Pressure 139/85 Pulse Oximetry 98 02/03/21 19:59 02/03/21 20:00 02/03/21 20:57 Temperature 97.4 F L Pulse Rate 103 H 102
--- NOTE | 2021-02-04 18:16 | PC.NURSE ---
Dr. Iraheta talked with family discussing options, on the phone, pt's son called and talked to this nurse, asked pt several times if she wanted an NG tube and tube feeding, she would not answer this nurse at this time, son called back and we discussed pro's and cons of ng tube. set up a face time with pt and daughter and son, she agreed to the ng tube verbally to them, unsure if pt actually new what she was agreeing to, notified doctor after this discussion and he stated to place tube in am
[2021-02-05] VITALS (20 sets, daily range): BP systolic 126–141; BP diastolic 70–85; PULSE 98–124; RESP 13–23; TEMP 36.1–36.8; O2SAT 94–100
[2021-02-05] MEDS: MORPHINE SULFATE ORAL CONC SOL (*CRX) 10 MG/0.5 ML SYRINGE 5 MG PO (04:21)
[2021-02-05] MEDS: CENTRAL LINE FLUSH 10 ML IV PUSH ×3 (04:22→20:24)
[2021-02-05 04:43] LABS: Hematocrit 35.4 % (37.0-47.0); Hemoglobin 12.1 g/dL (12.0-15.0); Mean Corpuscular HGB Conc 34.2 g/dl (32-36); Mean Corpuscular Hemoglobin 28.1 pg (26-34); Mean Corpuscular Volume 82.1 fl (80-100); Mean Platelet Volume 10.3 fl (7.4-10.4); Platelet Count Result 411 k/mm3 (150-375); Red Blood Count 4.31 M/mm3 (4.2-5.4); Red Cell Distribution Width 13.7 % (11.5-14.5); White Blood Count 27.6 K/mm3 (4.5-10.0)
[2021-02-05 05:01] LABS: Alanine Aminotransferase 32 U/L (4-35); Albumin Level 3.3 g/dL (3.5-5.1); Alkaline Phosphatase 89 U/L (38-126); Anion Gap 7 mmol/L (8-16); Aspartate Amino Transferase 31 U/L (14-36); Bilirubin,Total 0.8 mg/dL (0.2-1.3); Blood Urea Nitrogen 79 mg/dL (7-17); Calcium 8.7 mg/dL (8.4-10.2); Carbon Dioxide 32 mmol/L (22-30); Chloride 97 mmol/L (98-107); Estimated CRCL calculation 28 ml/min; Estimated Glomerular Filt Rate 48; Glucose 227 mg/dL (65-105); Potassium 3.7 mmol/L (3.4-5.0); Sodium 136 mmol/L (137-145)
[2021-02-05] MEDS: SODIUM CHLORIDE 0.9% IV 1,000 ML 70 ML IV CONT ×2 (05:43→20:24)
[2021-02-05] MEDS: ENOXAPARIN 40 MG/0.4 ML SYRINGE SUB-Q ×2 (08:12→20:25)
[2021-02-05] MEDS: LIDOCAINE 5% PATCH 1 PATCH TRANSDERM (08:12)
[2021-02-05] MEDS: methylPREDNISolone SOD SUCC 40 MG VIAL IV PUSH (08:13)
[2021-02-05] MEDS: LORazepam INJ (*CRX) 2 MG/ML VIAL 0.5 MG IV PUSH (09:45)
--- NOTE | 2021-02-05 11:38 | PCDIET ---
Nutrition Follow-Up Complete: Nutrition Diagnosis: Inadequate oral intake related to nausea as evidenced by poor po intake. Nutrition Goal: Patient to meet estimated nutritional needs. Goal not met. However, NG tube being placed for enteral nutrition. Continue to recommend goal rate of 55mL/hr Glucerna 1.2. Discussed with RN recommendation for 20mL/hr on day one due to potential for refeeding syndrome and advancing toward goal over the course of a few days. Would monitor electrolytes closely and replace, as needed. Last recorded weight is 54.5 kg which is down from last review. -I/O. Bowel Motility: No documented BM. Labs Reviewed: WBC (27.6), Hct (35.4), Glu (227), BUN (79), Cr (1.1), Na (136), Alb (3.3) Meds Noted: Lovenox, Ativan, Solu-Medrol, Roxanol, NS at 70mL/hr Additional Notes: No documented skin breakdown. Will continue to monitor with same goal. Nutrition Monitoring and Evaluation: Follow up every Thursday/Thursday.
[2021-02-05 12:01] LABS: Vitamin D 1,25 (OH)2 Total 72 pg/mL (18-72); Vitamin D2 1,25 (OH)2 <8 pg/mL; Vitamin D3 1,25 (OH)2 72 pg/mL
[2021-02-05] MEDS: SACCHAROMYCES BOULARDII 250 MG CAPSULE PO ×2 (14:27→17:14)
--- NOTE | 2021-02-05 15:58 | PM.IMPN ---
Progress Note: A&P Assessment and Plan (1) Acute hypoxemic respiratory failure: Code(s): J96.01 - Acute respiratory failure with hypoxia Status: Acute Assessment and Plan: CTA of the chest on 01/22/2021 showing findings consistent with COVID infection as well as mild interstitial lung disease. Negative for pulmonary embolism at that time. Repeat CTA on 01/25 showing pneumomediastinum him right pneumothorax. She also had echocardiogram on 01/29 which showed EF of 70%, grade 2 diastolic dysfunction and a patent foramen ovale with a [id number] shunt. Most likely her major insult is from the COVID infection worsened by her underlying lung cardiac issues. Pulmonary following and appreciate their recommendations. She has completed 10 days of treatment with Remdesivir and dexamethasone. Patient is a DNR. Patient is very weak from lack of oral intake. If top of was placed earlier today patient was started on tube feedings. Continue supportive care. Wean oxygen as tolerated. Hospice was discussed with family but no plans to proceed in this direction at this time. (2) Pneumonia due to COVID-19 virus: Code(s): U07.1 - COVID-19; J12.82 - Pneumonia due to coronavirus disease 2019 Status: Acute Assessment and Plan: Patient tested positive for COVID-19 on 01/22/2021. She completed 10 days of remdesivir and dexamethasone. Solu-Medrol started today. Some evidence of improvement with hypoxia. Albuterol available as needed but patient is not receiving very much for this at all. Continue supportive care. (3) Pneumothorax: Code(s): J93.9 - Pneumothorax, unspecified Status: Acute Assessment and Plan: CTA on 01/25/2021 showed widespread pneumomediastinum tracking to the neck in bilateral axilla with a small right pneumothorax. Chest x-ray today continues to show pneumomediastinum and small bilateral pneumothoraces. Continue supportive care. General surgery input appreciated. (4) Adult failure to thrive: Code(s): R62.7 - Adult failure to thrive Status: Acute Assessment and Plan: Patient has had poor oral intake. She is extremely weak. Patient unable to make medical decisions at this time. Family wished to proceed with Dobbhoff feedings. Dobbhoff was placed. Tube feedings were started. Continue IV fluids for now but stopped his once to feedings are at goal. Continue Magace (5) Depression: Code(s): F32.9 - Major depressive disorder, single episode, unspecified Status: Acute Assessment and Plan: Patient with depressed mood possibly contributing to her failure to thrive. Does not have depression on her past medical history nor does she take medications for depression. Will follow. (6) Chronic pelvic pain syndrome in female: Code(s): R10.2 - Pelvic and perineal pain; G89.29 - Other chronic pain Status: Acute Assessment and Plan: This is the patient's initial complaint. Continue pain management. (7) Dehydration: Code(s): E86.0 - Dehydration Status: Acute Assessment and Plan: Resolved Subjective Date/time seen: 02/05/21 15:58 Interval history: 80-year-old female with HTN who was admitted on 01/19 for pelvic pain and developed hypoxia and diagnosed with COVID 01/22. She became minimally hypoxic requiring 2-3 L of oxygen and was started on dexamethasone as well as remdesivir. Patient was noted to have a small right pneumothorax, pneumomediastinum no PE and worsening interstitial infiltrates on CT angiogram on 01/25. Pneumothorax and pneumomediastinum were treated conservatively. Assuming care. Chart reviewed. Patient alert but has very weak voice and is difficult to understand. Thus she is unable to provide history. RN has been trying to wean O2 and has patient down to 13L. Review of Systems Review of Systems: ROS unobtainable: Yes unobtainable due to medical condition Exam
[2021-02-05] MEDS: INSULIN ASPART (*BKC) 100 UNITS/ML SUB-Q (17:13)
[2021-02-05] MEDS: FAMOTIDINE 20 MG TABLET PO (17:14)
[2021-02-05 17:28] LABS: Glucose Point of Care 250 mg/dl (65-105)
[2021-02-05 23:32] LABS: Glucose Point of Care 241 mg/dl (65-105)
[2021-02-06] VITALS (21 sets, daily range): BP systolic 124–146; BP diastolic 58–78; PULSE 89–113; RESP 20–24; TEMP 35.6–36.7; O2SAT 90–99
[2021-02-06] MEDS: CENTRAL LINE FLUSH 10 ML IV PUSH ×3 (03:29→22:37)
[2021-02-06 03:45] LABS: Basophils Absolute Auto 0.1 K/mm3 (0.0-0.1); Basophils Percent Auto 0.2 % (0.2-1.2); Hemoglobin 10.7 g/dL (12.0-15.0); Immature Granulocyte Absolute 0.91 K/mm3 (0.00-0.031); Immature Granulocyte Percent A 3.1 % (0-0.5); Lymphocytes Absolute Auto 0.39 K/mm3 (0.9-3.2); Lymphocytes Percent Auto 1.3 % (18.3-44.2); Mean Corpuscular HGB Conc 32.4 g/dl (32-36); Mean Corpuscular Hemoglobin 27.7 pg (26-34); Mean Corpuscular Volume 85.5 fl (80-100); Mean Platelet Volume 10.4 fl (7.4-10.4); Monocytes Absolute Auto 1.5 K/mm3 (0.1-0.6); Monocytes Percent Auto 5.1 % (2.6-8.5); Neutrophils Absolute Auto 26.1 K/mm3 (1.3-6.7); Neutrophils Percent Auto 90.3 % (45.5-73.1); Nucleated Red Blood Cells Absolute Auto 0.1 K/mm3 (0.0-0.012); Nucleated Red Blood Cells Perc 0.5 % (0.0-0.2); Platelet Count Result 303 k/mm3 (150-375); Red Blood Count 3.86 M/mm3 (4.2-5.4); Red Cell Distribution Width 14.5 % (11.5-14.5); White Blood Count 28.9 K/mm3 (4.5-10.0)
[2021-02-06 03:59] LABS: Alanine Aminotransferase 29 U/L (4-35); Albumin Level 2.8 g/dL (3.5-5.1); Alkaline Phosphatase 89 U/L (38-126); Anion Gap 7 mmol/L (8-16); Aspartate Amino Transferase 30 U/L (14-36); Bilirubin,Total 0.8 mg/dL (0.2-1.3); Blood Urea Nitrogen 68 mg/dL (7-17); Calcium 8.7 mg/dL (8.4-10.2); Carbon Dioxide 31 mmol/L (22-30); Chloride 104 mmol/L (98-107); Estimated CRCL calculation 31 ml/min; Estimated Glomerular Filt Rate 54; Glucose 209 mg/dL (65-105); Magnesium 3.1 mg/dL (1.6-2.3); Phosphorus 2.9 mg/dL (2.5-4.5); Potassium 3.3 mmol/L (3.4-5.0); Sodium 142 mmol/L (137-145)
[2021-02-06 05:34] LABS: Glucose Point of Care 210 mg/dl (65-105)
[2021-02-06] MEDS: ENOXAPARIN 40 MG/0.4 ML SYRINGE SUB-Q ×2 (09:09→20:00)
[2021-02-06] MEDS: MEGESTROL ACETATE (*CHEMO) 40 MG TABLET PO (09:10)
[2021-02-06] MEDS: POTASSIUM CHLORIDE 20 MEQ PACKET (FOR LIQUID) FEED TUBE (09:10)
[2021-02-06] MEDS: FAMOTIDINE 20 MG TABLET PO ×2 (09:10→17:41)
[2021-02-06] MEDS: ASCORBIC ACID 500 MG TABLET 1000 MG PO (09:10)
[2021-02-06] MEDS: CHOLECALCIFEROL 1,000 UNITS TABLET 5000 UNITS PO (09:10)
[2021-02-06] MEDS: LIDOCAINE 5% PATCH 1 PATCH TRANSDERM (09:10)
[2021-02-06] MEDS: ZINC SULFATE 220 MG CAPSULE PO (09:10)
[2021-02-06] MEDS: SACCHAROMYCES BOULARDII 250 MG CAPSULE PO ×3 (09:11→17:41)
[2021-02-06] MEDS: amLODIPine BESYLATE 5 MG TABLET PO (09:12)
[2021-02-06] MEDS: methylPREDNISolone SOD SUCC 40 MG VIAL IV PUSH (09:13)
[2021-02-06] MEDS: INSULIN ASPART (*BKC) 100 UNITS/ML SUB-Q ×3 (09:13→17:41)
[2021-02-06] MEDS: MORPHINE SULFATE ORAL CONC SOL (*CRX) 10 MG/0.5 ML SYRINGE 5 MG PO ×2 (09:18→22:42)
--- NOTE | 2021-02-06 10:37 | PCDIET ---
Nutrition Follow-Up Complete: Nutrition Diagnosis: Inadequate oral intake related to nausea as evidenced by poor po intake. Nutrition Goal: Patient to meet estimated nutritional needs. Goal in progress. Patient has been tolerating Glucerna 1.2 at 20mL/hr via Dobhoff. K+ being replaced. Recommend increasing by 10mL/hr every 8 hours to goal of 40mL/hr over next 24 hours. Ultimate recommended goal will be 55mL/hr. Recommend 30mL water flush every 4 hours. Last recorded weight is 54.2 kg which is stable with last review. Bowel Motility: No BM documented. If medically appropriate, would consider adding medication for this. Labs Reviewed: Hgb (10.7), Hct (33.0), Glu (209), BUN (68), K (3.3), Mg (3.1) Meds Noted: Norvasc, Vitamin C, Pepcid, Novolog, Megace, Solu Medrol, Roxanol, Florastor, NS at 70mL/hr, Vitamin D, Zinc Sulfate Additional Notes: No documented skin breakdown. Will continue to monitor with same goal. Nutrition Monitoring and Evaluation: Follow up every Thursday/Thursday.
[2021-02-06] MEDS: SODIUM CHLORIDE 0.9% IV 1,000 ML 70 ML IV CONT ×2 (10:42→20:15)
[2021-02-06 12:05] LABS: Glucose Point of Care 336 mg/dl (65-105)
--- NOTE | 2021-02-06 14:04 | PM.IMPN ---
Progress Note: A&P Assessment and Plan (1) Acute hypoxemic respiratory failure: Code(s): J96.01 - Acute respiratory failure with hypoxia Status: Acute Assessment and Plan: CTA of the chest on 01/22/2021 showing findings consistent with COVID infection as well as mild interstitial lung disease. Negative for pulmonary embolism at that time. Repeat CTA on 01/25 showing pneumomediastinum him right pneumothorax. She also had echocardiogram on 01/29 which showed EF of 70%, grade 2 diastolic dysfunction and a patent foramen ovale with a [id number] shunt. Most likely her major insult is from the COVID infection worsened by her underlying lung cardiac issues. Pulmonary following and appreciate their recommendations. She has completed 10 days of treatment with Remdesivir and dexamethasone. Patient is a DNR. Patient is very weak from lack of oral intake. Dobhoff was placed and patient was started on tube feedings. Continue supportive care. Wean oxygen as tolerated. Hospice was discussed with family but no plans to proceed in this direction at this time. Able to wean O2. Continue to wean o2 as tolerated. (2) Pneumonia due to COVID-19 virus: Code(s): U07.1 - COVID-19; J12.82 - Pneumonia due to coronavirus disease 2018 Status: Acute Assessment and Plan: Patient tested positive for COVID-19 on 01/22/2021. She completed 10 days of remdesivir and dexamethasone. Solu-Medrol started yesterday. Some improvement with hypoxia. Albuterol available as needed but patient is not receiving very much for this at all. Continue supportive care. (3) Pneumothorax: Code(s): J93.9 - Pneumothorax, unspecified Status: Acute Assessment and Plan: CTA on 01/25/2021 showed widespread pneumomediastinum tracking to the neck in bilateral axilla with a small right pneumothorax. Chest x-ray yesterday continues to show pneumomediastinum and small bilateral pneumothoraces. Continue supportive care. General surgery input appreciated. (4) Adult failure to thrive: Code(s): R62.7 - Adult failure to thrive Status: Acute Assessment and Plan: Patient has had poor oral intake. She is extremely weak. Patient unable to make medical decisions at this time. Family wished to proceed with Dobbhoff feedings which was placed 02/05/21. Dobbhoff was placed by Fluoro. Tube feedings were started. Continue IV fluids for now but stopped his once to feedings are at goal. Continue Megace. Advance TF as tolerated. (5) Depression: Code(s): F32.9 - Major depressive disorder, single episode, unspecified Status: Acute Assessment and Plan: Patient with depressed mood possibly contributing to her failure to thrive. Does not have depression on her past medical history nor does she take medications for depression. Will follow. Consider treatment if she continues to improve (6) Chronic pelvic pain syndrome in female: Code(s): R10.2 - Pelvic and perineal pain; G89.29 - Other chronic pain Status: Acute Assessment and Plan: This was the patient's initial complaint. Continue pain management. (7) Dehydration: Code(s): E86.0 - Dehydration Status: Acute Assessment and Plan: Resolved (8) DVT prophylaxis: Code(s): Z29.9 - Encounter for prophylactic measures, unspecified Status: Acute Assessment and Plan: Lovenox (9) Hyperglycemia: Code(s): R73.9 - Hyperglycemia, unspecified Status: Acute Assessment and Plan: Related to steroids. Continue AccuCheks covering with sliding scale. Hypoglycemia protocol available as needed. Add Lantus Subjective Date/time seen: 02/06/21 14:04 Interval history: 80-year-old female with HTN who was admitted on 01/19 for pelvic pain and developed hypoxia and diagnosed with COVID 01/22. She became minimally hypoxic requiring 2-3 L of oxygen and was started on dexamet
[2021-02-06] MEDS: LORazepam INJ (*CRX) 2 MG/ML VIAL 0.5 MG IV PUSH ×2 (15:48→20:15)
[2021-02-06 17:34] LABS: Glucose Point of Care 224 mg/dl (65-105)
[2021-02-06] MEDS: INSULIN GLARGINE (*BKC) 100 UNITS/ML 8 UNITS SUB-Q (20:00)
[2021-02-06] MEDS: ALBUTEROL SULFATE (*SP) INHALER 1 PUFF (23:19)
[2021-02-06 23:21] LABS: Glucose Point of Care 223 mg/dl (65-105)
[2021-02-07] VITALS (23 sets, daily range): BP systolic 139–154; BP diastolic 56–80; PULSE 87–115; RESP 14–32; TEMP 36.4–36.7; O2SAT 79–99
[2021-02-07] MEDS: LORazepam INJ (*CRX) 2 MG/ML VIAL 0.5 MG IV PUSH ×3 (03:09→20:32)
[2021-02-07] MEDS: INSULIN ASPART (*BKC) 100 UNITS/ML SUB-Q ×2 (03:09→18:00)
[2021-02-07] MEDS: MORPHINE SULFATE ORAL CONC SOL (*CRX) 10 MG/0.5 ML SYRINGE 5 MG PO ×3 (04:48→18:14)
[2021-02-07] MEDS: CENTRAL LINE FLUSH 10 ML IV PUSH ×3 (04:48→20:43)
[2021-02-07 04:52] LABS: Hematocrit 29.5 % (37.0-47.0); Hemoglobin 9.5 g/dL (12.0-15.0); Mean Corpuscular HGB Conc 32.2 g/dl (32-36); Mean Corpuscular Hemoglobin 28.2 pg (26-34); Mean Corpuscular Volume 87.5 fl (80-100); Mean Platelet Volume 10.7 fl (7.4-10.4); Platelet Count Result 218 k/mm3 (150-375); Red Blood Count 3.37 M/mm3 (4.2-5.4); White Blood Count 25.5 K/mm3 (4.5-10.0)
[2021-02-07 05:12] LABS: Anion Gap 5 mmol/L (8-16); Blood Urea Nitrogen 42 mg/dL (7-17); Calcium 9.2 mg/dL (8.4-10.2); Carbon Dioxide 29 mmol/L (22-30); Chloride 115 mmol/L (98-107); Estimated CRCL calculation 50 ml/min; Estimated Glomerular Filt Rate > 60; Glucose 96 mg/dL (65-105); Phosphorus 2.1 mg/dL (2.5-4.5); Sodium 149 mmol/L (137-145)
[2021-02-07] MEDS: POTASSIUM/PHOSPHORUS/SODIUM 1.5 GM PACKET 1 PACKET FEED TUBE (09:21)
[2021-02-07] MEDS: ENOXAPARIN 40 MG/0.4 ML SYRINGE SUB-Q ×2 (09:21→20:43)
[2021-02-07] MEDS: ASCORBIC ACID 500 MG TABLET 1000 MG PO (09:22)
[2021-02-07] MEDS: ZINC SULFATE 220 MG CAPSULE PO (09:22)
[2021-02-07] MEDS: SACCHAROMYCES BOULARDII 250 MG CAPSULE PO (09:22)
[2021-02-07] MEDS: MEGESTROL ACETATE (*CHEMO) 40 MG TABLET PO (09:23)
[2021-02-07] MEDS: CHOLECALCIFEROL 1,000 UNITS TABLET 5000 UNITS PO (09:23)
[2021-02-07] MEDS: FAMOTIDINE 20 MG TABLET PO (09:23)
[2021-02-07] MEDS: amLODIPine BESYLATE 5 MG TABLET PO (09:24)
[2021-02-07] MEDS: methylPREDNISolone SOD SUCC 40 MG VIAL IV PUSH (09:24)
[2021-02-07] MEDS: LIDOCAINE 5% PATCH 1 PATCH TRANSDERM (09:44)
--- NOTE | 2021-02-07 11:04 | PM.IMPN ---
Progress Note: A&P Assessment and Plan (1) Acute hypoxemic respiratory failure: Code(s): J96.01 - Acute respiratory failure with hypoxia Status: Acute Assessment and Plan: CTA of the chest on 01/22/2021 showing findings consistent with COVID infection as well as mild interstitial lung disease. Negative for pulmonary embolism at that time. Repeat CTA on 01/25 showing pneumomediastinum him right pneumothorax. She also had echocardiogram on 01/29 which showed EF of 70%, grade 2 diastolic dysfunction and a patent foramen ovale with a [id number] shunt. Most likely her major insult is from the COVID infection worsened by her underlying lung and cardiac issues. Pulmonary following and appreciate their recommendations. She has completed 10 days of treatment with Remdesivir and dexamethasone. Patient is a DNR. Patient is very weak from lack of oral intake. Dobhoff was placed and patient was started on tube feedings. Hospice was discussed with family but no plans to proceed in this direction at this time. Continue to wean O2 as tolerated. Continue supportive care. (2) Pneumonia due to COVID-19 virus: Code(s): U07.1 - COVID-19; J12.82 - Pneumonia due to coronavirus disease 2019 Status: Acute Assessment and Plan: Patient tested positive for COVID-19 on 01/22/2021. She completed 10 days of remdesivir and dexamethasone. Solu-Medrol started 02/05. Some improvement with hypoxia yesterday but worse overnight possibly related to agitation. Albuterol available as needed but not receiving. Will schedule nebs. Continue supportive care. (3) Pneumothorax: Code(s): J93.9 - Pneumothorax, unspecified Status: Acute Assessment and Plan: Chest CTA on 01/25 showed widespread pneumomediastinum tracking to the neck in bilateral axilla with a small right pneumothorax. Repeat chest x-ray continues to show pneumomediastinum and small bilateral pneumothoraces. Continue supportive care. General surgery input appreciated. Repeat CXR this morning since change in status. (4) Hyperglycemia: Code(s): R73.9 - Hyperglycemia, unspecified Status: Acute Assessment and Plan: Related to steroids. Glucose better this morning but probably overcorrected. Continue AccuCheks covering with sliding scale. Hypoglycemia protocol available as needed. Will continue current Lantus dose. (5) Adult failure to thrive: Code(s): R62.7 - Adult failure to thrive Status: Acute Assessment and Plan: Patient has had poor oral intake. She is extremely weak. Patient unable to make medical decisions at this time. Family wished to proceed with Dobbhoff feedings which was placed 02/05. Dobbhoff was placed by Fluoro. Tube feedings were started and she is now at goal. Will stop IV fluids. Hold Megace. Check bedside swallow when more awake and alert. (6) Depression: Code(s): F32.9 - Major depressive disorder, single episode, unspecified Status: Acute Assessment and Plan: Patient with depressed mood possibly contributing to her failure to thrive. Does not have depression on her past medical history nor does she take medications for depression. Will follow. Consider Seroquel at night to help with nocturnal agitation. (7) Chronic pelvic pain syndrome in female: Code(s): R10.2 - Pelvic and perineal pain; G89.29 - Other chronic pain Status: Acute Assessment and Plan: This was the patient's initial complaint. Will need to adjust pain medications. (8) Dehydration: Code(s): E86.0 - Dehydration Status: Acute Assessment and Plan: Resolved (9) DVT prophylaxis: Code(s): Z29.9 - Encounter for prophylactic measures, unspecified Status: Acute Assessment and Plan: Lovenox Subjective Date/time seen: 02/07/21 11:04 Interval history: 80-year-old female with HTN who was admitted on 01/19 for pelvi
--- NOTE | 2021-02-07 11:16 | PCDIET ---
Nutrition Follow-Up Complete: Nutrition Diagnosis: Inadequate oral intake related to nausea as evidenced by poor intake. Nutrition Goal: Patient to meet estimated nutritional needs. Goal met. Patient tolerating Glucerna 1.2 at 55mL/hr goal rate with 30mL water flush every 4 hours via Dobhoff tube. If aggressive nutrition therapy is to continue, would consider long-term feeding tube placement. Could also consider stopping Megace, if medically appropriate, as patient not eating. Last recorded weight is 59.3 kg which is increased from last review. +I/O. Bowel Motility: No new BM documented. If medically appropriate, would add medication for this. Labs Reviewed: Hgb (9.5), Hct (29.5), BUN (42), Cr (0.6), Na (149), Cl (115), PO4 (2.1) Meds Noted: Florastor, NS at 70mL/hr, Vitamin D, Norvasc, Vitamin C, Ativan, Solu Medrol, Zinc Sulfate, Pepcid, Lantus, Megace, Roxanol Additional Notes: s/p Phos-NaK replacement. Noted K+ in goal range. No documented skin breakdown. Nutrition Monitoring and Evaluation: Follow up every Thursday/Thursday.
[2021-02-07 11:43] LABS: Glucose Point of Care 148 mg/dl (65-105)
[2021-02-07] MEDS: ALBUTEROL SULFATE NEB 2.5 MG/0.5 ML INH INHALATION ×2 (13:39→17:44)
[2021-02-07] MEDS: FUROSEMIDE INJ 40 MG/4 ML VIAL 20 MG IV PUSH (17:09)
[2021-02-07 17:54] LABS: Glucose Point of Care 255 mg/dl (65-105)
--- NOTE | 2021-02-07 19:29 | PC.NURSE ---
Pt weaned down 02 during day but during shift change pt began desating into high 70's. Pt had not removed 02 from nose and was resting comfortably at this time. Increased 02 back to 15L highflo NC and could only maintain sats in the low to mid 80's. Added NRB back to face and was able to recover sats into the low 90's at this time. RT called and made aware.
[2021-02-07] MEDS: ACETAMINOPHEN ELIXIR 325 MG/10.15 ML UDC 650 MG FEED TUBE (20:32)
[2021-02-07] MEDS: polyethylene glycoL 3350 17 GM POWD.PACK PO (20:33)
[2021-02-07] MEDS: INSULIN GLARGINE (*BKC) 100 UNITS/ML 8 UNITS SUB-Q (20:36)
[2021-02-07] MEDS: QUEtiapine FUMARATE 12.5 MG TABLET FEED TUBE (20:37)
[2021-02-07] MEDS: FAMOTIDINE 20 MG/2 ML VIAL IV PUSH (20:37)
[2021-02-08] VITALS (25 sets, daily range): BP systolic 99–159; BP diastolic 40–74; PULSE 85–118; RESP 22–30; TEMP 36.9–37.2; O2SAT 70–98
[2021-02-08 01:06] LABS: Glucose Point of Care 165 mg/dl (65-105)
--- NOTE | 2021-02-08 01:15 | PC.NURSE ---
Pt oxygenation decreasing while resting comforting, with saturations as low as 60. Placed on airvo by RT. Able to recover sats in the low 90's. CXR obtained due to worsening lung sounds.
[2021-02-08] MEDS: ALBUTEROL SULFATE NEB 2.5 MG/0.5 ML INH INHALATION ×2 (01:26→08:12)
[2021-02-08] MEDS: LORazepam INJ (*CRX) 2 MG/ML VIAL 0.5 MG IV PUSH ×2 (04:55→09:01)
--- NOTE | 2021-02-08 04:57 | PC.NURSE ---
Pt unable to maintain 02 sats following linen change. Increased 02 to 60L @90% with NRB in addition. RT called and made aware. Unable to maintain sats higher than low 80's at this time. Provider called and made aware.
[2021-02-08 05:11] LABS: Basophils Absolute Auto 0.1 K/mm3 (0.0-0.1); Basophils Percent Auto 0.3 % (0.2-1.2); Eosinophils Percent Auto 0.1 % (0-4.4); Hematocrit 28.9 % (37.0-47.0); Hemoglobin 9.1 g/dL (12.0-15.0); Immature Granulocyte Absolute 0.28 K/mm3 (0.00-0.031); Immature Granulocyte Percent A 1.4 % (0-0.5); Lymphocytes Absolute Auto 0.45 K/mm3 (0.9-3.2); Lymphocytes Percent Auto 2.3 % (18.3-44.2); Mean Corpuscular HGB Conc 31.5 g/dl (32-36); Mean Corpuscular Hemoglobin 28.4 pg (26-34); Mean Corpuscular Volume 90.3 fl (80-100); Mean Platelet Volume 11.4 fl (7.4-10.4); Monocytes Absolute Auto 0.6 K/mm3 (0.1-0.6); Monocytes Percent Auto 3.1 % (2.6-8.5); Neutrophils Absolute Auto 18.3 K/mm3 (1.3-6.7); Neutrophils Percent Auto 92.8 % (45.5-73.1); Nucleated Red Blood Cells Absolute Auto 0.1 K/mm3 (0.0-0.012); Nucleated Red Blood Cells Perc 0.5 % (0.0-0.2); Platelet Count Result 163 k/mm3 (150-375); Red Cell Distribution Width 15.7 % (11.5-14.5); White Blood Count 19.7 K/mm3 (4.5-10.0)
[2021-02-08 05:26] LABS: Albumin Level 2.7 g/dL (3.5-5.1); Anion Gap 5 mmol/L (8-16); Blood Urea Nitrogen 40 mg/dL (7-17); CRP 4.6 mg/dL (<1.0); Calcium 9.7 mg/dL (8.4-10.2); Carbon Dioxide 32 mmol/L (22-30); Chloride 113 mmol/L (98-107); Estimated CRCL calculation 43 ml/min; Estimated Glomerular Filt Rate > 60; Glucose 86 mg/dL (65-105); Magnesium 2.6 mg/dL (1.6-2.3); Phosphorus 3.7 mg/dL (2.5-4.5); Potassium 4.7 mmol/L (3.4-5.0); Sodium 150 mmol/L (137-145)
[2021-02-08 05:32] LABS: NT Pro B Type Natriuretic Pept 2410 pg/mL (5-100)
[2021-02-08] MEDS: CENTRAL LINE FLUSH 10 ML IV PUSH ×3 (06:11→21:05)
--- NOTE | 2021-02-08 08:38 | PM.IMPN ---
Progress Note: A&P Assessment and Plan (1) Acute hypoxemic respiratory failure: Code(s): J96.01 - Acute respiratory failure with hypoxia Status: Acute Assessment and Plan: CTA of the chest on 01/22/2021 showing findings consistent with COVID infection as well as mild interstitial lung disease. Negative for pulmonary embolism at that time. Repeat CTA on 01/25 showing pneumomediastinum him right pneumothorax. She also had echocardiogram on 01/29 which showed EF of 70%, grade 2 diastolic dysfunction and a patent foramen ovale with a [id number] shunt. Most likely her major insult is from the COVID infection worsened by her underlying lung and cardiac issues. Pulmonary following and appreciate their recommendations. She has completed 10 days of treatment with Remdesivir and dexamethasone. Patient is a DNR. Patient is very weak from lack of oral intake. Dobhoff was placed and patient was started on tube feedings. Hospice was discussed with family but no plans to proceed in this direction at this time. Condition worsening. CXR reviewed showing no change. WBC still elevated felt related to steroids but improved. Is she aspirating? Continue to wean O2 as tolerated. Continue supportive care. Check ABG. May need BiPAP. Stop sedatives. (2) Pneumonia due to COVID-19 virus: Code(s): U07.1 - COVID-19; J12.82 - Pneumonia due to coronavirus disease 2019 Status: Acute Assessment and Plan: Patient tested positive for COVID-19 on 01/22/2021. She completed 10 days of remdesivir and dexamethasone. Convalescent plasma given on 01/29. Solu-Medrol started 02/05. Some improvement with hypoxia 02/06 but worse again overnight. Change Albuterol to Xopenex. Continue supportive care. (3) Pneumothorax: Code(s): J93.9 - Pneumothorax, unspecified Status: Acute Assessment and Plan: Chest CTA on 01/25 showed widespread pneumomediastinum tracking to the neck in bilateral axilla with a small right pneumothorax. Repeat chest x-ray today reviewed showing persistent pneumomediastinum and likely persistent tiny biapical pneumothoraces. Continue supportive care. General surgery input appreciated. (4) Hyperglycemia: Code(s): R73.9 - Hyperglycemia, unspecified Status: Acute Assessment and Plan: Related to steroids. Glucose stable. Continue AccuCheks covering with sliding scale. Hypoglycemia protocol available as needed. Will decrease Lantus dose slightly. (5) Adult failure to thrive: Code(s): R62.7 - Adult failure to thrive Status: Acute Assessment and Plan: Patient has had poor oral intake. She is extremely weak. Patient unable to make medical decisions at this time. Family wished to proceed with Dobbhoff feedings which was placed 02/05. Dobbhoff was placed by Fluoro. Tube feedings were started and she is now at goal. Check bedside swallow when more awake and alert. Stop Ativan and Morphine which could be contributing to her mental status (6) Depression: Code(s): F32.9 - Major depressive disorder, single episode, unspecified Status: Acute Assessment and Plan: Patient with depressed mood possibly contributing to her failure to thrive. Does not have depression on her past medical history nor does she take medications for depression but family provides hx suggestive of longstanding depression. Continue Seroquel at night to help with nocturnal agitation. (7) Chronic pelvic pain syndrome in female: Code(s): R10.2 - Pelvic and perineal pain; G89.29 - Other chronic pain Status: Acute Assessment and Plan: This was the patient's initial complaint. Will need to adjust pain medications again. Stop morphine. Family stated that they did not think that the patietn was taking her home narcotics regularly. (8) Dehydration: Code(s): E86.0 - Dehydration Status: Acute Assessment and Plan: Resolv
[2021-02-08] MEDS: ENOXAPARIN 40 MG/0.4 ML SYRINGE SUB-Q ×2 (08:54→20:48)
[2021-02-08] MEDS: methylPREDNISolone SOD SUCC 40 MG VIAL IV PUSH (08:54)
[2021-02-08] MEDS: polyethylene glycoL 3350 17 GM POWD.PACK PO (08:55)
[2021-02-08] MEDS: FAMOTIDINE 20 MG/2 ML VIAL IV PUSH ×2 (08:55→20:49)
[2021-02-08] MEDS: LIDOCAINE 5% PATCH 1 PATCH TRANSDERM (08:55)
[2021-02-08] MEDS: amLODIPine BESYLATE 5 MG TABLET PO (08:55)
[2021-02-08 10:12] LABS: Alveolar/Arterial O2 Gradient 462.9 mmHg; Base Excess ABG 6.6 mEq/l (+/-2.0); Fractional Inspired Oxygen 80 %; HCO3 ABG 28.3 mEq/l (22.0-26.0); Oxygen Saturation ABG 96.9 % (95.0-100.0); Oxyhemoglobin 94.7 % THb (90.0-100.0); PCO2 ABG 30.7 mmHg (35.0-45.0); PO2 ABG 75.3 mmHg (80.0-100.0); PO2 FiO2 Ratio Arterial Blood 0.94 %; Total Hemoglobin 11.2 g/dL (12.0-18.0)
[2021-02-08 10:14] LABS: pH ABG 7.583 (7.350-7.450)
[2021-02-08 10:15] LABS: Device HIGH FLOW THERAPY; Modified Allen's Test Pass; Site Drawn LEFT RADIAL
--- NOTE | 2021-02-08 11:27 | PCDIET ---
Nutrition Follow-Up Complete: Nutrition Diagnosis: Inadequate oral intake related to nausea as evidenced by poor po intake reported Nutrition Goal: Patient to meet estimated nutritional needs. Goal met. Patient tolerating Glucerna 1.2 at 55mL/hr goal rate, per RN, without any interruptions overnight. Last recorded weight is 58.3 kg which is down from last review. +I/O. Bowel Motility: +BM. Labs Reviewed: Hgb (9.1), Hct (28.9), BUN (40), Cl (113), Na (150), BNP (2410) Meds Noted: Norvasc, Pepcid, Solu Medrol, Miralax, Lantus, Xopenex, Florastor, Ativan Additional Notes: No documented skin breakdown. Will continue to monitor with same goal. Nutrition Monitoring and Evaluation: RD will monitor every Thursday/Thursday.
[2021-02-08] MEDS: ACETAMINOPHEN ELIXIR 325 MG/10.15 ML UDC 650 MG FEED TUBE (12:20)
[2021-02-08] MEDS: INSULIN ASPART (*BKC) 100 UNITS/ML SUB-Q ×2 (12:28→17:56)
[2021-02-08 13:16] LABS: Glucose Point of Care 226 mg/dl (65-105)
[2021-02-08 18:57] LABS: Glucose Point of Care 201 mg/dl (65-105)
[2021-02-08] MEDS: QUEtiapine FUMARATE 12.5 MG TABLET FEED TUBE (20:50)
[2021-02-08] MEDS: INSULIN GLARGINE (*BKC) 100 UNITS/ML 6 UNITS SUB-Q (21:21)
[2021-02-08 21:24] LABS: Glucose Point of Care 165 mg/dl (65-105)
[2021-02-09] VITALS (25 sets, daily range): BP systolic 122–149; BP diastolic 65–76; PULSE 83–110; RESP 20–36; TEMP 36.4–37.4; O2SAT 84–100
[2021-02-09 00:04] LABS: Glucose Point of Care 137 mg/dl (65-105)
[2021-02-09] MEDS: ACETAMINOPHEN ELIXIR 325 MG/10.15 ML UDC 650 MG FEED TUBE (01:15)
[2021-02-09 04:36] LABS: Glucose Point of Care 115 mg/dl (65-105)
[2021-02-09] MEDS: CENTRAL LINE FLUSH 10 ML IV PUSH ×2 (05:47→20:38)
[2021-02-09] MEDS: CENTRAL LINE FLUSH 20 ML IV PUSH (05:48)
[2021-02-09 06:13] LABS: Basophils Percent Auto 0.2 % (0.2-1.2); Eosinophils Percent Auto 0.2 % (0-4.4); Hematocrit 25.8 % (37.0-47.0); Hemoglobin 8.2 g/dL (12.0-15.0); Immature Granulocyte Absolute 0.33 K/mm3 (0.00-0.031); Immature Granulocyte Percent A 1.7 % (0-0.5); Lymphocytes Absolute Auto 0.56 K/mm3 (0.9-3.2); Lymphocytes Percent Auto 2.9 % (18.3-44.2); Mean Corpuscular HGB Conc 31.8 g/dl (32-36); Mean Corpuscular Hemoglobin 27.8 pg (26-34); Mean Corpuscular Volume 87.5 fl (80-100); Mean Platelet Volume 11.7 fl (7.4-10.4); Monocytes Absolute Auto 0.4 K/mm3 (0.1-0.6); Monocytes Percent Auto 2.2 % (2.6-8.5); Neutrophils Absolute Auto 17.7 K/mm3 (1.3-6.7); Neutrophils Percent Auto 92.8 % (45.5-73.1); Nucleated Red Blood Cells Absolute Auto 0.1 K/mm3 (0.0-0.012); Nucleated Red Blood Cells Perc 0.4 % (0.0-0.2); Platelet Count Result 136 k/mm3 (150-375); Red Blood Count 2.95 M/mm3 (4.2-5.4); Red Cell Distribution Width 16.2 % (11.5-14.5); White Blood Count 19.1 K/mm3 (4.5-10.0)
[2021-02-09 06:23] LABS: Albumin Level 2.7 g/dL (3.5-5.1); Anion Gap 2 mmol/L (8-16); Blood Urea Nitrogen 33 mg/dL (7-17); Calcium 9.7 mg/dL (8.4-10.2); Carbon Dioxide 32 mmol/L (22-30); Chloride 112 mmol/L (98-107); Estimated CRCL calculation 43 ml/min; Estimated Glomerular Filt Rate > 60; Glucose 106 mg/dL (65-105); Magnesium 2.6 mg/dL (1.6-2.3); Phosphorus 3.8 mg/dL (2.5-4.5); Potassium 4.7 mmol/L (3.4-5.0); Sodium 146 mmol/L (137-145)
[2021-02-09 07:50] LABS: Glucose Point of Care 105 mg/dl (65-105)
[2021-02-09] MEDS: FAMOTIDINE 20 MG/2 ML VIAL IV PUSH ×2 (09:50→20:39)
[2021-02-09] MEDS: methylPREDNISolone SOD SUCC 40 MG VIAL IV PUSH (09:50)
[2021-02-09] MEDS: ENOXAPARIN 40 MG/0.4 ML SYRINGE SUB-Q ×2 (09:51→20:39)
[2021-02-09 12:27] LABS: Glucose Point of Care 111 mg/dl (65-105)
--- NOTE | 2021-02-09 13:22 | PM.IMPN ---
Progress Note: A&P Assessment and Plan (1) Acute hypoxemic respiratory failure: Code(s): J96.01 - Acute respiratory failure with hypoxia Status: Acute Assessment and Plan: CTA of the chest on 01/22/2021 showing findings consistent with COVID infection as well as mild interstitial lung disease. Negative for pulmonary embolism at that time. Repeat CTA on 01/25 showing pneumomediastinum him right pneumothorax. She also had echocardiogram on 01/29 which showed EF of 70%, grade 2 diastolic dysfunction and a patent foramen ovale with a [id number] shunt. Most likely her major insult is from the COVID infection worsened by her underlying lung and cardiac issues. Pulmonary following and appreciate their recommendations. She has completed 10 days of treatment with Remdesivir and dexamethasone. Patient is a DNR. Patient is very weak from lack of oral intake. Dobhoff was placed and patient was started on tube feedings. Hospice was discussed with family but no plans to proceed in this direction at this time. Condition worsening. CXR reviewed showing no change. WBC still elevated felt related to steroids but improved. Is she aspirating? Continue to wean O2 as tolerated. Continue supportive care. Check ABG. May need BiPAP. Stop sedatives. 02/09/21 no resp improvement currently on HF 60L 80% cont current care wean as tolerated (2) Pneumonia due to COVID-19 virus: Code(s): U07.1 - COVID-19; J12.82 - Pneumonia due to coronavirus disease 2019 Status: Acute Assessment and Plan: Patient tested positive for COVID-19 on 01/22/2021. She completed 10 days of remdesivir and dexamethasone. Convalescent plasma given on 01/29. Solu-Medrol started 02/05. Some improvement with hypoxia 02/06 but worse again overnight. Change Albuterol to Xopenex. Continue supportive care. 02/09/21 remains clinically ill despite therapy family aware of poor prognosis (3) Pneumothorax: Code(s): J93.9 - Pneumothorax, unspecified Status: Acute Assessment and Plan: Chest CTA on 01/25 showed widespread pneumomediastinum tracking to the neck in bilateral axilla with a small right pneumothorax. Repeat chest x-ray today reviewed showing persistent pneumomediastinum and likely persistent tiny biapical pneumothoraces. Continue supportive care. General surgery input appreciated. (4) Hyperglycemia: Code(s): R73.9 - Hyperglycemia, unspecified Status: Acute Assessment and Plan: Related to steroids. Glucose stable. Continue AccuCheks covering with sliding scale. Hypoglycemia protocol available as needed. Will decrease Lantus dose slightly. 02/07/21 BG at goal (5) Adult failure to thrive: Code(s): R62.7 - Adult failure to thrive Status: Acute Assessment and Plan: Patient has had poor oral intake. She is extremely weak. Patient unable to make medical decisions at this time. Family wished to proceed with Dobbhoff feedings which was placed 02/05. Dobbhoff was placed by Fluoro. Tube feedings were started and she is now at goal. Check bedside swallow when more awake and alert. Stop Ativan and Morphine which could be contributing to her mental status (6) Depression: Code(s): F32.9 - Major depressive disorder, single episode, unspecified Status: Acute Assessment and Plan: Patient with depressed mood possibly contributing to her failure to thrive. Does not have depression on her past medical history nor does she take medications for depression but family provides hx suggestive of longstanding depression. Continue Seroquel at night to help with nocturnal agitation. (7) Chronic pelvic pain syndrome in female: Code(s): R10.2 - Pelvic and perineal pain; G89.29 - Other chronic pain Status: Acute Assessment and Plan: This was the patient's initial complaint. Will need to adjust pain medications again. Stop morphine. Family stated that
[2021-02-09 17:57] LABS: Glucose Point of Care 143 mg/dl (65-105)
[2021-02-09 20:35] LABS: Glucose Point of Care 131 mg/dl (65-105)
[2021-02-09] MEDS: QUEtiapine FUMARATE 12.5 MG TABLET FEED TUBE (20:40)
[2021-02-09] MEDS: DEXTROSE 5%/0.45% SOD CHL 1,000 ML 50 ML IV CONT (20:40)
[2021-02-09 23:32] LABS: Glucose Point of Care 123 mg/dl (65-105)
[2021-02-10] VITALS (21 sets, daily range): BP systolic 106–152; BP diastolic 58–87; PULSE 93–110; RESP 20–32; TEMP 36.2–37.3; O2SAT 92–97
[2021-02-10] MEDS: CENTRAL LINE FLUSH 10 ML IV PUSH ×2 (05:28→20:39)
[2021-02-10 05:32] LABS: Glucose Point of Care 126 mg/dl (65-105)
[2021-02-10 05:35] LABS: Basophils Percent Auto 0.1 % (0.2-1.2); Eosinophils Percent Auto 0.1 % (0-4.4); Hematocrit 24.4 % (37.0-47.0); Hemoglobin 7.7 g/dL (12.0-15.0); Immature Granulocyte Absolute 0.19 K/mm3 (0.00-0.031); Immature Granulocyte Percent A 1.1 % (0-0.5); Lymphocytes Absolute Auto 0.44 K/mm3 (0.9-3.2); Lymphocytes Percent Auto 2.5 % (18.3-44.2); Mean Corpuscular HGB Conc 31.6 g/dl (32-36); Mean Corpuscular Hemoglobin 28.1 pg (26-34); Mean Corpuscular Volume 89.1 fl (80-100); Mean Platelet Volume 11.6 fl (7.4-10.4); Monocytes Absolute Auto 0.5 K/mm3 (0.1-0.6); Monocytes Percent Auto 2.6 % (2.6-8.5); Neutrophils Absolute Auto 16.7 K/mm3 (1.3-6.7); Neutrophils Percent Auto 93.6 % (45.5-73.1); Nucleated Red Blood Cells Absolute Auto 0.1 K/mm3 (0.0-0.012); Nucleated Red Blood Cells Perc 0.3 % (0.0-0.2); Platelet Count Result 125 k/mm3 (150-375); Red Blood Count 2.74 M/mm3 (4.2-5.4); Red Cell Distribution Width 16.4 % (11.5-14.5); White Blood Count 17.8 K/mm3 (4.5-10.0)
[2021-02-10 05:52] LABS: Anion Gap 6 mmol/L (8-16); Blood Urea Nitrogen 27 mg/dL (7-17); Calcium 8.8 mg/dL (8.4-10.2); Carbon Dioxide 24 mmol/L (22-30); Chloride 116 mmol/L (98-107); Estimated CRCL calculation 50 ml/min; Estimated Glomerular Filt Rate > 60; Glucose 127 mg/dL (65-105); Magnesium 2.6 mg/dL (1.6-2.3); Potassium 4.4 mmol/L (3.4-5.0); Sodium 146 mmol/L (137-145)
[2021-02-10] MEDS: methylPREDNISolone SOD SUCC 40 MG VIAL IV PUSH (11:11)
[2021-02-10] MEDS: FAMOTIDINE 20 MG/2 ML VIAL IV PUSH ×2 (11:11→20:39)
[2021-02-10] MEDS: ENOXAPARIN 40 MG/0.4 ML SYRINGE SUB-Q ×2 (11:11→20:38)
[2021-02-10 12:50] LABS: Glucose Point of Care 130 mg/dl (65-105)
--- NOTE | 2021-02-10 15:00 | PM.IMPN ---
Progress Note: A&P Assessment and Plan (1) Acute hypoxemic respiratory failure: Code(s): J96.01 - Acute respiratory failure with hypoxia Status: Acute Assessment and Plan: CTA of the chest on 01/22/2021 showing findings consistent with COVID infection as well as mild interstitial lung disease. Negative for pulmonary embolism at that time. Repeat CTA on 01/25 showing pneumomediastinum him right pneumothorax. She also had echocardiogram on 01/29 which showed EF of 70%, grade 2 diastolic dysfunction and a patent foramen ovale with a [id number] shunt. Most likely her major insult is from the COVID infection worsened by her underlying lung and cardiac issues. Pulmonary following and appreciate their recommendations. She has completed 10 days of treatment with Remdesivir and dexamethasone. Patient is a DNR. Patient is very weak from lack of oral intake. Dobhoff was placed and patient was started on tube feedings. Hospice was discussed with family but no plans to proceed in this direction at this time. Condition worsening. CXR reviewed showing no change. WBC still elevated felt related to steroids but improved. Is she aspirating? Continue to wean O2 as tolerated. Continue supportive care. Check ABG. May need BiPAP. Stop sedatives. (2) Pneumonia due to COVID-19 virus: Code(s): U07.1 - COVID-19; J12.82 - Pneumonia due to coronavirus disease 2019 Status: Acute Assessment and Plan: Patient tested positive for COVID-19 on 01/22/2021. She completed 10 days of remdesivir and dexamethasone. Convalescent plasma given on 01/29. Solu-Medrol started 02/05. Some improvement with hypoxia 02/06 but worse again overnight. Change Albuterol to Xopenex. Continue supportive care. 02/09/21 remains clinically ill despite therapy family aware of poor prognosis (3) Pneumothorax: Code(s): J93.9 - Pneumothorax, unspecified Status: Acute Assessment and Plan: Chest CTA on 01/25 showed widespread pneumomediastinum tracking to the neck in bilateral axilla with a small right pneumothorax. Repeat chest x-ray today reviewed showing persistent pneumomediastinum and likely persistent tiny biapical pneumothoraces. Continue supportive care. General surgery input appreciated. (4) Hyperglycemia: Code(s): R73.9 - Hyperglycemia, unspecified Status: Acute Assessment and Plan: Related to steroids. Glucose stable. Continue AccuCheks covering with sliding scale. Hypoglycemia protocol available as needed. Will decrease Lantus dose slightly. 02/07/21 BG at goal (5) Adult failure to thrive: Code(s): R62.7 - Adult failure to thrive Status: Acute Assessment and Plan: Patient has had poor oral intake. She is extremely weak. Patient unable to make medical decisions at this time. Family wished to proceed with Dobbhoff feedings which was placed 02/05. Dobbhoff was placed by Fluoro. Tube feedings were started and she is now at goal. Check bedside swallow when more awake and alert. Stop Ativan and Morphine which could be contributing to her mental status (6) Depression: Code(s): F32.9 - Major depressive disorder, single episode, unspecified Status: Acute Assessment and Plan: Patient with depressed mood possibly contributing to her failure to thrive. Does not have depression on her past medical history nor does she take medications for depression but family provides hx suggestive of longstanding depression. Continue Seroquel at night to help with nocturnal agitation. (7) Chronic pelvic pain syndrome in female: Code(s): R10.2 - Pelvic and perineal pain; G89.29 - Other chronic pain Status: Acute Assessment and Plan: This was the patient's initial complaint. Will need to adjust pain medications again. Stop morphine. Family stated that they did not think that the patietn was taking her home narcotics regularly. (8) Dehyd
[2021-02-10 18:01] LABS: Glucose Point of Care 183 mg/dl (65-105)
[2021-02-10] MEDS: QUEtiapine FUMARATE 12.5 MG TABLET FEED TUBE (20:39)
[2021-02-10] MEDS: MORPHINE SULFATE (*CRX) 2 MG/ML INJ 1 MG IV PUSH (20:39)
[2021-02-10] MEDS: DEXTROSE 5%/0.45% SOD CHL 1,000 ML 50 ML IV CONT (20:40)
[2021-02-11] VITALS (12 sets, daily range): BP systolic 123–153; BP diastolic 64–95; PULSE 79–115; RESP 20–28; TEMP 36.8–37.4; O2SAT 92–95
[2021-02-11 00:29] LABS: Glucose Point of Care 163 mg/dl (65-105)
[2021-02-11] MEDS: MORPHINE SULFATE (*CRX) 2 MG/ML INJ 1 MG IV PUSH (00:32)
[2021-02-11] MEDS: CENTRAL LINE FLUSH 10 ML IV PUSH (06:36)
[2021-02-11 07:01] LABS: Glucose Point of Care 170 mg/dl (65-105)
--- NOTE | 2021-02-11 10:56 | PM.IMPN ---
Progress Note: A&P Assessment and Plan (1) Acute hypoxemic respiratory failure: Code(s): J96.01 - Acute respiratory failure with hypoxia Status: Acute Assessment and Plan: CTA of the chest on 01/22/2021 showing findings consistent with COVID infection as well as mild interstitial lung disease. Negative for pulmonary embolism at that time. Repeat CTA on 01/25 showing pneumomediastinum him right pneumothorax. She also had echocardiogram on 01/29 which showed EF of 70%, grade 2 diastolic dysfunction and a patent foramen ovale with a [id number] shunt. Most likely her major insult is from the COVID infection worsened by her underlying lung and cardiac issues. Pulmonary following and appreciate their recommendations. She has completed 10 days of treatment with Remdesivir and dexamethasone. Patient is a DNR. Patient is very weak from lack of oral intake. Dobhoff was placed and patient was started on tube feedings but now tube is out. Hospice was discussed with family earlier in the hospital course but no plans to proceed at that time. Patient's condition severe but stable at the moment. She had improvement on 02/06 but now worsening felt related to COVID complicated by the above issues. She could be aspirating as well. Continue supportive care. Family is considering moving patient to comfort measures. (2) Pneumonia due to COVID-19 virus: Code(s): U07.1 - COVID-19; J12.82 - Pneumonia due to coronavirus disease 2019 Status: Acute Assessment and Plan: Patient tested positive for COVID-19 on 01/22/2021. She completed 10 days of remdesivir and dexamethasone. Convalescent plasma given on 01/29. Solu-Medrol started 02/05. Some improvement with hypoxia 02/06 but worsened again. Continue Xopenex. Continue supportive care. (3) Pneumothorax: Code(s): J93.9 - Pneumothorax, unspecified Status: Acute Assessment and Plan: Chest CTA on 01/25 showed widespread pneumomediastinum tracking to the neck in bilateral axilla with a small right pneumothorax. Repeat chest x-ray 02/08 showing persistent pneumomediastinum and likely persistent tiny biapical pneumothoraces. Continue supportive care. (4) Hyperglycemia: Code(s): R73.9 - Hyperglycemia, unspecified Status: Acute Assessment and Plan: Related to steroids. Glucose reviewed on 02/11 and stable. Continue AccuCheks covering with sliding scale. Hypoglycemia protocol available as needed. (5) Adult failure to thrive: Code(s): R62.7 - Adult failure to thrive Status: Acute Assessment and Plan: Patient has had poor oral intake. She is extremely weak. Patient unable to make medical decisions at this time. Family wished to proceed with Dobbhoff feedings which was placed 02/05. Dobbhoff was placed by [facility]. Tube feedings were started but tube became clogged and thus removed. Patient more alert now but family wanting comfort measures. (6) Depression: Code(s): F32.9 - Major depressive disorder, single episode, unspecified Status: Acute Assessment and Plan: Patient with depressed mood possibly contributing to her failure to thrive. Does not have depression on her past medical history nor does she take medications for depression but family provides hx suggestive of longstanding depression. Treated with Seroquel at night to help with nocturnal agitation. (7) Chronic pelvic pain syndrome in female: Code(s): R10.2 - Pelvic and perineal pain; G89.29 - Other chronic pain Status: Acute Assessment and Plan: This was part of the patient's initial complaint. Appears to have more chronic pain. (8) Dehydration: Code(s): E86.0 - Dehydration Status: Acute Assessment and Plan: Resolved (9) DVT prophylaxis: Code(s): Z29.9 - Encounter for prophylactic measures, unspecified Status: Acute Assessment and Plan: Lovenox
[2021-02-11 13:10] LABS: Glucose Point of Care 162 mg/dl (65-105)
--- NOTE | 2021-02-11 13:14 | PC.NURSE ---
I spoke with the son and daughter who came to the desk and asked that I inform Dr. Mario that all of the family who wished to say their goodbyes to Grisel had done so and the family wanted to proceed to the next steps of making her comfort measures. I informed them I would tell Dr. Mario immediately. I spoke with Dr. Mario in person and updated him of the situation and he stated that he will enter the orders.
[2021-02-11] MEDS: MORPHINE SULFATE INJ (*CRX) 50 MG in SODIUM CHLORIDE 0.9% IV 95 ML IV CONT (14:28)
[2021-02-11] MEDS: SCOPOLAMINE 1.5 MG PATCH TRANSDERM (14:31)
[2021-02-11] MEDS: LORazepam INJ (*CRX) 2 MG/ML VIAL 1 MG IV PUSH (15:37)
[2021-02-11] MEDS: MORPHINE SULFATE (*CRX) 4 MG/ML INJ IV PUSH ×2 (15:38→21:04)
--- NOTE | 2021-02-11 20:10 | PC.NURSE ---
Report given to ALISHA Gale.
--- NOTE | 2021-02-11 20:40 | PC.NURSE ---
This patient, Grisel Weston, was received from IMU on 02/11/21 at 2040. Patient/family oriented to unit policies and routines
--- NOTE | 2021-02-11 20:44 | PC.NURSE ---
Transferred to room 325.
--- NOTE | 2021-02-12 07:35 | PM.DDS ---
Discharge Sum: Prov Provider Primary care physician: Deandra Portillo, Admitting provider: Margarette Peter MD Consults: 01/25/21 Consult to Physician Routine Comment: Consulting Provider: Magnolia Suggs Reason for consultation: Pneumothorax Has provider been notified: No 01/26/21 Consult to Physician Routine Comment: Consulting Provider: Delgado Marroquin Reason for consultation: pneumothorax, COVID, worsening respiratory failure Has provider been notified: No 01/27/21 Care Coordination Consult Routine Comment: Reason for Consult:: Hospice Referral 01/29/21 Consult to Dietitian Routine Reason for Consult:: Improve nutrition Consult to Physician Routine Comment: Consulting Provider: Mikey Angeles portable machine sander/MD group to consult: Pulmonary Reason for consultation: Covid Has provider been notified: Yes Discharge Sum: Diag PCOD Acute hypoxic respiratory failure secondary to COVID-19 Contributing Factors (1) Acute hypoxemic respiratory failure: (2) Pneumonia due to COVID-19 virus: (3) Pneumothorax: (4) Hyperglycemia: (5) Adult failure to thrive: (6) Depression: (7) Chronic pelvic pain syndrome in female: (8) Dehydration: (9) DVT prophylaxis: Discharge Sum: Summary Date and Time Date of admission: 01/21/21 15:58 Date of : 02/12/21 Time of : 03:00 Summary Details: 80-year-old female with HTN admitted on 01/19 for weakness and poor appetite with weight loss who developed hypoxia and diagnosed with COVID 01/22. CTA of the chest on 01/22/2021 showing findings consistent with COVID infection as well as mild interstitial lung disease. Negative for pulmonary embolism at that time. Repeat CTA on 01/25 showing pneumomediastinum him right pneumothorax. She also had echocardiogram on 01/29 which showed EF of 70%, grade 2 diastolic dysfunction and a patent foramen ovale with a [id number] shunt. Most likely her major insult is from the COVID infection worsened by her underlying lung and cardiac issues. Pulmonary followed. She completed 10 days of treatment with Remdesivir and dexamethasone. Patient was a DNR. Patient was very weak from lack of oral intake. Dobhoff was placed and patient was started on tube feedings. Hospice was discussed with family earlier in the hospital course but they declined at that time. Solu-Medrol started 02/05. Some improvement with hypoxia 02/06 but worsened again. Patient's condition became severe requiring HFNC and nonrebreather mask at times. Patient became more alert but was confused. She told family that she did not want to continue treatment. Family spoke among themselves and agree to change patient to comfort measures. Comfort measures plan discussed and included morphine drip. Family agreeeable and patient moved to comfort measures. She was made comfortable and in the hairspring vibrator hours of 02/12/21. Additional Data Attending physician: Claudy Mario MD Was code activated?: No Advance directives: Yes (DNR) Hospice patient?: No
--- NOTE | 2021-02-12 10:40 | PC.NURSE ---
Per Shahla Campos RN at 0348 on 02/12/2021 0300: Family summons SN to room 320 to find patient w/ no pulse and skin cold to the touch. Notified House Sup (Leatha). Comfort and consolement extended to family members w/o incident. Note was entered into wrong patients chart, Grisel Weston is the correct patient.
== END 2021-02-12 03:00 | disposition expired | DRG 177 ==
LOC: ANHED 07:18 → ANH2MED 10:15 → ANH3MEDSUR 01-22 09:40 → ANHICU 01-26 00:38 → ANHIMU 02-05 18:30 → ANH3MEDSUR 02-11 20:45
PROVIDERS: Emergency Medicine; Hospitalist; Internal Medicine; Internal Medicine Pulmonary Disease; Admitting Provider Family Medicine; Emergency Provider Emergency Medicine; PCP Internal Medicine; Visit Provider Internal Medicine
DX: U07.1 COVID-19 (principal); J12.82 Pneumonia due to coronavirus disease 2019; J96.01 Acute respiratory failure with hypoxia; J93.9 Pneumothorax, unspecified; J98.2 Interstitial emphysema; E87.6 Hypokalemia; R10.2 Pelvic and perineal pain; G89.29 Other chronic pain; F32.9 Major depressive disorder, single episode, unspecified; E86.0 Dehydration; R62.7 Adult failure to thrive; I10 Essential (primary) hypertension; R73.9 Hyperglycemia, unspecified; K21.9 Gastro-esophageal reflux disease without esophagitis; R19.7 Diarrhea, unspecified; Z66 Do not resuscitate; Z51.5 Encounter for palliative care; Z98.84 Bariatric surgery status; Z79.899 Other long term (current) drug therapy; Z88.2 Allergy status to sulfonamides; Z88.6 Allergy status to analgesic agent; Z91.041 Radiographic dye allergy status
CPT/HCPCS: 36415; 36430; 36569; 36600; 43752; 51701; 71045; 71046; 71275; 74018; 80048; 80053; 80069; 81001; 82565; 82652; 82728; 82805; 82948; 83615; 83735; 83880; 84100; 84145; 84460; 85025; 85027; 85380; 85610; 85652; 86140; 86900; 86901; 93005; 93306; 94640; 96361; 96365; 96366; 96367; 96372; 96375; 96376; 97116; 97161; 97165; 97530; 99285; A9270; C1751; C9803; G0378; J0131; J0456; J0692; J1100; J1650; J1815; J1940; J2060; J2270; J2405; J2920; J2930; J3480; J7030; J7120; J7512; J8540; P9059; Q9967; U0003; U0005